=== PATIENT | female | born 1975 | race Caucasian/White ===

== ENCOUNTER 2017-11-12 11:21 | Inpatient (IN) | payer SELFPAY ==
[~2017-11-12] VITALS: Ht 167.6 cm; Wt 99.0 kg
[2017-11-12] VITALS (11 sets, daily range): BP systolic 84–134; BP diastolic 33–85; PULSE 82–100; RESP 16–28; TEMP 94.2–97.9; O2SAT 97–100
[2017-11-12] MEDS ORDERED: ROCURONIUM INJ 50 MG/5 ML SYRINGE IV PUSH ONE (12:00)
[2017-11-12] MEDS ORDERED: PROPOFOL 200 MG/20 ML AMP IV ONE (12:00)
[2017-11-12] MEDS ORDERED: SODIUM CHLORID 0.9% 500 ML INJ 500 ML IV ONE (12:00)
[2017-11-12] MEDS ORDERED: LACTATED RINGER'S 1000 ML INJ 1,000 ML IV ONE (12:00)
[2017-11-12] MEDS ORDERED: OCTREOTIDE INJ 100 MCG/ML VIAL IV PUSH ONE (12:15)
[2017-11-12] MEDS ORDERED: ONDANSETRON HCL 4 MG/2 ML VIAL IV PUSH ONE (12:15)
[2017-11-12] MEDS ORDERED: PANTOPRAZOLE SODIUM 40 MG VIAL IV PUSH ONE (12:15)
[2017-11-12] MEDS ORDERED: DEXTROSE 50% IN WATER 50 ML SYRINGE IV PUSH ONE (12:15)
[2017-11-12] MEDS ORDERED: THIAMINE INJ 100 MG in SODIUM CHLORIDE 0.9% INJ 100 ML IV ONE (12:15)
[2017-11-12] MEDS ORDERED: SODIUM CHLOR 0.9% 250 ML INJ 250 ML IV ONE ×5 (12:15→20:30)
--- NOTE | 2017-11-12 12:16 | PD ---
HPI Chief Complaint: General Weakness Time Seen by Provider: 12:04 Travel History International Travel<30 days: No Contact w/Intl Traveler<30days: No Traveled to known affect area: No History of Present Illness HPI Patient is a 42-year-old female with a history of cirrhosis secondary to alcoholism has not had a drink in 18 months per mom presents emergency department for evaluation of dark tarry stools and black emesis with coffee- ground starting last night. Patient is also been very weak and has fallen at home, patient states she feels like she is going to get sick and vomits during my initial evaluation. She appears quite pale and jaundiced. States symptoms are severe, started yesterday, context as above, not associated with any abdominal pain. [facility] Past Medical History Cirrhosis: Yes Influenza Vaccination: No ?: Not Past Surgical History Hysterectomy: Yes Social History Alcohol Use: No (quit 18 months ago) Tobacco Use: Yes (08/09 ppd) Substance Use: No Allergies-Medications (Allergen,Severity, Reaction): Coded Allergies: Penicillins (Verified Allergy, Intermediate, HIVES, 11/12/17) Reported Meds & Prescriptions Reported Meds & Active Scripts Active No Active Prescriptions or Reported Medications Review of Systems Except as stated in HPI: all other systems reviewed are Neg Physical Exam Narrative GENERAL: Well-developed well-nourished pale and jaundiced, vomiting dark loose material. SKIN: Focused skin assessment warm/dry. HEAD: Atraumatic. Normocephalic. EYES: Pupils equal and round. No scleral icterus. No injection or drainage. ENT: No nasal bleeding or discharge. Mucous membranes pink and moist. NECK: Trachea midline. No JVD. CARDIOVASCULAR: Regular rate and rhythm. No murmur appreciated. RESPIRATORY: No accessory muscle use. Clear to auscultation. Breath sounds equal bilaterally. GASTROINTESTINAL: Abdomen soft, non-tender, nondistended. Hepatic and splenic margins not palpable. MUSCULOSKELETAL: No obvious deformities. No clubbing. No cyanosis. No edema. NEUROLOGICAL: Awake and alert. Fairly slow to respond, no obvious cranial nerve deficits, full strength in all 5 extremities. She is alert and awake and oriented. PSYCHIATRIC: Appropriate mood and affect; insight and judgment normal. Data Data Last Documented VS Vital Signs Date Time Temp Pulse Resp B/P (MAP) Pulse Ox O2 Delivery O2 Flow Rate FiO2 11/12/17 11:25 97.5 90 18 111/54 (73) 100 Orders Orders Urinalysis - C+S If Indicated (11/12/17 12:05) Ed Urine Pregnancytest Poc (11/12/17 12:05) Ammonia (11/12/17 12:07) Complete Blood Count With Diff (11/12/17 12:07) Comprehensive Metabolic Panel (11/12/17 12:07) Prothrombin Time / Inr (Pt) (11/12/17 12:07) Act Partial Throm Time (Ptt) (11/12/17 12:07) Thyroid Stimulating Hormone (11/12/17 12:07) Blood Glucose (11/12/17 12:07) Ecg Monitoring (11/12/17 12:07) Iv Access Insert/Monitor (11/12/17 12:07) Oximetry (11/12/17 12:07) Sodium Chloride 0.9% Flush (Ns Flush) (11/12/17 12:15) Dextrose 50% In Swathi (Syr) Inj (D50w (Syr (11/12/17 12:15) Thiamine Inj (Thiamine Inj) (11/12/17 12:15) Type And Screen (11/12/17 12:07) Blood Product Administration (11/12/17 12:07) Sodium Chlor 0.9% 250 Ml Inj (Ns 250 Ml (11/12/17 12:15) Red Blood Cells (Rbc) (11/12/17 12:07) Ondansetron Inj (Zofran Inj) (11/12/17 12:15) Pantoprazole Inj (Protonix Inj) (11/12/17 12:15) Octreotide Inj (Sandostatin Inj) (11/12/17 12:15) Blood Product Administration (11/12/17 12:56) Sodium Chlor 0.9% 250 Ml Inj (Ns 250 Ml (11/12/17 13:00) Sodium Chlor 0.9% 1000 Ml Inj (Ns 1000 M (11/12/17 13:30) Lactic Acid (11/12/17 13:23) Chest, Single Ap (11/12/17 ) Admit Order (Ed Use Only) (11/12/17 ) Arterial Blood Gas (Abg) (11/12/17 ) Red Blood Cells (Rbc) (11/12/17 12:30) Labs Laboratory Tests Test 11/12/17 12:30 11/12/17 13:50 White Blood Count 21.3 TH/MM3 Red Blood Count 0.99 MIL/MM3 Hemoglobin 3.4 GM/DL Hematocrit 10.5 % Mean Corpuscular Volume 105.8 FL Mean Corpuscular Hemoglobin 34.0 PG Mean Corpuscular Hemoglobin Concent 32.1 % Red Cell Distribution Width 19.0 % Platelet Count 327 TH/MM3 Mean Platelet Volume 8.9 FL Neutrophils (%) (Auto) 83.6 % Lymphocytes (%) (Auto) 8.6 % Monocytes (%) (Auto) 4.5 % Eosinophils (%) (Auto) 1.8 % Basophils (%) (Auto) 1.5 % Neutrophils # (Auto) 17.8 TH/MM3 Lymphocytes # (Auto) 1.8 TH/MM3 Monocytes # (Auto) 1.0 TH/MM3 Eosinophils # (Auto) 0.4 TH/MM3 Basophils # (Auto) 0.3 TH/MM3 CBC Comment AUTO DIFF Differential Comment AUTO DIFF CONFIRMED Prothrombin Time 19.2 SEC Prothromb Time International Ratio 1.9 RATIO Activated Partial Thromboplast Time 23.4 SEC Blood Urea Nitrogen 80 MG/DL Creatinine 1.90 MG/DL Random Glucose 51 MG/DL Total Protein 4.4 GM/DL Albumin 1.9 GM/DL Calcium Level 7.3 MG/DL Alkaline Phosphatase 139 U/L Aspartate Amino Transf (AST/SGOT) 446 U/L Alanine Aminotransferase (ALT/SGPT) 179 U/L Total Bilirubin 3.7 MG/DL Sodium Level 125 MEQ/L Potassium Level 4.5 MEQ/L Chloride Level 83 MEQ/L Carbon Dioxide Level 9.8 MEQ/L Anion Gap 32 MEQ/L Estimat Glomerular Filtration Rate 29 ML/MIN Protein Corrected Calcium 8.8 MG/DL Ammonia 46 MCMOL/L Thyroid Stimulating Hormone 3rd Gen 1.350 uIU/ML Lactic Acid Level 24.3 mmol/L MDM Medical Decision Making Medical Screen Exam Complete: Yes Emergency Medical Condition: Yes Differential Diagnosis GI bleeding, variceal bleeds, ulcer bleeds, anemia, hypoglycemia, acute kidney injury, electrolyte unreality, coagulopathy. Narrative Course Patient room to the emergency department, initial evaluation this patient is jaundice and icterus as well as pallor. Vital signs have been acceptable with lowest systolic blood pressure in the high 90s. Heart rates been in the mid 80s. Patient also probably has mild encephalopathy but she understands the risks and can participate in her medical decision making at this time. Despite the normal vital signs she has a hemoglobin of 3.4, she was consented and discussed all the risk benefits competitions and alternatives for blood transfusion is agreeable. INR is 1.9 and the patient will require FFP as well. Patient did have a large volume emesis in the emergency department which is watery and black. According to her mother the patient has only been drinking water but has not been staying down. Patient had a central line started and while starting a central line had an opportunity to interview her without her mother present, she states that she did have a drink last month and that was her last drink. She states that her symptoms have actually been going on for about a week. Patient was also found to be significantly acidotic with an anion gap. Bicarb of 9, anion gap of 30. She does have a creatinine of 1.9 and a BUN of 90. Lactic acid is been drawn and sent at this time. Found to be hyponatremic with a sodium of 25, and will be given normal saline bolus. She was also given Protonix and octreotide as well as Zofran here. Patient is critically ill and requires the care of an car worker a very close proximity. Patient was discussed with Dr. Boudreaux who agrees, he also has placed orders for a stat ABG. Patient will be transferred emergently to the ICU over the [facility] hospital once a bed is available All this was discussed with the patient and her mother they understand. I was also asked to discuss with patient's brother who is RN which I did by telephone with patient's permission. Total interventions at [place]: 1 unit PRBC, thiamine 100 IV 1L NS Bolus, Zofran 8 mg IV octreotide 100 mg IV, Protonix 80 mg IV D50 25g IV The first of the plasma has arrived and have asked nursing to start it in transport as well as the next unit of PRBCs. Transport has arrived at 15:20. At this time the patient has a map of 68, she is talking to me, requesting a warm blanket. She understands that [facility] Patient is stable for short transport to [facility]. Dr. Boudreaux accepting. Critical Care Narrative Aggregate critical care time was 65 minutes. Time to perform other separately billable procedures was not included in the critical care time. My time did not include minutes spent treating any other patients simultaneously or on activities that did not directly contribute to the patient's treatment. The services I provided to this patient were to treat and/or prevent clinically significant deterioration that could result in: , disability, organ failure I provided critical care services requiring my management, as noted below: Chart data review, documentation time, medication orders and management, vital sign assessments/reviewing monitor data, ordering and reviewing lab tests, ordering and interpreting/reviewing x-rays and diagnostic studies, care of the patient and discussion of the patient with the admitting physicians. Patient is awaiting transportation and have multiple reassessments by me, I discussed the patient with Dr. Boudreaux as well as Dr. Thomas mccray. Also had to have a discussion with blood bank personnel. Procedures Procedure Narrative CENTRAL VENOUS LINE: The site was prepped with Betadine and sterilely draped. It was infiltrated with 1% lidocaine plain. The deep vein was cannulated using normal Seldinger technique. A 7 German triple lumen central line was placed in the right IJ site and secured with simple interrupted suture. The site was sterilely dressed. The patient tolerated the procedure well. Maximum sterile barrier was used, this was an ultrasound-guided technique peer Diagnosis Primary Impression: Metabolic acidosis Additional Impressions: Uremia GI bleed Severe anemia Lactic acidosis Hyponatremia Hypocalcemia Hypotension Encephalopathy Admitting Information Admitting Physician Requests: Admit Scripts No Active Prescriptions or Reported Meds Condition: Critical Gordon Wiseman MD Nov 12, 2017 12:16
[2017-11-12 12:53] LABS: AUTOMATED NEUTROPHIL # 17.8 TH/MM3 (1.8-7.7); BASOPHIL # 0.3 TH/MM3 (0-0.2); BASOPHIL % 1.5 % (0.0-2.0); EOSINOPHIL # 0.4 TH/MM3 (0-0.4); EOSINOPHIL % 1.8 % (0.0-4.0); LYMPH % 8.6 % (9.0-44.0); LYMPHOCYTE # 1.8 TH/MM3 (1.0-4.8); MEAN CELL VOLUME 105.8 FL (80.0-100.0); MEAN CORPUSCULAR HGB CONC 32.1 % (32.0-36.0); MEAN PLATELET VOLUME 8.9 FL (7.0-11.0); MONO % 4.5 % (0.0-8.0); NEUT % 83.6 % (16.0-70.0); PLATELET COUNT 327 TH/MM3 (150-450); WHITE BLOOD COUNT 21.3 TH/MM3 (4.0-11.0)
[2017-11-12 12:55] LABS: RED BLOOD COUNT 0.99 MIL/MM3 (4.00-5.30)
[2017-11-12 12:56] LABS: HEMATOCRIT 10.5 % (35.0-46.0); HEMOGLOBIN 3.4 GM/DL (11.6-15.3)
[2017-11-12 12:57] LABS: INTERNATIONAL NORMALIZED RATIO 1.9 RATIO; PROTHROMBIN TIME - PATIENT 19.2 SEC (9.8-11.6)
[2017-11-12 13:17] LABS: ALBUMIN 1.9 GM/DL (3.4-5.0); BICARBONATE 9.8 MEQ/L (21.0-32.0); CALCIUM 7.3 MG/DL (8.5-10.1); CALCIUM-PROTEIN CORRECTED 8.8 MG/DL (8.5-10.1); CREATININE 1.9 MG/DL (0.50-1.00); TOTAL BILIRUBIN ADULT 3.7 MG/DL (0.2-1.0); TOTAL PROTEIN 4.4 GM/DL (6.4-8.2)
[2017-11-12] MEDS ORDERED: SODIUM CHLOR 0.9% 1000 ML INJ 1,000 ML IV ONE ×3 (13:30→17:15)
[2017-11-12] MEDS ORDERED: SODIUM CHLOR 0.9% 1000 ML INJ 1,000 ML IV SCH (14:07)
[2017-11-12] MEDS ORDERED: PANTOPRAZOLE INJ 80 MG in SODIUM CHLORIDE 0.9% INJ 35 ML IV STA (14:10)
[2017-11-12] MEDS ORDERED: CHLORHEXIDINE GLUCONATE 2 % 1 PACK (2 CLOTHS) TOP PRN (14:15)
[2017-11-12] MEDS ORDERED: OCTREOTIDE INJ 100 MCG/ML VIAL IV ONE (14:15)
[2017-11-12] MEDS ORDERED: MISCELLANEOUS NURSING INFORMATION XX SCH (14:15)
[2017-11-12] MEDS ORDERED: CALCIUM GLUCONATE INJ 2 GM in DEXTROSE 5% IN WATER 100ML INJ 100 ML IV ONE ×2 (14:30)
[2017-11-12] MEDS ORDERED: TERBUTALINE INJ 1 MG/ML AMP SQ PRN (14:45)
[2017-11-12] MEDS ORDERED: DEXTROSE 25% IN WATER 10 ML SYRINGE ONE ×2 (14:56→14:57)
[2017-11-12] MEDS ORDERED: DEXTROSE 50% IN WATER 50 ML VIAL(D50) IV ONE (15:00)
--- NOTE | 2017-11-12 15:13 | RADRPT ---
EXAM DATE/TIME: 11/12/2017 14:48 [facility] COMPARISON: No previous studies available for comparison. INDICATIONS : Post central line, nausea and vomiting, GI bleed MEDICAL HISTORY : None. SURGICAL HISTORY : None. ENCOUNTER: Initial ACUITY: 1 day PAIN SCORE: 0/10 LOCATION: Bilateral chest FINDINGS: A single view of the chest demonstrates a right central line in superior vena cava. Minimal basilar a telectasis. No effusion or pneumothorax. CONCLUSION: 1. Right central line in superior vena cava. Minimal basal atelectasis. Everton Thao MD on November 12, 2017 at 15:10 Board Certified Radiologist. This report was verified electronically.
[2017-11-12] MEDS ORDERED: SODIUM BICARBONATE 8.4% INJ 50 MEQ/50 ML SYR IV PUSH ONE (15:15)
[2017-11-12] MEDS: NOREPINEPHRINE INJ 4 MG in SODIUM CHLOR 0.9% 250 ML INJ 246 ML IV PRN ×2 (16:00→23:38)
[2017-11-12] MEDS: SODIUM BICARBONATE 8.4% INJ 150 MEQ in WATER STERILE FOR INJ 850 ML IV SCH ×2 (16:00→23:44)
[2017-11-12] MEDS: PROPOFOL 1000 MG/100 ML INJ 100 ML IV PRN (16:30)
[2017-11-12] MEDS ORDERED: PROPOFOL 500 MG/50 ML INJ 50 ML ONE (16:36)
--- NOTE | 2017-11-12 16:45 | PD.PROCEDR ---
Procedure Note Procedure REASON FOR PROCEDURE Invasive BP monitoring, hemorrhagic shock PROCEDURE PERFORMED Right femoral art line placement. CONSENT Emergency procedure ANESTHESIA Local injection of 1% Lidocaine DESCRIPTION OF THE PROCEDURE The patient was placed in supine, position. The area was exposed and cleansed with ChloraPrep, times two. Large sterile drape was used to cover the patient, with the site exposed, under sterile conditions the introducer needle was inserted and arterial flash was obtained. The guide wire was then advanced without any restriction and the needle was removed. Using Seldinger technique the arterial catheter was advanced over the guide wire. The guide wire was removed. Good arterial wave form obtained. Antibiotic disc was placed around puncture site. The arterial line was secured to the skin with one interrupted 2.0 silk sutures. The area was bandaged with sterile see-through dressing. Karsten Boudreaux MD Nov 12, 2017 16:45
--- NOTE | 2017-11-12 16:52 | HHI.HP ---
HPI Service Critical Care Medicine Primary Care Physician No Primary Care Physician Admission Diagnosis Severe Anemia, Upper and lower GI bleeding, Acidosis. Diagnosis: (1) Hemorrhagic shock Diagnosis: Principal (2) Upper gastrointestinal bleed Diagnosis: Principal (3) Severe anemia Diagnosis: Principal (4) Metabolic acidosis Diagnosis: Principal (5) Lactic acidemia Diagnosis: Principal (6) Coagulopathy Diagnosis: Principal (7) Encephalopathy Diagnosis: Principal (8) Hyponatremia Diagnosis: Principal (9) Hypocalcemia (10) Acute kidney failure Diagnosis: Principal (11) Liver cirrhosis Diagnosis: Secondary (12) Alcohol dependence Diagnosis: Secondary Chief Complaint: Upper GIB Travel History International Travel<30 Days: No Contact w/Intl Traveler <30 Da: No Traveled to Known Affected Are: No Sepsis Criteria SIRS Criteria (2 or more): Heart rate over 90, WBC > 24944, < 4000 or > 10% bands Sepsis Criteria (SIRS+source): Infect source susp/known Severe Sepsis (+one): Lactate >2 Criteria Outcome: Meets severe sepsis criteria History of Present Illness Patient is a 42-year-old female with past medical history significant for alcohol dependence and cirrhosis who presented to the [facility] emergency department for dark starry stools and coffee-ground vomiting starting last night. Patient had been very weak and had sustained a fall at home according to the history. In the ER she was very pale jaundiced. Had one episode of large amount of coffee-ground vomiting in the ED. hemoglobin came back at 3.4. Sodium was 125, bicarb was only 10, anion gap 32, BUN 80 with creatinine of 1.9. Patient received 1 unit of normal saline bolus. Right IJ central line was placed and blood transfusion and FFP was ordered for INR of 1.9. Patient's blood pressure started to trend down, and emergency release blood was ordered after 1 unit of blood transfusion, blood pressure started to stabilized. Patient received in addition to 1 unit PRBC, IV thiamine, Zofran, octreotide bolus, Protonix 80 mg IV bolus, and calcium. I was contacted by the ED physician and after discussion with Dr. Wiseman decision was made to emergently transfer patient to Main hospital for emergent EGD and other interventions if needed. I placed patient on bicarb infusion, Protonix infusion and octreotide infusion. I evaluated the patient immediately after arrival to the main ICU. Patient remains alert awake but confused. Her lactic acid came back at 25, additional fluid bolus was ordered. Currently receiving blood and blood product transfusion. Patient was intubated for airway protection and also to facilitate EGD. After intubation I also placed a right femoral central line. After EGD patient will need a CT of the abdomen pelvis with IV and oral contrast to rule out ischemic bowel as the lactic acid is severely elevated. Empiric antibiotics with IV vancomycin, IV Azactam, IV Flagyl. Discussed the patient multiple times with Dr. Roche and Dr. Wiseman Review of Systems ROS Limitations: Altered Mental Status Past Family Social History Allergies: Coded Allergies: Penicillins (Verified Allergy, Intermediate, HIVES, 11/12/17) Past Medical History Liver cirrhosis Past Surgical History Unable to obtain surgical history Reported Medications Apparently not on any home medication Active Ordered Medications Currently on Protonix infusion, octreotide infusion, Levophed infusion Family History Unable to obtain at this time Social History Apparently quit drinking 18 months ago, but later admitted to ER physician that she had 1 drink about a month ago Smokes half packs of cigarettes a day Physical Exam Vital Signs Vital Signs Date Time Temp Pulse Resp B/P (MAP) Pulse Ox O2 Delivery O2 Flow Rate FiO2 11/12/17 15:25 84 16 94/38 (56) 97 11/12/17 14:36 97.5 82 16 84/33 97 11/12/17 14:10 100 Nasal Cannula 3.00 11/12/17 13:00 84 16 100/45 (63) 98 11/12/17 11:25 97.5 90 18 111/54 (73) 100 Physical Exam GENERAL: Well-developed well-nourished was very pale pale and jaundiced, critical appearing SKIN: Focused skin assessment warm/dry. Very pale HEAD: Atraumatic. Normocephalic. EYES: Pupils equal and round. Positive icterus, positive pallor ENT: No nasal bleeding or discharge. Mucous membranes dry NECK: Trachea midline. No JVD. CARDIOVASCULAR: Tachycardic rate and rhythm. No murmur appreciated. RESPIRATORY: No accessory muscle use. Clear to auscultation. Breath sounds equal bilaterally. GASTROINTESTINAL: Abdomen soft, non-tender, nondistended. Hepatic and splenic margins not palpable. Stretch griggs noted MUSCULOSKELETAL: Extremities are poorly perfused NEUROLOGICAL: Awake and alert. Appears confused. Moving all extremities Laboratory Laboratory Tests Test 11/12/17 12:30 11/12/17 13:50 11/12/17 14:27 White Blood Count 21.3 Red Blood Count 0.99 Hemoglobin 3.4 Hematocrit 10.5 Mean Corpuscular Volume 105.8 Mean Corpuscular Hemoglobin 34.0 Mean Corpuscular Hemoglobin Concent 32.1 Red Cell Distribution Width 19.0 Platelet Count 327 Mean Platelet Volume 8.9 Neutrophils (%) (Auto) 83.6 Lymphocytes (%) (Auto) 8.6 Monocytes (%) (Auto) 4.5 Eosinophils (%) (Auto) 1.8 Basophils (%) (Auto) 1.5 Neutrophils # (Auto) 17.8 Lymphocytes # (Auto) 1.8 Monocytes # (Auto) 1.0 Eosinophils # (Auto) 0.4 Basophils # (Auto) 0.3 CBC Comment AUTO DIFF Differential Comment AUTO DIFF CONFIRMED Prothrombin Time 19.2 Prothromb Time International Ratio 1.9 Activated Partial Thromboplast Time 23.4 Blood Urea Nitrogen 80 Creatinine 1.90 Random Glucose 51 Total Protein 4.4 Albumin 1.9 Calcium Level 7.3 Alkaline Phosphatase 139 Aspartate Amino Transf (AST/SGOT) 446 Alanine Aminotransferase (ALT/SGPT) 179 Total Bilirubin 3.7 Sodium Level 125 Potassium Level 4.5 Chloride Level 83 Carbon Dioxide Level 9.8 Anion Gap 32 Estimat Glomerular Filtration Rate 29 Protein Corrected Calcium 8.8 Ammonia 46 Thyroid Stimulating Hormone 3rd Gen 1.350 Lactic Acid Level 24.3 Blood Gas Puncture Site RT RADIAL Blood Gas Patient Temperature 37.0 Venous Blood pH 7.21 Venous Blood Partial Pressure CO2 21 Venous Blood Partial Pressure O2 29 Venous Blood HCO3 8 Venous Blood Oxygen Saturation 31 Venous Blood Oxygen Content 1.6 Venous Blood Base Excess -18.3 Oxygen Delivery Device NASAL CANNULA Blood Gas Liter Flow 3 Result Diagram: 11/12/17 1230 11/12/17 1230 Imaging Chest x-ray showed no acute findings Septic Shock Reassessment Septic shock perfusion: reassessment completed Caprini VTE Risk Assessment Caprini VTE Risk Assessment: Mod/High Risk (score >= 2) VTE Pharm Contraindication: Hemorrhage Caprini Risk Assessment Model Point Value = 1 Point Value = 2 Point Value = 3 Point Value = 5 Age 41-60 Minor surgery BMI > 25 kg/m2 Swollen legs Varicose veins or History of unexplained or recurrent spontaneous Oral contraceptives or hormone replacement Sepsis (< 1 month) Serious lung disease, including pneumonia (< 1 month) Abnormal pulmonary function Acute myocardial infarction Congestive heart failure (< 1 month) History of inflammatory bowel disease Medical patient at bed rest Age 61-74 Arthroscopic surgery Major open surgery (> 45 min) Laparoscopic surgery (> 45 min) Malignancy Confined to bed (> 72 hours) Immobilizing plaster cast Central venous access Age >= 75 History of VTE Family history of VTE Factor V Leiden Prothrombin [id number] Lupus anticoagulant Anticardiolipin antibodies Elevated serum homocysteine Heparin-induced thrombocytopenia Other congenital or acquired thrombophilia Stroke (< 1 month) Elective arthroplasty Hip, pelvis, or leg fracture Acute spinal cord injury (< 1 month) Prophylaxis Regimen Total Risk Factor Score Risk Level Prophylaxis Regimen 0-1 Low Early ambulation 2 Moderate Order ONE of the following: *Sequential Compression Device (SCD) *Heparin 5000 units SQ BID 3-4 Higher Order ONE of the following medications: *Heparin 5000 units SQ TID *Enoxaparin/Lovenox 40 mg SQ daily (WT < 150 kg, CrCl > 30 mL/min) *Enoxaparin/Lovenox 30 mg SQ daily (WT < 150 kg, CrCl > 10-29 mL/min) *Enoxaparin/Lovenox 30 mg SQ BID (WT < 150 kg, CrCl > 30 mL/min) AND/OR *Sequential Compression Device (SCD) 5 or more Highest Order ONE of the following medications: *Heparin 5000 units SQ TID (Preferred with Epidurals) *Enoxaparin/Lovenox 40 mg SQ daily (WT < 150 kg, CrCl > 30 mL/min) *Enoxaparin/Lovenox 30 mg SQ daily (WT < 150 kg, CrCl > 10-29 mL/min) *Enoxaparin/Lovenox 30 mg SQ BID (WT < 150 kg, CrCl > 30 mL/min) AND *Sequential Compression Device (SCD) Assessment and Plan Assessment and Plan NEURO: Hepatic encephalopathy -Intubated for airway protection and to facilitate procedures -Propofol for sedation and ventilator synchrony -Supplement thiamine -No lactulose until cleared by GI RESP: Acute respiratory failure -Intubated and placed on mechanical ventilation -DuoNeb every 6 hours as needed -Ventilator bundle, head of bed elevation to 30 -Sputum culture CV: Hemorrhagic shock Lactic acidosis, severe -Normal saline IV fluids, total 3 L bolus -Maintenance fluid bicarb infusion at 150 mL/h -Levophed to keep map above 65 if needed -Trend lactic acid GI/HEME: Upper GI bleed most likely variceal Liver cirrhosis Severe anemia requiring transfusion Coagulopathy -Placed on Protonix bolus and infusion at 8 mg/h -Placed on octreotide bolus and infusion -Emergent EGD by Dr. Roche pending -Transfuse a total of 3 units PRBC, 2 FFP, 1 platelet -Trend H&H, INR -Further recommendations after EGD -After EGD patient will need CT abdomen pelvis with IV and oral contrast to rule out ischemic colitis, also evaluate gallbladder : Acute kidney injury/prerenal Possible hepatorenal syndrome -Secondary to severe dehydration and ATN -Continue IV fluid resuscitation as above -Place Ward catheter. -Hepatorenal syndrome cannot be ruled out at this time ID: Leukocytosis Probable sepsis -IV vancomycin. Azactam, Flagyl -Send sputum culture, blood culture, urine culture -SBP prophylaxis with above antibiotics -Further recommendation for CT abdomen pelvis ENDO: -Electrolyte replacement per protocol PROPH: -Bilateral lower extremity SCDs. Chemical DVT prophylaxis is contraindicated, continue IV Protonix LINES: -Right IJ central line, right femoral arterial line CC time 90 min excluding procedures Patient is very critically ill, severe hemorrhagic shock with lactic acid of approximately 25. Prognosis is guarded at this time Code Status Full Discussed Condition With Kaley Lomeli Problem Qualifiers (1) Liver cirrhosis: (2) Alcohol dependence: Karsten Boudreaux MD Nov 12, 2017 16:52
[2017-11-12] MEDS: OCTREOTIDE INJ 500 MCG in SODIUM CHLORID 0.9% 500 ML INJ 499.5 ML IV SCH (16:53)
[2017-11-12] MEDS: PANTOPRAZOLE INJ 80 MG in SODIUM CHLORIDE 0.9% INJ 100 ML IV SCH (16:55)
[2017-11-12] MEDS: AZTREONAM INJ 2,000 MG in SODIUM CHLORIDE 0.9% INJ 100 ML IV SCH ×2 (16:56→22:48)
--- NOTE | 2017-11-12 17:05 | PD.PROCEDR ---
Procedure Note Procedure After the risks and benefits were discussed the following procedure was performed: INTUBATION: The patient was put in optimal position for the procedure. Rapid sequence intubation was initiated by me using 20 milligrams of etomidate IV and 5 milligrams of Versed IV, 50 mg IV Rocuronium. DL with Mac 4 blade, Grade 1 view. The patient was intubated with a 8 cuffed endotracheal tube. Tube placement was confirmed by visualization of the tube and balloon passing through the cords, capnometry and subsequent chest x-ray. Breath sounds were equal and well aerated bilaterally postintubation. No breath sounds over stomach. Patient tolerated procedure well. Karsten Boudreaux MD Nov 12, 2017 17:05
--- NOTE | 2017-11-12 17:20 | RADRPT ---
EXAM DATE/TIME: 11/12/2017 16:56 [facility] COMPARISON: No previous studies available for comparison. INDICATIONS : E-T tube placement. MEDICAL HISTORY : None. SURGICAL HISTORY : None. ENCOUNTER: Subsequent ACUITY: 1 day PAIN SCORE: Non-responsive. LOCATION: Bilateral chest FINDINGS: Trace left base atelectasis developing. No pleural effusion. No pneumothorax. Patient is now intubated. Endotracheal tube tip approximately 4 cm above the dulce. Right IJ line ag ain seen, tip in the superior vena cava. CONCLUSION: 1. Mild left base atelectasis. 2. New endotracheal tube, appropriately positioned. 3. Right IJ line unchanged, tip in the superior vena cava. Janusz Curtis MD on November 12, 2017 at 17:17 Board Certified Radiologist. This report was verified electronically.
[2017-11-12 17:23] LABS: BILIRUBIN, URINE NEG (NEG); BLOOD, URINE NEG (NEG); GLUCOSE,URINE NEG (NEG); KETONE, URINE TRACE mg/dL (NEG); MUCUS URINE FEW /lpf (OCC); NITRITE,URINE NEG (NEG); URINE COLOR YELLOW (YELLW/STRAW); URINE LEUKOCYTE ESTERASE NEG (NEG)
--- NOTE | 2017-11-12 17:33 | GIPROC ---
[facility] [address] [facility]. [facility], [address] EGD PROCEDURE REPORT EXAM DATE: 11/12/2017 PATIENT NAME: Maureen Pratt MR #: [id number] BIRTHDATE: 1975 ATTENDING: Nanette Plummer MD ORDER #: [id number] PROGRAMS DIRECTOR: Delia Aguilar and Breanne Lu STATUS: inpatient INDICATIONS: The patient is a 42 yr old female here for an EGD due to acute post hemorrhagic anemia PROCEDURE PERFORMED: EGD w/ ablation MEDICATIONS: None and Per Anesthesia. TOPICAL ANESTHETIC: CONSENT: The patient understands the risks and benefits of the procedure and understands that these risks include, but are not limited to: sedation, allergic reaction, infection, perforation and/or bleeding. Alternative means of evaluation and treatment include, among others: physical exam, x-rays, and/or surgical intervention. The patient elects to proceed with this endoscopic procedure. medical equipment was checked for proper function. Hand hygiene and appropriate measures for infection prevention was taken. After the risks, benefits and alternatives of the procedure were thoroughly explained, Informed consent was verified, confirmed and timeout was successfully executed by the treatment team. The patient was anesthetized with topical anesthesia and the Pentax EG-[id number] endoscope was introduced through the mouth and advanced to the second portion of the duodenum. Retroflexed views revealed no abnormalities The gastroscope was then slowly withdrawn and removed. ESOPHAGUS: There was LA Class B esophagitis noted. STOMACH: There was mild gastritis in the gastric antrum. Some coffee grounds. No Blood. DUODENUM: A medium sized angiodysplastic lesion with bleeding was found in the 2nd part of the duodenum. Bipolar (BICAP) cautery with a 10Fr probe was applied to the site(s) for 5 secs. Light pressure was applied to the cautery site with complete hemostasis achieved. ADVERSE EVENTS: There were no complications. IMPRESSIONS: 1. There was LA Class B esophagitis noted 2. There was mild gastritis in the gastric antrum; Some coffee grounds. No Blood 3. Angiodysplastic lesion with bleeding was found in the 2nd part of the duodenum; Bipolar (BICAP) cautery with a 10Fr probe was applied to the site(s) for 5 secs; with complete hemostasis achieved 4. Retroflexed views revealed no abnormalities RECOMMENDATIONS: 1. Continue PPI 2. Colonoscopy 3. NG to L.I.S, monitor H/H PATIENT CONDITION: stable DISPOSITION: Inpatient REPEAT EXAM: Return 2 days EGD Nanette Plummer MD eSigned: Nanette Plummer MD 11/12/2017 5:32 PM cc: PATIENT NAME: Maureen Pratt MR#: [id number]
[2017-11-12] MEDS ORDERED: MIDAZOLAM HCL 2 MG/2 ML VIAL ONE (17:38)
[2017-11-12] MEDS ORDERED: PEG (High)/E-LYTE SOLN 4000 ML BTL NG ONE (18:00)
[2017-11-12] MEDS ORDERED: SODIUM BICARBONATE 8.4% INJ 50 MEQ/50 ML SYR IV ONE (18:00)
--- NOTE | 2017-11-12 18:04 | MB ---
cc: Nanette Plummer MD, Sinoj K MD DATE: 11/12/2017 REASON FOR CONSULTATION: Acute GI bleeding with hypotensive shock. HISTORY OF PRESENT ILLNESS: Ms. Gant is a 42-year-old lady with a history of alcohol dependence and possible liver cirrhosis, basically presented to the emergency room with dark stools, coffee ground emesis and jaundice. The patient's admission hemoglobin was 3.4. Unclear as to what her baseline is. She was emergently evaluated by Dr. Karsten Boudreaux and admitted to the [facility]. The patient was then electively intubated and sedated. At the time of my exam, patient had received 3 units of packed RBCs, 1 pack of platelets and 2 units of FFP. She also has octreotide infusion. As per history, the patient has had both hematemesis and hematochezia. REVIEW OF SYSTEMS: Unobtainable. PAST MEDICAL HISTORY: Liver cirrhosis, alcohol use. PAST SURGICAL HISTORY: None given. MEDICINES ON ADMISSION. None given. FAMILY HISTORY: Noncontributory. SOCIAL HISTORY: The patient is a smoker. Also drinks alcohol. PHYSICAL EXAMINATION: GENERAL: Reveals a young lady who is deeply jaundiced. HEAD AND NECK: Anicteric sclerae. CHEST: Bilateral air entry with rales. ABDOMEN: Obese, soft. Bowel sounds are diminished. CENTRAL NERVOUS SYSTEM: Nonfocal. LABORATORY AND DIAGNOSTIC DATA: Labs revealed a bilirubin of 3.7, AST of 446, lactic acid 24.3. INR 1.9. Hemoglobin 3.4, white cell count 21,000, platelet count 327,000. Chest x-ray, atelectasis. IMPRESSION: Acute gastrointestinal bleeding, possible hypotensive, possible septic shock. RECOMMENDATIONS: Emergent EGD planned at the bedside. CT scan of the abdomen and pelvis has been ordered. IV octreotide, IV Protonix, IV antibiotics and blood products as per the time piece repairer. Further recommendations to follow after the endoscopy. Thank you for the referral. MD KADEEM Fox/DOUGIE , 05:52 PM , 06:03 PM
--- NOTE | 2017-11-12 18:19 | RADRPT ---
EXAM DATE/TIME: 11/12/2017 17:51 [facility] COMPARISON: No previous studies available for comparison. INDICATIONS : Nasogastric tube placement. MEDICAL HISTORY : None. SURGICAL HISTORY : None. ENCOUNTER: Subsequent ACUITY: 1 day PAIN SCORE: Non-responsive. LOCATION: Bilateral abdomen FINDINGS: Nasogastric tube tip is near the GE junction. There is gaseous distention of the stomach. Diffusely u pper limits of normal caliber small bowel. No free air seen. CONCLUSION: Nasogastric tube tip is at the GE junction and needs to be advanced 10-15 cm. Mild gastric and small bowel distention. Abdomen CT scheduled. Janusz Curtis MD on November 12, 2017 at 18:15 Board Certified Radiologist. This report was verified electronically.
[2017-11-12] MEDS ORDERED: VANCOMYCIN INJ 1,000 MG in SODIUM CHLOR 0.9% 250 ML INJ 250 ML IV ONE (19:00)
[2017-11-12] MEDS ORDERED: VANCOMYCIN 1 GM/200 ML PREMIX IV ONE (19:00)
[2017-11-12] MEDS: DIATRIZOATE MEGLUM/DIATRIZOATE SOD 9 ML CUP PO ONE ×2 (19:00→20:52)
[2017-11-12 19:52] LABS: ALBUMIN 2.1 GM/DL (3.4-5.0); ALKALINE PHOSPHATASE 120 U/L (45-117); ALT (GPT) 226 U/L (10-53); AST (GOT) 626 U/L (15-37); BICARBONATE 19.1 MEQ/L (21.0-32.0); BLOOD UREA NITROGEN 65 MG/DL (7-18); CALCIUM 7.3 MG/DL (8.5-10.1); CALCIUM-PROTEIN CORRECTED 8.7 MG/DL (8.5-10.1); CHLORIDE 88 MEQ/L (98-107); CREATININE 1.51 MG/DL (0.50-1.00); GLOMERULAR FILTRATION RATE 38 ML/MIN (>89); GLUCOSE,RANDOM 193 MG/DL (74-106); SODIUM (NA) 130 MEQ/L (136-145); TOTAL BILIRUBIN ADULT 5.5 MG/DL (0.2-1.0); TOTAL PROTEIN 4.6 GM/DL (6.4-8.2)
--- NOTE | 2017-11-12 20:19 | RADRPT ---
EXAM DATE/TIME: 11/12/2017 19:56 [facility] COMPARISON: ABDOMEN KUB ONLY, November 12, 2017, 17:51. INDICATIONS : NG tube placement. MEDICAL HISTORY : None. SURGICAL HISTORY : None. ENCOUNTER: Initial ACUITY: 2 days PAIN SCORE: 0/10 LOCATION: Bilateral abdomen FINDINGS: Tip of the NG tube is still near the GE junction. Mild gaseous distention of the stomach but less benji n earlier today. CONCLUSION: NG tube tip is at the GE junction. Janusz Curtis MD on November 12, 2017 at 20:16 Board Certified Radiologist. This report was verified electronically.
[2017-11-12] MEDS ORDERED: CALCIUM GLUCONATE INJ 1 GM in DEXTROSE 5% IN WATER 100ML INJ 100 ML IV ONE ×2 (20:30)
[2017-11-12] MEDS: CHLORHEXIDINE 0.12% (ORAL KIT) 15 ML CUP MT SCH (20:43)
[2017-11-12] MEDS: METRONIDAZOLE 500 MG/100 ML ISONTONIC SOLN IV SCH (20:51)
--- NOTE | 2017-11-12 20:57 | RADRPT ---
EXAM DATE/TIME: 11/12/2017 20:28 [facility] COMPARISON: ABDOMEN SINGLE VIEW, November 12, 2017, 19:56. INDICATIONS : Change from nasogastric to orogastric tube. MEDICAL HISTORY : None. SURGICAL HISTORY : None. ENCOUNTER: Subsequent ACUITY: 1 day PAIN SCORE: Non-responsive. LOCATION: Bilateral abdomen FINDINGS: There is a catheter coiled in the stomach. Stomach is decompressed. No small or large bowel distentio n demonstrated. No evidence of free air. CONCLUSION: Orogastric tube is coiled in the stomach. Stomach is now decompressed. Janusz Curtis MD on November 12, 2017 at 20:54 Board Certified Radiologist. This report was verified electronically.
[2017-11-12] MEDS: fentaNYL DRIP 250 ML IV PRN (21:30)
--- NOTE | 2017-11-12 22:21 | RADRPT ---
EXAM DATE/TIME: 11/12/2017 22:00 [facility] COMPARISON: No previous studies available for comparison. INDICATIONS : Follow up abdominal pain. ORAL CONTRAST: Prescribed oral contrast ingested. RADIATION DOSE: 9.68 CTDIvol (mGy) MEDICAL HISTORY : Cirrhosis. SURGICAL HISTORY : Hysterectomy. ENCOUNTER: Initial ACUITY: 1 day PAIN SCALE: Non-responsive LOCATION: abdomen TECHNIQUE: Volumetric scanning of the abdomen and pelvis was performed. Using automated exposure control and ad justment of the mA and/or kV according to patient size, radiation dose was kept as low as reasonably achievable to obtain optimal diagnostic quality images. DICOM format image data is available electro nically for review and comparison. FINDINGS: LOWER LUNGS: Mild atelectasis at both bases. Possible infiltrate developing on the left. LIVER: Markedly nodular liver compatible cirrhosis. There is questionable mass along the medial border of th e right hepatic lobe, series 2 image 31, measuring 5.2 cm. There is small ascites. Recanalized umbili anshu vein and caput medusa demonstrated. Normal spleen size. SPLEEN: Normal size without lesion. PANCREAS: Within normal limits. KIDNEYS: Normal in size and shape. There is no mass, stone, or hydronephrosis. ADRENAL GLANDS: Within normal limits. VASCULAR: There is no aortic aneurysm. BOWEL/MESENTERY: The stomach, small bowel, and colon demonstrate no acute abnormality. There is no free intraperitone al air or fluid. There is an orogastric tube coiled in the stomach. No obstruction or inflammatory ch bandar is seen of the gastrointestinal tract. ABDOMINAL WALL: Within normal limits. RETROPERITONEUM: There is no lymphadenopathy. BLADDER: No wall thickening or mass. REPRODUCTIVE: Within normal limits. INGUINAL: There is no lymphadenopathy or hernia. MUSCULOSKELETAL: No acute bony abnormality. CONCLUSION: 1. Cirrhosis with small ascites and a recanalized umbilical vein with caput medusa. Possible mass of the right hepatic lobe and a followup nonemergent MRI of the abdomen with and without contrast is rec ommended. 2. Orogastric tube is coiled in the stomach. 3. No obstruction or acute inflammatory changes are seen of the gastrointestinal tract. 4. Atelectasis/infiltrate left lung base. Trace atelectasis right lung base. Janusz Curtis MD on November 12, 2017 at 22:14 Board Certified Radiologist. This report was verified electronically.
[2017-11-12 23:54] LABS: AUTOMATED NEUTROPHIL # 13.3 TH/MM3 (1.8-7.7); BASOPHIL # 0.1 TH/MM3 (0-0.2); BASOPHIL % 0.4 % (0.0-2.0); EOSINOPHIL # 0.1 TH/MM3 (0-0.4); EOSINOPHIL % 0.5 % (0.0-4.0); HEMATOCRIT 24.5 % (35.0-46.0); HEMOGLOBIN 8.6 GM/DL (11.6-15.3); LYMPH % 6.5 % (9.0-44.0); MEAN CORPUSCULAR HEMOGLOBIN 31.7 PG (27.0-34.0); MEAN CORPUSCULAR HGB CONC 35.3 % (32.0-36.0); MEAN PLATELET VOLUME 7.9 FL (7.0-11.0); MONO % 8.8 % (0.0-8.0); MONOCYTE # 1.4 TH/MM3 (0-0.9); NEUT % 83.8 % (16.0-70.0); PLATELET COUNT 171 TH/MM3 (150-450); RED BLOOD COUNT 2.72 MIL/MM3 (4.00-5.30); WHITE BLOOD COUNT 15.9 TH/MM3 (4.0-11.0)
[2017-11-13] VITALS (18 sets, daily range): BP systolic 105–122; BP diastolic 42–55; PULSE 60–96; RESP 16–23; TEMP 97.9–99.2; O2SAT 100
[2017-11-13 00:05] LABS: INTERNATIONAL NORMALIZED RATIO 1.7 RATIO; PROTHROMBIN TIME - PATIENT 16.7 SEC (9.8-11.6)
[2017-11-13] MEDS: PROPOFOL 1000 MG/100 ML INJ 100 ML IV PRN ×5 (01:00→20:06)
[2017-11-13 01:32] LABS: LACTIC ACID SEPSIS PROTOCOL 4.8 mmol/L (0.4-2.0)
[2017-11-13] MEDS: OCTREOTIDE INJ 500 MCG in SODIUM CHLORID 0.9% 500 ML INJ 499.5 ML IV SCH ×3 (01:38→20:07)
[2017-11-13] MEDS: PANTOPRAZOLE INJ 80 MG in SODIUM CHLORIDE 0.9% INJ 100 ML IV SCH ×3 (01:38→21:52)
[2017-11-13] MEDS: CHLORHEXIDINE GLUCONATE 2 % 1 PACK (2 CLOTHS) TOP SCH (04:00)
[2017-11-13] MEDS: METRONIDAZOLE 500 MG/100 ML ISONTONIC SOLN IV SCH ×3 (05:28→20:06)
[2017-11-13] MEDS: SODIUM BICARBONATE 8.4% INJ 150 MEQ in WATER STERILE FOR INJ 850 ML IV SCH (05:33)
[2017-11-13 05:35] LABS: INTERNATIONAL NORMALIZED RATIO 1.7 RATIO; PROTHROMBIN TIME - PATIENT 17.3 SEC (9.8-11.6)
[2017-11-13 05:40] LABS: AUTOMATED NEUTROPHIL # 11.2 TH/MM3 (1.8-7.7); BASOPHIL % 0.3 % (0.0-2.0); EOSINOPHIL # 0.1 TH/MM3 (0-0.4); EOSINOPHIL % 0.9 % (0.0-4.0); HEMATOCRIT 24.5 % (35.0-46.0); HEMOGLOBIN 8.8 GM/DL (11.6-15.3); LYMPH % 11.8 % (9.0-44.0); LYMPHOCYTE # 1.7 TH/MM3 (1.0-4.8); MEAN CELL VOLUME 88.1 FL (80.0-100.0); MEAN CORPUSCULAR HEMOGLOBIN 31.5 PG (27.0-34.0); MEAN CORPUSCULAR HGB CONC 35.8 % (32.0-36.0); MEAN PLATELET VOLUME 7.4 FL (7.0-11.0); MONO % 9.4 % (0.0-8.0); MONOCYTE # 1.4 TH/MM3 (0-0.9); NEUT % 77.6 % (16.0-70.0); PLATELET COUNT 158 TH/MM3 (150-450); RED BLOOD COUNT 2.78 MIL/MM3 (4.00-5.30); RED CELL DISTRIBUTION WIDTH 16.3 % (11.6-17.2); WHITE BLOOD COUNT 14.4 TH/MM3 (4.0-11.0)
[2017-11-13 06:26] LABS: CALCIUM 6.7 MG/DL (8.5-10.1); CALCIUM-PROTEIN CORRECTED 8.2 MG/DL (8.5-10.1); CREATININE 1.2 MG/DL (0.50-1.00); MAGNESIUM 2.5 MG/DL (1.5-2.5); TOTAL PROTEIN 4.3 GM/DL (6.4-8.2)
--- NOTE | 2017-11-13 06:34 | HHI.CCPN ---
Subjective Remarks/Hospital Course Patient is a 42-year-old female with past medical history significant for alcohol dependence and cirrhosis who presented to the [facility] emergency department for dark starry stools and coffee-ground vomiting starting last night. Patient had been very weak and had sustained a fall at home according to the history. In the ER she was very pale jaundiced. Had one episode of large amount of coffee-ground vomiting in the ED. hemoglobin came back at 3.4. Sodium was 125, bicarb was only 10, anion gap 32, BUN 80 with creatinine of 1.9. Patient received 1 unit of normal saline bolus. Right IJ central line was placed and blood transfusion and FFP was ordered for INR of 1.9. Patient's blood pressure started to trend down, and emergency release blood was ordered after 1 unit of blood transfusion, blood pressure started to stabilized. Patient received in addition to 1 unit PRBC, IV thiamine, Zofran, octreotide bolus, Protonix 80 mg IV bolus, and calcium. I was contacted by the ED physician and after discussion with Dr. Wiseman decision was made to emergently transfer patient to [facility] hospital for emergent EGD and other interventions if needed. I placed patient on bicarb infusion, Protonix infusion and octreotide infusion. I evaluated the patient immediately after arrival to the main ICU. Patient remains alert awake but confused. Her lactic acid came back at 25, additional fluid bolus was ordered. Currently receiving blood and blood product transfusion. Patient was intubated for airway protection and also to facilitate EGD. After intubation I also placed a right femoral central line. After EGD patient will need a CT of the abdomen pelvis with IV and oral contrast to rule out ischemic bowel as the lactic acid is severely elevated. Empiric antibiotics with IV vancomycin, IV Azactam, IV Flagyl. Discussed the patient multiple times with Dr. Roche and Dr. Wiseman 11/13: Remains critical but some improvement in perfusion. Received 6 units of PRBC to FFP and 1 unit of platelets overnight. Urine output approximately 1 L in the last 12 hours. Hemoglobin 8.8 today, INR 1.7. Lactate 24.3 to 3 today. ABG shows resolution of metabolic acidosis. Will discontinue bicarbonate infusion reduce PRVC rate to 16. EGD yesterday showed mild gastritis in the gastric antrum, with some coffee-ground material. Angiodysplastic lesion with bleeding was found in the 2nd part of the duodenum; cauterized with complete hemostasis. CT abdomen pelvis showed no signs of bowel ischemia, probable mass right lobe of liver Objective Vital Signs Date Time Temp Pulse Resp B/P (MAP) Pulse Ox O2 Delivery O2 Flow Rate FiO2 11/13/17 06:00 78 11/13/17 05:42 100/40 11/13/17 04:00 99.2 20 100 11/13/17 04:00 40 11/12/17 16:00 Mechanical Ventilator 11/12/17 14:10 3.00 Intake and Output 11/13/17 11/13/17 11/14/17 08:00 16:00 00:00 Intake Total 5900 ml Output Total 4100 ml Balance 1800 ml Result Diagram: 11/13/17 0509 11/12/17 1850 Other Results Laboratory Tests Test 11/12/17 14:27 11/12/17 16:38 11/12/17 20:18 Blood Gas Puncture Site RT RADIAL ART LINE MARIA ALEJANDRA Blood Gas Patient Temperature 37.0 98.6 98.6 Venous Blood pH 7.21 (7.360-7.400) Venous Blood Partial Pressure CO2 21 mmHg (44-48) Venous Blood Partial Pressure O2 29 mmHg (35-40) Venous Blood HCO3 8 mmol/L (22-26) Venous Blood Oxygen Saturation 31 % (70-76) Venous Blood Oxygen Content 1.6 Vol % (9.0-17.0) Venous Blood Base Excess -18.3 mmol/L (-2-2) Oxygen Delivery Device NASAL CANNULA VENTILATOR VENTILATOR Blood Gas Liter Flow 3 L/M Blood Gas HCO3 9 mmol/L (22-26) 21 mmol/L (22-26) Blood Gas Base Excess -18.6 mmol/L (-2-2) -1.8 mmol/L (-2-2) Blood Gas Oxygen Saturation 97 % (90-100) 97 % (90-100) Arterial Blood pH 7.14 (7.380-7.420) 7.47 (7.380-7.420) Arterial Blood Partial Pressure CO2 26 mmHg (38-42) 30 mmHg (38-42) Arterial Blood Partial Pressure O2 263 mmHg (61-120) 196 mmHg (61-120) Arterial Blood Oxygen Content 8.1 Vol % (12.0-20.0) 9.7 Vol % (12.0-20.0) Arterial Blood Carboxyhemoglobin 1.7 % (0-4) 2.7 % (0-4) Arterial Blood Methemoglobin 1.2 % (0-2) 1.2 % (0-2) Blood Gas Hemoglobin 5.4 G/DL (12.0-16.0) 6.8 G/DL (12.0-16.0) Blood Gas Ventilator Setting PRCV/16/550/1.0/+5 SEE COMMENT Blood Gas Inspired Oxygen 50 % 40 % Imaging Chest x-ray showed no acute findings Objective Remarks GENERAL: Well-developed well-nourished pale and jaundiced, critically ill SKIN: Warm/dry. HEAD: Atraumatic. Normocephalic. EYES: Pupils equal and round. Positive icterus, positive pallor ENT: Orotracheally intubated. Mucous membranes dry NECK: Trachea midline. No JVD. CARDIOVASCULAR: Tachycardic rate and rhythm. No murmur appreciated. Currently on 4 mcg/min of Levophed RESPIRATORY: PRVC. Clear to auscultation. Breath sounds equal bilaterally. GASTROINTESTINAL: Abdomen soft, non-tender, nondistended. Stretch griggs noted MUSCULOSKELETAL: Extremities are poorly perfused NEUROLOGICAL: Intubated sedated, wakes up easily follows some commands, Moving all extremities. Nonfocal exam A/P Assessment and Plan NEURO: Hepatic encephalopathy -Intubated for airway protection and to facilitate procedures -Propofol for sedation and ventilator synchrony -Supplement thiamine -No lactulose until cleared by GI -Check Ammonia level RESP: Acute respiratory failure -Intubated and placed on mechanical ventilation -DuoNeb every 6 hours as needed -Ventilator bundle, head of bed elevation to 30 -Sputum culture -Start SBT in next 24 hours if remains stable CV: Hemorrhagic shock Lactic acidosis, severe -Normal saline IV fluids, 500 ml additional bolus -Maintenance fluid bicarb infusion at 150 mL/h-DC and start NS at 100 ml per hour -Levophed to keep map above 65, currently on 4 mcg/min -Trend lactic acid, with aggressive resuscitation down from24.3 to 3. GI/HEME: GI bleed Angiodysplasia of the second part of duodenum Liver cirrhosis Probable right hepatic mass Severe anemia requiring transfusion Coagulopathy -Continue Protonix and octreotide infusions -Emergent EGD by Dr. Roche showed angiodysplasia of the second part of duodenum, status post cauterization with complete hemostasis -Colonoscopy planned for today -Transfused a total of 6 units PRBC, 2 FFP, 1 platelet -Trend H&H, INR -CT abdomen pelvis showed liver cirrhosis minimal ascites, and possible mass of the right hepatic lobe -Check AFP, CEA, CA 125 and CA-19-9 : Acute kidney injury/prerenal Possible hepatorenal syndrome -Secondary to severe dehydration and ATN -Continue IV fluid resuscitation as above -Ward catheter. -Hepatorenal syndrome cannot be ruled out at this time -Creatinine improving with aggressive resuscitation ID: Leukocytosis Probable sepsis -IV vancomycin. Azactam, Flagyl -F/u sputum culture, blood culture, urine culture -SBP prophylaxis provided by above antibiotics ENDO: -Electrolyte replacement per protocol PROPH: -Bilateral lower extremity SCDs. Chemical DVT prophylaxis is contraindicated, continue IV Protonix LINES: -Right IJ central line placed in the ER, right femoral arterial line placed in ICU 11/12/17 CC time 40 min excluding procedures Patient remains critically ill, with hemorrhagic shock lactic acidosis. With aggressive resuscitation with blood products and fluid showing some signs of clinical improvement and improvement in perfusion. Patient's mother was updated at the bedside Karsten Boudreaux MD Nov 13, 2017 06:34
[2017-11-13 06:37] LABS: TOTAL BILIRUBIN ADULT 12.2 MG/DL (0.2-1.0)
[2017-11-13] MEDS ORDERED: MAGNESIUM SULFATE INJ 2 GM in SODIUM CHLORIDE 0.9% INJ 96 ML IV PRN (06:45)
[2017-11-13] MEDS ORDERED: POTASSIUM PHOSPHATE INJ 30 MMOL in SODIUM CHLOR 0.9% 250 ML INJ 250 ML IV PRN (06:45)
[2017-11-13] MEDS ORDERED: MAGNESIUM OXIDE 400 MG TAB PO PRN (06:45)
[2017-11-13] MEDS ORDERED: SODIUM PHOSPHATE INJ 30 MMOL in SODIUM CHLOR 0.9% 250 ML INJ 240 ML IV PRN (06:45)
[2017-11-13] MEDS ORDERED: POTASSIUM PHOSPHATE MONOBASIC 500 MG TAB PO/TUBE PRN (06:45)
[2017-11-13] MEDS ORDERED: MAGNESIUM SULFATE INJ 4 GM in SODIUM CHLORIDE 0.9% INJ 92 ML IV PRN (06:45)
[2017-11-13] MEDS ORDERED: POTASSIUM PHOSPHATE MONOBASIC 500 MG TAB PO PRN (06:45)
[2017-11-13] MEDS ORDERED: POTASSIUM CHLOR 20 MEQ PREMIX 100 ML IV PRN ×2 (06:45)
[2017-11-13] MEDS ORDERED: POTASSIUM CHLOR 40 MEQ PREMIX 100 ML IV ONE (06:45)
[2017-11-13] MEDS ORDERED: POTASSIUM CHLOR 40 MEQ PREMIX 100 ML IV PRN (06:45)
[2017-11-13] MEDS ORDERED: POTASSIUM CHLORIDE 25 MEQ EFFERVESCENT TAB PO PRN (06:45)
[2017-11-13] MEDS: SODIUM CHLOR 0.9% 1000 ML INJ 1,000 ML IV SCH ×2 (07:00→16:02)
[2017-11-13] MEDS: AZTREONAM INJ 2,000 MG in SODIUM CHLORIDE 0.9% INJ 100 ML IV SCH ×3 (07:13→23:13)
[2017-11-13 07:26] LABS: MAGNESIUM 2.3 MG/DL (1.5-2.5)
[2017-11-13 07:36] LABS: PHOSPHORUS 1.1 MG/DL (2.5-4.9)
[2017-11-13] MEDS ORDERED: CALCIUM CHLORIDE 10% SOLN 1 GRAM/10 ML SYR ONE (07:37)
[2017-11-13 07:53] LABS: CARCINOEMBRYONIC ANTIGEN 4.3 NG/ML (0.2-5.0)
[2017-11-13] MEDS ORDERED: CALCIUM CHLORIDE INJ 2 GM in SODIUM CHLORIDE 0.9% INJ 100 ML IV ONE (08:00)
[2017-11-13] MEDS: THIAMINE INJ 100 MG in SODIUM CHLORIDE 0.9% INJ 100 ML IV SCH (08:21)
[2017-11-13] MEDS: ALBUMIN 25% INJ 100 ML IV SCH ×2 (08:21→20:06)
[2017-11-13] MEDS: CHLORHEXIDINE 0.12% (ORAL KIT) 15 ML CUP MT SCH ×2 (08:22→20:06)
[2017-11-13 08:29] LABS: CA 125 65.5 U/ML (0.0-30.2)
[2017-11-13 08:30] LABS: CA 19-9 13.5 U/ML (0.0-35.0)
[2017-11-13] MEDS ORDERED: ROCURONIUM INJ 50 MG/5 ML VIAL ONE (10:00)
--- NOTE | 2017-11-13 10:42 | PD.PROCEDR ---
GI Procedure PROCEDURE PERFORMED colonoscopy with snare polypectomy INDICATION FOR PROCEDURE anemia , cirrhosis PROCEDURE: The procedure, risks and benefits were discussed with Ms. Pratt and informed consent was obtained. Anesthesia sedated her with Diprivan. She was placed in the left lateral decubitus position. The Pentax videoscope was introduced through the rectum and advanced to the sigmoid. Retroflexion was performed in the rectum. Colonic prep was [] Colonoscopy: The Pentax videoscope was introduced through the rectum and advanced to cecum which was identified by the ileocecal valve. Retroflexion was performed in the rectum. Colonic prep was fair with significant amount of stool may interfere with the vision of small lesions ESTIMATED BLOOD LOSS: None SPECIMENS REMOVED: 2 polyps COMPLICATIONS: None IMPRESSION: Black stool spread throughout the colon and small pockets may interfere with the vision of small lesions 1 cm polyp in the ascending colon removed by snare 1 cm polyp in the sigmoid removed by snare No sign of active bleeding Bleeding could be from AVM from the small bowel PLAN: Await biopsy Monitor H&H with packed RBC as needed Colonoscopy in 6 month Capsule endoscopy as an outpatient Patient has most likely cirrhosis with liver mass Workup for the liver mass as far as tumor markers Orville Gregg MD Nov 13, 2017 10:42
--- NOTE | 2017-11-13 10:47 | HHI.GIFU ---
Subjective Remarks Patient is laying in bed, intubated, sedated, no sign of active bleeding at this time Objective Vitals I&O Vital Signs Date Time Temp Pulse Resp B/P (MAP) Pulse Ox O2 Delivery O2 Flow Rate FiO2 11/13/17 10:00 78 11/13/17 08:08 100 40 11/13/17 08:00 40 11/13/17 08:00 69 11/13/17 08:00 99.0 74 16 122/46 (71) 100 11/13/17 06:00 78 11/13/17 05:42 80 100/40 11/13/17 04:00 99.2 85 20 105/42 (63) 100 11/13/17 04:00 85 11/13/17 04:00 40 11/13/17 03:48 100 40 11/13/17 02:41 88 107/48 11/13/17 02:00 90 11/13/17 01:55 92 112/68 11/13/17 01:06 91 104/46 11/13/17 00:09 100 40 11/13/17 00:00 96 11/13/17 00:00 98.5 96 23 106/50 (68) 100 11/13/17 00:00 40 11/12/17 23:38 88 106/43 11/12/17 22:00 88 11/12/17 21:14 97.9 96 28 134/85 100 11/12/17 20:00 97.9 95 21 126/59 (81) 100 Automatic Cuff 11/12/17 20:00 95 11/12/17 20:00 40 11/12/17 19:32 100 40 11/12/17 18:19 50 11/12/17 18:00 88 11/12/17 16:00 100 11/12/17 16:00 94.2 100 20 110/54 (72) 100 11/12/17 16:00 100 Mechanical Ventilator 50 11/12/17 16:00 96 110/54 11/12/17 15:25 84 16 94/38 (56) 97 11/12/17 14:36 97.5 82 16 84/33 97 11/12/17 14:10 100 Nasal Cannula 3.00 11/12/17 13:00 84 16 100/45 (63) 98 11/12/17 11:25 97.5 90 18 111/54 (73) 100 I/O 11/12/17 11/12/17 11/12/17 11/13/17 11/13/17 11/13/17 07:00 15:00 23:00 07:00 15:00 23:00 Intake Total 5363 ml 7700 ml 921 ml Output Total 1000 ml 4100 ml Balance 4363 ml 3600 ml 921 ml Intake IV Total 2425 ml 3100 ml 921 ml Packed Cells 1600 ml 400 ml FFP 523 ml Platelets 290 ml Blood Product IV Normal Saline Flush 25 ml 200 ml Tube Irrigant 4000 ml Other 500 ml Output Urine Total 1000 ml 1000 ml Stool Total 2500 ml Gastric Drainage Total 600 ml # Bowel Movements 1 Laboratory Laboratory Tests Test 11/12/17 12:30 11/12/17 13:50 11/12/17 14:27 11/12/17 16:19 White Blood Count 21.3 Red Blood Count 0.99 Hemoglobin 3.4 Hematocrit 10.5 Mean Corpuscular Volume 105.8 Mean Corpuscular Hemoglobin 34.0 Mean Corpuscular Hemoglobin Concent 32.1 Red Cell Distribution Width 19.0 Platelet Count 327 Mean Platelet Volume 8.9 Neutrophils (%) (Auto) 83.6 Lymphocytes (%) (Auto) 8.6 Monocytes (%) (Auto) 4.5 Eosinophils (%) (Auto) 1.8 Basophils (%) (Auto) 1.5 Neutrophils # (Auto) 17.8 Lymphocytes # (Auto) 1.8 Monocytes # (Auto) 1.0 Eosinophils # (Auto) 0.4 Basophils # (Auto) 0.3 CBC Comment AUTO DIFF Differential Comment AUTO DIFF CONFIRMED Prothrombin Time 19.2 Prothromb Time International Ratio 1.9 Activated Partial Thromboplast Time 23.4 Blood Urea Nitrogen 80 Creatinine 1.90 Random Glucose 51 Total Protein 4.4 Albumin 1.9 Calcium Level 7.3 Alkaline Phosphatase 139 Aspartate Amino Transf (AST/SGOT) 446 Alanine Aminotransferase (ALT/SGPT) 179 Total Bilirubin 3.7 Sodium Level 125 Potassium Level 4.5 Chloride Level 83 Carbon Dioxide Level 9.8 Anion Gap 32 Estimat Glomerular Filtration Rate 29 Protein Corrected Calcium 8.8 Ammonia 46 Thyroid Stimulating Hormone 3rd Gen 1.350 Lactic Acid Level 24.3 Blood Gas Puncture Site RT RADIAL Blood Gas Patient Temperature 37.0 Venous Blood pH 7.21 Venous Blood Partial Pressure CO2 21 Venous Blood Partial Pressure O2 29 Venous Blood HCO3 8 Venous Blood Oxygen Saturation 31 Venous Blood Oxygen Content 1.6 Venous Blood Base Excess -18.3 Oxygen Delivery Device NASAL CANNULA Blood Gas Liter Flow 3 Urine Color YELLOW Urine Turbidity CLEAR Urine pH 5.0 Urine Specific [place] 1.013 Urine Protein NEG Urine Glucose (UA) NEG Urine Ketones TRACE Urine Occult Blood NEG Urine Nitrite NEG Urine Bilirubin NEG Urine Urobilinogen LESS THAN 2.0 Urine Leukocyte Esterase NEG Urine RBC LESS THAN 1 Urine WBC LESS THAN 1 Urine Mucus FEW Microscopic Urinalysis Comment CULT NOT INDICATED Test 11/12/17 16:30 11/12/17 16:38 11/12/17 18:50 11/12/17 20:18 Nasal Screen MRSA (PCR) MRSA NOT DETECTED Blood Gas Puncture Site ART LINE MARIA ALEJANDRA Blood Gas Patient Temperature 98.6 98.6 Blood Gas HCO3 9 21 Blood Gas Base Excess -18.6 -1.8 Blood Gas Oxygen Saturation 97 97 Arterial Blood pH 7.14 7.47 Arterial Blood Partial Pressure CO2 26 30 Arterial Blood Partial Pressure O2 263 196 Arterial Blood Oxygen Content 8.1 9.7 Arterial Blood Carboxyhemoglobin 1.7 2.7 Arterial Blood Methemoglobin 1.2 1.2 Blood Gas Hemoglobin 5.4 6.8 Oxygen Delivery Device VENTILATOR VENTILATOR Blood Gas Ventilator Setting PRCV/16/550/1.0/+5 SEE COMMENT Blood Gas Inspired Oxygen 50 40 Hemoglobin 6.8 Blood Urea Nitrogen 65 Creatinine 1.51 Random Glucose 193 Total Protein 4.6 Albumin 2.1 Calcium Level 7.3 Alkaline Phosphatase 120 Aspartate Amino Transf (AST/SGOT) 626 Alanine Aminotransferase (ALT/SGPT) 226 Total Bilirubin 5.5 Sodium Level 130 Potassium Level 3.6 Chloride Level 88 Carbon Dioxide Level 19.1 Anion Gap 23 Estimat Glomerular Filtration Rate 38 Lactic Acid Level 13.8 Protein Corrected Calcium 8.7 Lipase 1097 Ethyl Alcohol Level LESS THAN 3 Test 11/12/17 23:41 11/13/17 00:55 11/13/17 05:09 11/13/17 06:49 White Blood Count 15.9 14.4 Red Blood Count 2.72 2.78 Hemoglobin 8.6 8.8 Hematocrit 24.5 24.5 Mean Corpuscular Volume 90.0 88.1 Mean Corpuscular Hemoglobin 31.7 31.5 Mean Corpuscular Hemoglobin Concent 35.3 35.8 Red Cell Distribution Width 16.0 16.3 Platelet Count 171 158 Mean Platelet Volume 7.9 7.4 Neutrophils (%) (Auto) 83.8 77.6 Lymphocytes (%) (Auto) 6.5 11.8 Monocytes (%) (Auto) 8.8 9.4 Eosinophils (%) (Auto) 0.5 0.9 Basophils (%) (Auto) 0.4 0.3 Neutrophils # (Auto) 13.3 11.2 Lymphocytes # (Auto) 1.0 1.7 Monocytes # (Auto) 1.4 1.4 Eosinophils # (Auto) 0.1 0.1 Basophils # (Auto) 0.1 0.0 CBC Comment DIFF FINAL DIFF FINAL Differential Comment Prothrombin Time 16.7 17.3 Prothromb Time International Ratio 1.7 1.7 Activated Partial Thromboplast Time 28.4 28.8 Fibrinogen 135 Lactic Acid Level 4.8 3.0 Blood Urea Nitrogen 51 Creatinine 1.20 Random Glucose 87 Total Protein 4.3 Albumin 2.0 Calcium Level 6.7 Magnesium Level 2.5 2.3 Alkaline Phosphatase 121 Aspartate Amino Transf (AST/SGOT) 1034 Alanine Aminotransferase (ALT/SGPT) 354 Total Bilirubin 12.2 Sodium Level 136 Potassium Level 2.9 Chloride Level 93 Carbon Dioxide Level 33.0 Anion Gap 10 Estimat Glomerular Filtration Rate 49 Protein Corrected Calcium 8.2 Phosphorus Level 1.1 Tumor Marker Alpha Fetoprotein 2.5 Carcinoembryonic Antigen 4.3 CA 19-9 Antigen 13.5 CA 125 Antigen 65.5 Test 11/13/17 07:05 Ammonia 70 Date/Time Source Procedure Growth Status 11/12/17 21:16 Blood Peripheral Aerobic Blood Culture Pending Received 11/12/17 21:16 Blood Peripheral Anaerobic Blood Culture Pending Received 11/12/17 16:19 Urine Catheterized Urine Urine Culture Pending Received Physical Exam HEENT: Pupils round and reactive to light; normocephalic; atraumatic; positive jaundice. Throat is clear. Sclerae icteric NECK: Neck is supple, no JVD, no lymphadenopathy. CHEST: Chest is clear to auscultation and percussion. CARDIAC: Regular rate and rhythm with no murmur gallop or rubs. ABDOMEN: Soft, mildly, nontender; no hepatosplenomegaly; bowel sounds are present in all four quadrants. Small umbilical hernia EXTREMITIES: No clubbing, cyanosis, or edema. SKIN: Normal; no rash; jaundice. ASSOCIATE MEDIA DIRECTOR: Intubated sedated Assessment and Plan Plan 11/13/2017 42-year-old lady with significant anemia questionable etiology upper endoscopy showed AVM, hemoglobin stable now, had a colonoscopy done today Patient also has cirrhosis most likely secondary to alcohol, severe elevation of the liver function tests including total bilirubin patient also has a possible mass in the liver and today her CA 125 came back elevated IMPRESSION: Black stool spread throughout the colon and small pockets may interfere with the vision of small lesions 1 cm polyp in the ascending colon removed by snare 1 cm polyp in the sigmoid removed by snare No sign of active bleeding Bleeding could be from AVM from the small bowel Possible Liver mass with cirrhosis, tumor markers negative except CA 125 PLAN: Await biopsy Monitor H&H with packed RBC as needed Colonoscopy in 6 month Capsule endoscopy as an outpatient Patient has most likely cirrhosis with liver mass Workup for the liver mass, we will plan on doing an MRI Discussed with Orville Iniguez MD Nov 13, 2017 10:47
[2017-11-13] MEDS ORDERED: ROCURONIUM INJ 50 MG/5 ML VIAL IV PUSH ONE (11:00)
[2017-11-13] MEDS: fentaNYL DRIP 250 ML IV PRN ×2 (11:10→21:41)
[2017-11-13] MEDS: NOREPINEPHRINE INJ 4 MG in SODIUM CHLOR 0.9% 250 ML INJ 246 ML IV PRN ×2 (11:11→21:50)
[2017-11-13] MEDS: POTASSIUM CHLOR 40 MEQ PREMIX 100 ML IV PRN ×2 (11:11→13:11)
[2017-11-13 13:45] LABS: ALBUMIN 2.2 GM/DL (3.4-5.0); ALT (GPT) 406 U/L (10-53); BICARBONATE 32.3 MEQ/L (21.0-32.0); BLOOD UREA NITROGEN 39 MG/DL (7-18); CALCIUM 7.7 MG/DL (8.5-10.1); CHLORIDE 99 MEQ/L (98-107); CREATININE 0.97 MG/DL (0.50-1.00); GLOMERULAR FILTRATION RATE 63 ML/MIN (>89); GLUCOSE,RANDOM 85 MG/DL (74-106); SODIUM (NA) 137 MEQ/L (136-145)
[2017-11-13] MEDS ORDERED: SODIUM CHLOR 0.9% 1000 ML INJ 1,000 ML IV ONE (13:45)
[2017-11-13 13:55] LABS: ALKALINE PHOSPHATASE 116 U/L (45-117); AST (GOT) 1128 U/L (15-37); TOTAL BILIRUBIN ADULT 10.9 MG/DL (0.2-1.0); TOTAL PROTEIN 4.3 GM/DL (6.4-8.2)
[2017-11-13 14:11] LABS: AUTOMATED NEUTROPHIL # 10.6 TH/MM3 (1.8-7.7); BASOPHIL # 0.1 TH/MM3 (0-0.2); BASOPHIL % 0.6 % (0.0-2.0); EOSINOPHIL # 0.3 TH/MM3 (0-0.4); EOSINOPHIL % 2.1 % (0.0-4.0); HEMATOCRIT 23.6 % (35.0-46.0); HEMOGLOBIN 8.4 GM/DL (11.6-15.3); LYMPH % 9.7 % (9.0-44.0); LYMPHOCYTE # 1.3 TH/MM3 (1.0-4.8); MEAN CELL VOLUME 88.6 FL (80.0-100.0); MEAN CORPUSCULAR HEMOGLOBIN 31.6 PG (27.0-34.0); MEAN CORPUSCULAR HGB CONC 35.6 % (32.0-36.0); MEAN PLATELET VOLUME 7.2 FL (7.0-11.0); MONOCYTE # 0.9 TH/MM3 (0-0.9); NEUT % 80.6 % (16.0-70.0); PLATELET COUNT 155 TH/MM3 (150-450); RED BLOOD COUNT 2.66 MIL/MM3 (4.00-5.30); RED CELL DISTRIBUTION WIDTH 16.1 % (11.6-17.2); WHITE BLOOD COUNT 13.1 TH/MM3 (4.0-11.0)
[2017-11-13 14:51] LABS: BANDS 27 % (0-6); CORRECTED NUCLEATED RBC 3 /100 WBC (0-0); METAMYELOCYTES 1 % (0-1); MONOCYTES 2 % (0-8); NEUTROPHIL # MANUAL DIFF 12.3 TH/MM3 (1.8-7.7); NUCLEATED RED BLOOD CELL 3 (0-0); POLYS (SEG NEUTROPHILS) 66 % (16-70); TOXIC GRANULATION 1+ (NORMAL)
--- NOTE | 2017-11-13 15:18 | EKG ---
Date Performed: 11/12/2017 Time Performed: 14:58:48 PTAGE: 42 years EKG: Sinus rhythm NORMAL ECG NO PREVIOUS TRACING DOCTOR: Zoraida Montgomery Interpretating Date/Time 11/13/2017 15:12:17
[2017-11-14] VITALS (20 sets, daily range): BP systolic 105–120; BP diastolic 50–64; PULSE 57–81; RESP 16–22; TEMP 97.6–98.6; O2SAT 97–100
[2017-11-14] MEDS: PROPOFOL 1000 MG/100 ML INJ 100 ML IV PRN ×3 (01:40→14:30)
[2017-11-14] MEDS: SODIUM CHLOR 0.9% 1000 ML INJ 1,000 ML IV SCH ×3 (03:43→23:00)
[2017-11-14] MEDS: CHLORHEXIDINE GLUCONATE 2 % 1 PACK (2 CLOTHS) TOP SCH (03:43)
[2017-11-14] MEDS: METRONIDAZOLE 500 MG/100 ML ISONTONIC SOLN IV SCH ×3 (03:48→20:50)
[2017-11-14] MEDS: NOREPINEPHRINE INJ 4 MG in SODIUM CHLOR 0.9% 250 ML INJ 246 ML IV PRN ×2 (05:07→16:52)
[2017-11-14 05:34] LABS: BASOPHIL % 0.5 % (0.0-2.0); EOSINOPHIL # 0.5 TH/MM3 (0-0.4); EOSINOPHIL % 4.6 % (0.0-4.0); HEMATOCRIT 24.3 % (35.0-46.0); HEMOGLOBIN 8.6 GM/DL (11.6-15.3); LYMPH % 8.7 % (9.0-44.0); LYMPHOCYTE # 0.9 TH/MM3 (1.0-4.8); MEAN CELL VOLUME 89.9 FL (80.0-100.0); MEAN CORPUSCULAR HEMOGLOBIN 31.7 PG (27.0-34.0); MEAN CORPUSCULAR HGB CONC 35.2 % (32.0-36.0); MEAN PLATELET VOLUME 7.3 FL (7.0-11.0); MONO % 7.7 % (0.0-8.0); MONOCYTE # 0.8 TH/MM3 (0-0.9); NEUT % 78.5 % (16.0-70.0); PLATELET COUNT 135 TH/MM3 (150-450); RED BLOOD COUNT 2.71 MIL/MM3 (4.00-5.30); RED CELL DISTRIBUTION WIDTH 17.3 % (11.6-17.2); WHITE BLOOD COUNT 10.2 TH/MM3 (4.0-11.0)
[2017-11-14 05:37] LABS: PROTHROMBIN TIME - PATIENT 20.2 SEC (9.8-11.6)
[2017-11-14 05:51] LABS: MAGNESIUM 2.1 MG/DL (1.5-2.5)
--- NOTE | 2017-11-14 06:09 | RADRPT ---
EXAM DATE/TIME: 11/14/2017 05:11 [facility] COMPARISON: CHEST SINGLE AP, November 12, 2017, 16:56. INDICATIONS : Respiratory distress. MEDICAL HISTORY : Cirrhosis. SURGICAL HISTORY : Hysterectomy. ENCOUNTER: Subsequent ACUITY: 3 days PAIN SCORE: Non-responsive. LOCATION: Bilateral chest FINDINGS: A single view of the chest demonstrates slight interstitial prominence. Endotracheal tube and right j ugular central line in stable position. Nasogastric tube tip in stomach. Small left pleural effusion and minimal left basal atelectasis. Osseous structures are intact. CONCLUSION: Small left pleural effusion and interstitial edema. Corky Noyola MD on November 14, 2017 at 6:06 Board Certified Radiologist. This report was verified electronically.
[2017-11-14] MEDS: OCTREOTIDE INJ 500 MCG in SODIUM CHLORID 0.9% 500 ML INJ 499.5 ML IV SCH ×2 (06:12→16:52)
[2017-11-14] MEDS: AZTREONAM INJ 2,000 MG in SODIUM CHLORIDE 0.9% INJ 100 ML IV SCH ×2 (06:59→16:52)
[2017-11-14] MEDS: PANTOPRAZOLE INJ 80 MG in SODIUM CHLORIDE 0.9% INJ 100 ML IV SCH ×2 (07:00→17:06)
[2017-11-14] MEDS: ALBUMIN 25% INJ 100 ML IV SCH ×2 (07:00→17:07)
[2017-11-14] MEDS: fentaNYL DRIP 250 ML IV PRN (07:08)
--- NOTE | 2017-11-14 07:26 | HHI.CCPN ---
Subjective Remarks/Hospital Course Patient is a 42-year-old female with past medical history significant for alcohol dependence and cirrhosis who presented to the [place] emergency department for dark starry stools and coffee-ground vomiting starting last night. Patient had been very weak and had sustained a fall at home according to the history. In the ER she was very pale jaundiced. Had one episode of large amount of coffee-ground vomiting in the ED. hemoglobin came back at 3.4. Sodium was 125, bicarb was only 10, anion gap 32, BUN 80 with creatinine of 1.9. Patient received 1 unit of normal saline bolus. Right IJ central line was placed and blood transfusion and FFP was ordered for INR of 1.9. Patient's blood pressure started to trend down, and emergency release blood was ordered after 1 unit of blood transfusion, blood pressure started to stabilized. Patient received in addition to 1 unit PRBC, IV thiamine, Zofran, octreotide bolus, Protonix 80 mg IV bolus, and calcium. I was contacted by the ED physician and after discussion with Dr. Wiseman decision was made to emergently transfer patient to [facility] hospital for emergent EGD and other interventions if needed. I placed patient on bicarb infusion, Protonix infusion and octreotide infusion. I evaluated the patient immediately after arrival to the main ICU. Patient remains alert awake but confused. Her lactic acid came back at 25, additional fluid bolus was ordered. Currently receiving blood and blood product transfusion. Patient was intubated for airway protection and also to facilitate EGD. After intubation I also placed a right femoral central line. After EGD patient will need a CT of the abdomen pelvis with IV and oral contrast to rule out ischemic bowel as the lactic acid is severely elevated. Empiric antibiotics with IV vancomycin, IV Azactam, IV Flagyl. Discussed the patient multiple times with Dr. Roche and Dr. Wiseman 11/13: Remains critical but some improvement in perfusion. Received 6 units of PRBC to FFP and 1 unit of platelets overnight. Urine output approximately 1 L in the last 12 hours. Hemoglobin 8.8 today, INR 1.7. Lactate 24.3 to 3 today. ABG shows resolution of metabolic acidosis. Will discontinue bicarbonate infusion reduce PRVC rate to 16. EGD yesterday showed mild gastritis in the gastric antrum, with some coffee-ground material. Angiodysplastic lesion with bleeding was found in the 2nd part of the duodenum; cauterized with complete hemostasis. CT abdomen pelvis showed no signs of bowel ischemia, probable mass right lobe of liver 11/14: Patient remains intubated sedated, critically ill but stabilizing. Still requiring 7 mcg/min of Levophed. Continued NG tube coffee-ground output. INR is 2 will transfuse 1 unit of FFP, and 10 mg vitamin K IV. Start lactulose if okay with GI, check MRI of the abdomen rule out hepatoma. Updated mother at the bedside. Objective Vital Signs Date Time Temp Pulse Resp B/P (MAP) Pulse Ox O2 Delivery O2 Flow Rate FiO2 11/14/17 06:00 62 11/14/17 06:00 30 11/14/17 05:07 112/50 11/14/17 04:07 100 11/14/17 04:00 98.6 16 11/12/17 16:00 Mechanical Ventilator 11/12/17 14:10 3.00 Intake and Output 11/14/17 11/14/17 11/15/17 08:00 16:00 00:00 Intake Total 1350 ml Output Total 1000 ml Balance 350 ml Result Diagram: 11/14/17 0455 11/13/17 1309 Imaging Chest x-ray showed no acute findings Objective Remarks GENERAL: Well-developed well-nourished pale and jaundiced, critically ill SKIN: Warm/dry. HEAD: Atraumatic. Normocephalic. EYES: Pupils equal and round. Positive icterus, positive pallor ENT: Orotracheally intubated. Mucous membranes dry NECK: Trachea midline. No JVD. CARDIOVASCULAR: Tachycardic rate and rhythm. No murmur appreciated. Currently on 7 mcg/min of Levophed RESPIRATORY: PRVC. Clear to auscultation. Breath sounds equal bilaterally, diminished at the bedside. GASTROINTESTINAL: Abdomen soft, non-tender, nondistended. Stretch griggs noted MUSCULOSKELETAL: Extremities are poorly perfused NEUROLOGICAL: Intubated sedated, wakes up on sedation hold follows commands, Moving all extremities. Nonfocal exam A/P Assessment and Plan NEURO: Hepatic encephalopathy -Intubated for airway protection and to facilitate procedures -Propofol, fentanyl for sedation and ventilator synchrony -Start daily sedation location -Supplement thiamine -Start lactulose if okay with GI -Check Ammonia level in a.m., previous ammonia level was 70 yesterday RESP: Acute respiratory failure -Intubated and placed on mechanical ventilation on admission 11/12/17 -DuoNeb every 6 hours as needed -Ventilator bundle, head of bed elevation to 30 -Sputum culture negative today -Start SBT if no further endoscopy planned CV: Hemorrhagic shock-improving Lactic acidosis, severe-resolving -Normal saline IV fluids, 100 ml per hour -Levophed to keep map above 65, currently on 7 mcg/min -Lactic acid, with aggressive resuscitation down from24.3 to 3. GI/HEME: GI bleed Angiodysplasia of the second part of duodenum Liver cirrhosis Probable right hepatic mass Severe anemia requiring transfusion Coagulopathy -Continue Protonix and octreotide infusions -Emergent EGD by Dr. Roche 11/12 showed angiodysplasia of the second part of duodenum, status post cauterization with complete hemostasis -Colonoscopy by Dr. Figueroa in 11/13/2017: Black stool throughout the colon. 2 colon polyps removed -Bleeding most likely from small bowel AVMs, capsule endoscopy recommended as outpatient -Patient continues to have coffee-ground OG tube output-we will inform GI -Continue IV Protonix infusion, IV octreotide -s/p 6 units PRBC, 2 FFP, 1 platelet. -Continue correction of coagulopathy 1 unit of FFP and 10 mg vitamin K today -Trend H&H, INR -MRI of the liver to rule out hepatoma -CA 125 elevated at 60, may be nonspecific. Will need outpatient follow-up : Acute kidney injury/prerenal Possible hepatorenal syndrome -Secondary to severe dehydration and ATN -Continue IV fluid resuscitation as above. Ward catheter. -Hepatorenal syndrome cannot be ruled out at this time -Creatinine improving with aggressive resuscitation ID: Leukocytosis Probable sepsis -IV vancomycin. Azactam, Flagyl -F/u sputum culture, blood culture, urine culture -SBP prophylaxis provided by above antibiotics ENDO: -Electrolyte replacement per protocol PROPH: -Bilateral lower extremity SCDs. Chemical DVT prophylaxis is contraindicated, continue IV Protonix LINES: -Right IJ central line placed in the ER, right femoral arterial line placed in ICU 11/12/17 CC time 40 min excluding procedures Patient remains critically ill, with hemorrhagic shock lactic acidosis. With aggressive resuscitation with blood products and fluid showing some signs of clinical improvement and improvement in perfusion. Patient's mother was updated at the bedside. Ongoing coffee-ground NG tube output. Will discuss with GI correct coagulopathy Karsten Boudreaux MD Nov 14, 2017 07:26
[2017-11-14] MEDS ORDERED: PHYTONADIONE INJ 10 MG in SODIUM CHLORIDE 0.9% INJ 50 ML IV ONE (07:30)
[2017-11-14] MEDS: CHLORHEXIDINE 0.12% (ORAL KIT) 15 ML CUP MT SCH ×2 (07:47→20:00)
[2017-11-14] MEDS: THIAMINE INJ 100 MG in SODIUM CHLORIDE 0.9% INJ 100 ML IV SCH (09:18)
--- NOTE | 2017-11-14 10:20 | HHI.GIFU ---
Subjective Remarks Pt resting in bed, family at bedside. Still with maroon and coffee ground appearing OGT output, but seems to be lessening. (Tiffany Washington) Objective Vitals I&O Vital Signs Date Time Temp Pulse Resp B/P (MAP) Pulse Ox O2 Delivery O2 Flow Rate FiO2 11/14/17 08:10 99 30 11/14/17 06:00 62 11/14/17 06:00 30 11/14/17 05:07 59 112/50 11/14/17 04:07 100 30 11/14/17 04:00 62 11/14/17 04:00 98.6 61 16 112/52 (72) 100 11/14/17 02:00 62 11/14/17 01:06 100 30 11/14/17 00:00 30 11/14/17 00:00 66 11/14/17 00:00 98.4 66 16 113/50 (71) 100 11/13/17 22:00 65 11/13/17 21:50 68 112/49 11/13/17 20:00 97.9 60 16 121/53 (75) 100 11/13/17 20:00 60 11/13/17 20:00 30 11/13/17 19:26 100 30 11/13/17 18:00 62 11/13/17 16:00 64 11/13/17 16:00 40 11/13/17 16:00 97.9 65 16 107/50 (69) 100 11/13/17 14:38 100 30 11/13/17 14:00 66 11/13/17 12:00 61 11/13/17 12:00 98.9 61 16 113/55 (74) 100 11/13/17 12:00 40 11/13/17 11:35 100 30 11/13/17 11:11 73 134/55 I/O 11/13/17 11/13/17 11/13/17 11/14/17 11/14/17 11/14/17 07:00 15:00 23:00 07:00 15:00 23:00 Intake Total 7700 ml 3071 ml 2600 ml 2150 ml Output Total 4100 ml 1600 ml 1000 ml Balance 3600 ml 3071 ml 1000 ml 1150 ml Intake IV Total 3100 ml 3021 ml 2600 ml 2150 ml Packed Cells 400 ml Blood Product IV Normal Saline Flush 200 ml Tube Irrigant 4000 ml Other 50 ml Output Urine Total 1000 ml 1450 ml 750 ml Stool Total 2500 ml 100 ml 0 ml Gastric Drainage Total 600 ml 50 ml 250 ml # Bowel Movements 1 Laboratory Laboratory Tests Test 11/13/17 11:56 11/13/17 13:09 11/13/17 17:50 11/14/17 01:15 White Blood Count 13.1 Red Blood Count 2.66 Hemoglobin 8.4 8.5 8.3 Hematocrit 23.6 Mean Corpuscular Volume 88.6 Mean Corpuscular Hemoglobin 31.6 Mean Corpuscular Hemoglobin Concent 35.6 Red Cell Distribution Width 16.1 Platelet Count 155 Mean Platelet Volume 7.2 Neutrophils (%) (Auto) 80.6 Lymphocytes (%) (Auto) 9.7 Monocytes (%) (Auto) 7.0 Eosinophils (%) (Auto) 2.1 Basophils (%) (Auto) 0.6 Neutrophils # (Auto) 10.6 Lymphocytes # (Auto) 1.3 Monocytes # (Auto) 0.9 Eosinophils # (Auto) 0.3 Basophils # (Auto) 0.1 CBC Comment AUTO DIFF Differential Total Cells Counted 100 Neutrophils % (Manual) 66 Band Neutrophils % 27 Monocytes % 2 Eosinophils % 4 Neutrophils # (Manual) 12.3 Metamyelocytes 1 Nucleated Red Blood Cells 3 Differential Comment FINAL DIFF MANUAL Toxic Granulation 1+ Platelet Estimate NORMAL Platelet Morphology Comment NORMAL Blood Urea Nitrogen 39 Creatinine 0.97 Random Glucose 85 Total Protein 4.3 Albumin 2.2 Calcium Level 7.7 Alkaline Phosphatase 116 Aspartate Amino Transf (AST/SGOT) 1128 Alanine Aminotransferase (ALT/SGPT) 406 Total Bilirubin 10.9 Sodium Level 137 Potassium Level 3.7 Chloride Level 99 Carbon Dioxide Level 32.3 Anion Gap 6 Estimat Glomerular Filtration Rate 63 Test 11/14/17 04:55 11/14/17 09:16 White Blood Count 10.2 Red Blood Count 2.71 Hemoglobin 8.6 Hematocrit 24.3 Mean Corpuscular Volume 89.9 Mean Corpuscular Hemoglobin 31.7 Mean Corpuscular Hemoglobin Concent 35.2 Red Cell Distribution Width 17.3 Platelet Count 135 Mean Platelet Volume 7.3 Neutrophils (%) (Auto) 78.5 Lymphocytes (%) (Auto) 8.7 Monocytes (%) (Auto) 7.7 Eosinophils (%) (Auto) 4.6 Basophils (%) (Auto) 0.5 Neutrophils # (Auto) 8.0 Lymphocytes # (Auto) 0.9 Monocytes # (Auto) 0.8 Eosinophils # (Auto) 0.5 Basophils # (Auto) 0.0 CBC Comment DIFF FINAL Differential Comment Prothrombin Time 20.2 Prothromb Time International Ratio 2.0 Phosphorus Level 1.0 Magnesium Level 2.1 Date/Time Source Procedure Growth Status 11/12/17 21:16 Blood Peripheral Aerobic Blood Culture - Preliminary NO GROWTH IN 1 DAY Resulted 11/12/17 21:16 Blood Peripheral Anaerobic Blood Culture - Preliminary NO GROWTH IN 1 DAY Resulted 11/12/17 16:19 Urine Catheterized Urine Urine Culture - Preliminary NO GROWTH IN 48 HOURS. Resulted Imaging Last Impressions Chest X-Ray 11/14/17 0600 Signed Impressions: Service Date/Time: Tuesday, November 14, 2017 05:11 - CONCLUSION: Small left pleural effusion and interstitial edema. Corky Noyola MD Abdomen X-Ray 11/12/17 1952 Signed Impressions: Service Date/Time: Sunday, November 12, 2017 19:56 - CONCLUSION: NG tube tip is at the GE junction. Janusz Curtis MD Abdomen/Pelvis CT 11/12/17 0000 Signed Impressions: Service Date/Time: Sunday, November 12, 2017 22:00 - CONCLUSION: 1. Cirrhosis with small ascites and a recanalized umbilical vein with caput medusa. Possible mass of the right hepatic lobe and a followup nonemergent MRI of the abdomen with and without contrast is recommended. 2. Orogastric tube is coiled in the stomach. 3. No obstruction or acute inflammatory changes are seen of the gastrointestinal tract. 4. Atelectasis/infiltrate left lung base. Trace atelectasis right lung base. Janusz Curtis MD Physical Exam HEENT: normocephalic; atraumatic; +icterus CHEST: CTA CARDIAC: RRR ABDOMEN: Soft, mildly distended, no hepatosplenomegaly; bowel sounds are present in all four quadrants. EXTREMITIES: No clubbing, cyanosis, general edema SKIN: Normal; no rash; + jaundice. + spider angiomas NURSING FACULTY: Intubated sedated (Tiffany Washington) Assessment and Plan Plan 11/13/2017 42-year-old lady with significant anemia questionable etiology upper endoscopy showed AVM, hemoglobin stable now, had a colonoscopy done today Patient also has cirrhosis most likely secondary to alcohol, severe elevation of the liver function tests including total bilirubin patient also has a possible mass in the liver and today her CA 125 came back elevated IMPRESSION: Black stool spread throughout the colon and small pockets may interfere with the vision of small lesions 1 cm polyp in the ascending colon removed by snare 1 cm polyp in the sigmoid removed by snare No sign of active bleeding Bleeding could be from AVM from the small bowel Possible Liver mass with cirrhosis, tumor markers negative except CA 125 11/14/17 lessening coffee ground output OGT. LFTs trending up. ETOH hepatitis vs liver mass vs shock liver? DF 49. MRI liver pending. HH stable. NH 70 PLAN: await MRI lactulose continue PPI Await colonoscopy biopsy Monitor labs PRBC as needed Colonoscopy in 6 month Capsule endoscopy as an outpatient supportive care pt seen by myself and Dr Gregg and this note is on his behalf (Tiffany Washington) Plan Patient was seen and examined, agree with above-noted, await results of MRI to rule out possible malignancy in the liver, still having coffee-ground output but hemoglobin stable, I discussed the case with the family and with Dr. Nuñez the associate merchandiser, if there is more sign of active bleeding we'll repeat upper endoscopy (Orville Gregg MD) Tiffany Washington Nov 14, 2017 10:20 Orville Gregg MD Nov 14, 2017 11:36
[2017-11-14] MEDS: LACTULOSE SYRUP 20 GM/30 ML CUP PO SCH ×2 (12:14→17:06)
[2017-11-14] MEDS ORDERED: GADODIAMIDE PF 287 MG/ML 5 ML VIAL (for RAD MRI) IVCONTRAST ONE (13:55)
--- NOTE | 2017-11-14 15:31 | RADRPT ---
EXAM DATE/TIME: 11/14/2017 13:50 [facility] COMPARISON: CT ABDOMEN & PELVIS W/O CONTRAST, November 12, 2017, 22:00. INDICATIONS : Liver lesion. Hepatoma. CONTRAST: 17 cc Omniscan (gadodiamide) IV MEDICAL HISTORY : Cirrhosis. Vented. SURGICAL HISTORY : Hysterectomy. Cholecystectomy. Left wrist sx. ENCOUNTER: Initial ACUITY: 1 day PAIN SCORE: Nonresponsive. LOCATION: Bilateral upper quadrant TECHNIQUE: Multiplanar, multisequence magnetic resonance imaging of the abdomen was performed without and with i ntravenous contrast. FINDINGS: LIVER: Again, the liver is nodular in contour consistent with cirrhosis. The question possible mass within t he right hepatic lobe does not represent a suspicious lesion and is consistent with a lobulation of t he liver parenchyma. No abnormal enhancing mass is noted within the liver. Ascites is noted along the edge of the liver. A recanalized umbilical vein is again noted consistent with sequelae of portal hy pertension. Perigastric varices are also noted. BILIARY: There is no intra- or extra-hepatic biliary ductal dilatation. Gallbladder contains no stones. SPLEEN: Within normal limits. PANCREAS: Within normal limits. ADRENALS: Within normal limits. KIDNEYS: Normal size and signal intensity. There is no hydronephrosis or mass. OTHER: Aorta is nonaneurysmal. There is no lymphadenopathy. Small pleural effusions with adjacent compressiv e atelectasis are noted within the lung bases. CONCLUSION: 1. No evidence of abnormal enhancing hepatic mass. 2. Cirrhosis of the liver, ascites, recanalization of the umbilical vein, and perigastric varices con sistent with portal hypertension. 3. Small bilateral pleural effusions with adjacent compressive atelectasis. Gordon Klein MD on November 14, 2017 at 15:20 Board Certified Radiologist. This report was verified electronically.
--- NOTE | 2017-11-14 15:41 | RADRPT ---
EXAM DATE/TIME: 11/14/2017 15:05 [facility] COMPARISON: CHEST SINGLE AP, November 14, 2017, 5:11. INDICATIONS : Possible central line dislodgement. MEDICAL HISTORY : Cirrhosis. SURGICAL HISTORY : Hysterectomy. ENCOUNTER: Subsequent ACUITY: 3 days PAIN SCORE: Non-responsive. LOCATION: Bilateral chest FINDINGS: Portable AP view of the chest demonstrates a normal-sized cardiac silhouette. Endotracheal tube and n asogastric tube remain present. Right IJ line also remains present with distal tip overlying the SVC. There is airspace consolidation in the right lower lung zone and there is a stable small left basila r pleural-parenchymal opacity. No pneumothorax is identified. CONCLUSION: 1. A right IJ central line remains present with tip overlying the SVC. No pneumothorax is seen. 2. Stable small left pleural effusion with associated volume loss and/or consolidation. 3. Stable right lower lung zone airspace consolidation. Janusz De La Cruz MD on November 14, 2017 at 15:37 Board Certified Radiologist. This report was verified electronically.
[2017-11-15] VITALS (19 sets, daily range): BP systolic 102–123; BP diastolic 58–72; PULSE 60–96; RESP 13–16; TEMP 97.8–98.6; O2SAT 90–100
[2017-11-15] MEDS: PANTOPRAZOLE INJ 80 MG in SODIUM CHLORIDE 0.9% INJ 100 ML IV SCH (03:10)
[2017-11-15] MEDS: PROPOFOL 1000 MG/100 ML INJ 100 ML IV PRN ×2 (03:12→08:41)
[2017-11-15] MEDS: METRONIDAZOLE 500 MG/100 ML ISONTONIC SOLN IV SCH ×3 (03:12→20:35)
[2017-11-15] MEDS: NOREPINEPHRINE INJ 4 MG in SODIUM CHLOR 0.9% 250 ML INJ 246 ML IV PRN (03:12)
[2017-11-15] MEDS: OCTREOTIDE INJ 500 MCG in SODIUM CHLORID 0.9% 500 ML INJ 499.5 ML IV SCH (03:13)
[2017-11-15 03:48] LABS: AUTOMATED NEUTROPHIL # 5.4 TH/MM3 (1.8-7.7); BASOPHIL % 0.5 % (0.0-2.0); EOSINOPHIL # 0.3 TH/MM3 (0-0.4); EOSINOPHIL % 4.6 % (0.0-4.0); HEMATOCRIT 23.9 % (35.0-46.0); HEMOGLOBIN 8.3 GM/DL (11.6-15.3); LYMPH % 9.4 % (9.0-44.0); LYMPHOCYTE # 0.7 TH/MM3 (1.0-4.8); MEAN CELL VOLUME 91.4 FL (80.0-100.0); MEAN CORPUSCULAR HEMOGLOBIN 31.6 PG (27.0-34.0); MEAN CORPUSCULAR HGB CONC 34.6 % (32.0-36.0); MEAN PLATELET VOLUME 6.6 FL (7.0-11.0); MONO % 9.1 % (0.0-8.0); MONOCYTE # 0.6 TH/MM3 (0-0.9); NEUT % 76.4 % (16.0-70.0); PLATELET COUNT 117 TH/MM3 (150-450); RED BLOOD COUNT 2.61 MIL/MM3 (4.00-5.30); RED CELL DISTRIBUTION WIDTH 17.3 % (11.6-17.2); WHITE BLOOD COUNT 7.1 TH/MM3 (4.0-11.0)
[2017-11-15 03:57] LABS: INTERNATIONAL NORMALIZED RATIO 1.8 RATIO; PROTHROMBIN TIME - PATIENT 18.7 SEC (9.8-11.6)
[2017-11-15] MEDS: CHLORHEXIDINE GLUCONATE 2 % 1 PACK (2 CLOTHS) TOP SCH (04:00)
[2017-11-15 04:13] LABS: ALBUMIN 2.5 GM/DL (3.4-5.0); CALCIUM 7.1 MG/DL (8.5-10.1); CALCIUM-PROTEIN CORRECTED 8.5 MG/DL (8.5-10.1); CREATININE 0.75 MG/DL (0.50-1.00); MAGNESIUM 2.1 MG/DL (1.5-2.5); PHOSPHORUS 1.4 MG/DL (2.5-4.9); TOTAL PROTEIN 4.5 GM/DL (6.4-8.2)
[2017-11-15 04:14] LABS: TOTAL BILIRUBIN ADULT 9.5 MG/DL (0.2-1.0)
--- NOTE | 2017-11-15 05:36 | RADRPT ---
EXAM DATE/TIME: 11/15/2017 05:02 [facility] COMPARISON: CHEST SINGLE AP, November 14, 2017, 15:05. INDICATIONS : Shortness of breath. MEDICAL HISTORY : Cirrhosis. SURGICAL HISTORY : Hysterectomy. ENCOUNTER: Subsequent ACUITY: 4 - 6 days PAIN SCORE: Non-responsive. LOCATION: Bilateral chest FINDINGS: A single view of the chest demonstrates improving bibasilar densities, greater left lower lobe. Endot yady tube, nasogastric tube and right jugular central line stable in position. Osseous structures are intact. CONCLUSION: Improving bibasilar densities. Corky Noyola MD on November 15, 2017 at 5:34 Board Certified Radiologist. This report was verified electronically.
[2017-11-15] MEDS: AZTREONAM INJ 2,000 MG in SODIUM CHLORIDE 0.9% INJ 100 ML IV SCH ×2 (07:43→15:38)
[2017-11-15] MEDS: CHLORHEXIDINE 0.12% (ORAL KIT) 15 ML CUP MT SCH ×2 (07:43→20:35)
[2017-11-15] MEDS: ALBUMIN 25% INJ 100 ML IV SCH ×2 (07:43→18:05)
[2017-11-15] MEDS: THIAMINE INJ 100 MG in SODIUM CHLORIDE 0.9% INJ 100 ML IV SCH (08:44)
[2017-11-15] MEDS: SODIUM CHLOR 0.9% 1000 ML INJ 1,000 ML IV SCH (08:46)
[2017-11-15] MEDS: LACTULOSE SYRUP 20 GM/30 ML CUP PO SCH ×3 (09:15→18:05)
[2017-11-15] MEDS ORDERED: FUROSEMIDE 40 MG/4 ML VIAL ONE (09:47)
[2017-11-15] MEDS ORDERED: FUROSEMIDE 40 MG/4 ML VIAL IV PUSH ONE (10:15)
--- NOTE | 2017-11-15 11:20 | HHI.CCPN ---
Subjective Remarks/Hospital Course Patient is a 42-year-old female with past medical history significant for alcohol dependence and cirrhosis who presented to the [facility] emergency department for dark starry stools and coffee-ground vomiting starting last night. Patient had been very weak and had sustained a fall at home according to the history. In the ER she was very pale jaundiced. Had one episode of large amount of coffee-ground vomiting in the ED. hemoglobin came back at 3.4. Sodium was 125, bicarb was only 10, anion gap 32, BUN 80 with creatinine of 1.9. Patient received 1 unit of normal saline bolus. Right IJ central line was placed and blood transfusion and FFP was ordered for INR of 1.9. Patient's blood pressure started to trend down, and emergency release blood was ordered after 1 unit of blood transfusion, blood pressure started to stabilized. Patient received in addition to 1 unit PRBC, IV thiamine, Zofran, octreotide bolus, Protonix 80 mg IV bolus, and calcium. I was contacted by the ED physician and after discussion with Dr. Wiseman decision was made to emergently transfer patient to [facility] hospital for emergent EGD and other interventions if needed. I placed patient on bicarb infusion, Protonix infusion and octreotide infusion. I evaluated the patient immediately after arrival to the main ICU. Patient remains alert awake but confused. Her lactic acid came back at 25, additional fluid bolus was ordered. Currently receiving blood and blood product transfusion. Patient was intubated for airway protection and also to facilitate EGD. After intubation I also placed a right femoral central line. After EGD patient will need a CT of the abdomen pelvis with IV and oral contrast to rule out ischemic bowel as the lactic acid is severely elevated. Empiric antibiotics with IV vancomycin, IV Azactam, IV Flagyl. Discussed the patient multiple times with Dr. Roche and Dr. Wiseman 11/13: Remains critical but some improvement in perfusion. Received 6 units of PRBC to FFP and 1 unit of platelets overnight. Urine output approximately 1 L in the last 12 hours. Hemoglobin 8.8 today, INR 1.7. Lactate 24.3 to 3 today. ABG shows resolution of metabolic acidosis. Will discontinue bicarbonate infusion reduce PRVC rate to 16. EGD yesterday showed mild gastritis in the gastric antrum, with some coffee-ground material. Angiodysplastic lesion with bleeding was found in the 2nd part of the duodenum; cauterized with complete hemostasis. CT abdomen pelvis showed no signs of bowel ischemia, probable mass right lobe of liver 11/14: Patient remains intubated sedated, critically ill but stabilizing. Still requiring 7 mcg/min of Levophed. Continued NG tube coffee-ground output. INR is 2 will transfuse 1 unit of FFP, and 10 mg vitamin K IV. Start lactulose if okay with GI, check MRI of the abdomen rule out hepatoma. Updated mother at the bedside. 11/15: Patient remains intubated still requiring Levophed to maintain blood pressure map above 65, NG tube output has decreased significantly. Hemoglobin remained stable. CPAP trial past will proceed with extubation today Objective Vital Signs Date Time Temp Pulse Resp B/P (MAP) Pulse Ox O2 Delivery O2 Flow Rate FiO2 11/15/17 10:40 35 11/15/17 10:40 98 11/15/17 10:00 83 11/15/17 08:00 98.6 16 104/64 (77) 11/12/17 16:00 Mechanical Ventilator 11/12/17 14:10 3.00 Intake and Output 11/15/17 11/15/17 11/15/17 07:59 15:59 23:59 Intake Total 8702 ml 201 ml Output Total 500 ml Balance 8202 ml 201 ml Result Diagram: 11/15/17 0330 11/15/17 0330 Imaging Chest x-ray showed no acute findings Objective Remarks GENERAL: Well-developed well-nourished pale and jaundiced, critically ill SKIN: Warm/dry. HEAD: Atraumatic. Normocephalic. EYES: Pupils equal and round. Positive icterus, positive pallor ENT: Orotracheally intubated. Mucous membranes dry NECK: Trachea midline. No JVD. CARDIOVASCULAR: S1-S2 normal. No murmur appreciated. RESPIRATORY: PRVC. Clear to auscultation. Breath sounds equal bilaterally, diminished at the bases GASTROINTESTINAL: Abdomen soft, non-tender, nondistended. Stretch griggs noted MUSCULOSKELETAL: Extremities are poorly perfused NEUROLOGICAL: Intubated off sedation, follows commands, Moving all extremities. Nonfocal exam A/P Assessment and Plan NEURO: Hepatic encephalopathy -Intubated for airway protection and to facilitate procedures -DC Propofol, fentanyl for possible extubation -Supplement thiamine -Lactulose 30 mL 4 times daily RESP: Acute respiratory failure -Intubated and placed on mechanical ventilation on admission 11/12/17 -SBT with possible extubation -DuoNeb every 6 hours as needed, Ventilator bundle, head of bed elevation to 30 CV: Hemorrhagic shock-improving Lactic acidosis, severe-resolving -Normal saline IV fluids, 100 ml per hour-DC and give IV Lasix 40 gm x1 -Levophed to keep map above 65 -Lactic acid, with aggressive resuscitation down from 24.3 to 3. GI/HEME: GI bleed Angiodysplasia of the second part of duodenum Liver cirrhosis Probable right hepatic mass Severe anemia requiring transfusion Coagulopathy -Continue Protonix and octreotide infusions -Emergent EGD by Dr. Roche 11/12 showed angiodysplasia of the second part of duodenum, status post cauterization with complete hemostasis -Colonoscopy by Dr. Figueroa in 11/13/2017: Black stool throughout the colon. 2 colon polyps removed -Bleeding most likely from small bowel AVMs, capsule endoscopy recommended as outpatient -Patient continues to have coffee-ground OG tube output -On IV Protonix infusion, IV octreotide. 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 -Continue correction of coagulopathy 1 unit of FFP and 10 mg vitamin K today -Trend H&H, INR -MRI of the liver to rule out hepatoma-no evidence of hepatoma -CA 125 elevated at 60, may be nonspecific. Will need outpatient follow-up : Acute kidney injury/prerenal Possible hepatorenal syndrome -Secondary to severe dehydration and ATN, now resolved -Continue IV fluid resuscitation as above-discontinue IV fluids today and give IV Lasix 40 mg 1. Ward catheter. -Creatinine improving with aggressive resuscitation ID: Leukocytosis Probable sepsis -IV vancomycin. Azactam, Flagyl. DC Vanc -complete 7 day course of Azactam Flagyl -F/u blood culture, urine culture-neg to date -SBP prophylaxis provided by above antibiotics ENDO: -Electrolyte replacement per protocol PROPH: -Bilateral lower extremity SCDs. Chemical DVT prophylaxis is contraindicated, continue IV Protonix LINES: -Right IJ central line placed in the ER, right femoral arterial line placed in ICU 11/12/17. DC art line today Level 3 Karsten Boudreaux MD Nov 15, 2017 11:20
[2017-11-15] MEDS: PANTOPRAZOLE SODIUM 40 MG VIAL IV PUSH SCH ×2 (12:40→20:35)
--- NOTE | 2017-11-15 12:57 | HHI.GIFU ---
Subjective Remarks REsting in bed. just extubated. Family at bedside. (Tiffany Washington) Objective Vitals I&O Vital Signs Date Time Temp Pulse Resp B/P (MAP) Pulse Ox O2 Delivery O2 Flow Rate FiO2 11/15/17 12:00 98.6 93 16 123/59 (80) 93 11/15/17 12:00 96 11/15/17 11:23 99 4 11/15/17 11:20 100 Nasal Cannula 4.00 11/15/17 10:40 35 11/15/17 10:40 98 35 11/15/17 10:00 40 11/15/17 10:00 83 11/15/17 08:33 100 40 11/15/17 08:00 70 11/15/17 08:00 98.6 60 16 104/64 (77) 100 11/15/17 08:00 40 11/15/17 06:00 61 11/15/17 06:00 61 103/60 11/15/17 04:13 100 40 11/15/17 04:00 64 11/15/17 04:00 40 11/15/17 04:00 98.4 64 16 102/58 (73) 100 11/15/17 03:12 65 112/68 11/15/17 02:00 64 11/15/17 00:00 66 11/15/17 00:00 40 11/15/17 00:00 98.4 62 16 116/72 (87) 100 11/14/17 23:40 100 40 11/14/17 22:00 65 11/14/17 20:41 100 40 11/14/17 20:00 40 11/14/17 20:00 98.4 70 22 106/64 (78) 100 11/14/17 20:00 70 11/14/17 18:04 100 40 11/14/17 18:00 66 11/14/17 16:52 64 100/56 11/14/17 16:00 66 11/14/17 16:00 30 11/14/17 16:00 98.0 66 16 105/55 (72) 100 Arterial Line 11/14/17 14:00 81 I/O 11/14/17 11/14/17 11/14/17 11/15/17 11/15/17 11/15/17 07:00 15:00 23:00 07:00 15:00 23:00 Intake Total 2150 ml 551 ml 8702 ml 301 ml Output Total 1000 ml 1000 ml 500 ml Balance 1150 ml 551 ml -1000 ml 8202 ml 301 ml Intake IV Total 2150 ml 51 ml 8702 ml 301 ml FFP 300 ml Blood Product IV Normal Saline Flush 200 ml Output Urine Total 750 ml 650 ml 500 ml Stool Total 0 ml 0 ml 0 ml Gastric Drainage Total 250 ml 350 ml Laboratory Laboratory Tests Test 11/15/17 03:30 White Blood Count 7.1 Red Blood Count 2.61 Hemoglobin 8.3 Hematocrit 23.9 Mean Corpuscular Volume 91.4 Mean Corpuscular Hemoglobin 31.6 Mean Corpuscular Hemoglobin Concent 34.6 Red Cell Distribution Width 17.3 Platelet Count 117 Mean Platelet Volume 6.6 Neutrophils (%) (Auto) 76.4 Lymphocytes (%) (Auto) 9.4 Monocytes (%) (Auto) 9.1 Eosinophils (%) (Auto) 4.6 Basophils (%) (Auto) 0.5 Neutrophils # (Auto) 5.4 Lymphocytes # (Auto) 0.7 Monocytes # (Auto) 0.6 Eosinophils # (Auto) 0.3 Basophils # (Auto) 0.0 CBC Comment DIFF FINAL Differential Comment Prothrombin Time 18.7 Prothromb Time International Ratio 1.8 Blood Urea Nitrogen 18 Creatinine 0.75 Random Glucose 80 Total Protein 4.5 Albumin 2.5 Calcium Level 7.1 Phosphorus Level 1.4 Magnesium Level 2.1 Alkaline Phosphatase 115 Aspartate Amino Transf (AST/SGOT) 465 Alanine Aminotransferase (ALT/SGPT) 279 Total Bilirubin 9.5 Sodium Level 144 Potassium Level 3.5 Chloride Level 112 Carbon Dioxide Level 25.0 Anion Gap 7 Estimat Glomerular Filtration Rate 85 Protein Corrected Calcium 8.5 Date/Time Source Procedure Growth Status 11/12/17 21:16 Blood Peripheral Aerobic Blood Culture - Preliminary NO GROWTH IN 3 DAYS Resulted 11/12/17 21:16 Blood Peripheral Anaerobic Blood Culture - Preliminary NO GROWTH IN 3 DAYS Resulted 11/12/17 16:19 Urine Catheterized Urine Urine Culture - Preliminary NO GROWTH IN 48 HOURS. Resulted Imaging Last Impressions Chest X-Ray 11/15/17 0600 Signed Impressions: Service Date/Time: Wednesday, November 15, 2017 05:02 - CONCLUSION: Improving bibasilar densities. Corky Noyola MD Abdomen MRI 11/14/17 0000 Signed Impressions: Service Date/Time: Tuesday, November 14, 2017 13:50 - CONCLUSION: 1. No evidence of abnormal enhancing hepatic mass. 2. Cirrhosis of the liver, ascites, recanalization of the umbilical vein, and perigastric varices consistent with portal hypertension. 3. Small bilateral pleural effusions with adjacent compressive atelectasis. Gordon Klein MD Abdomen X-Ray 11/12/171951 Signed Impressions: Service Date/Time: Sunday, November 12, 2017 19:56 - CONCLUSION: NG tube tip is at the GE junction. Janusz Curtis MD Abdomen/Pelvis CT 11/12/17 0000 Signed Impressions: Service Date/Time: Sunday, November 12, 2017 22:00 - CONCLUSION: 1. Cirrhosis with small ascites and a recanalized umbilical vein with caput medusa. Possible mass of the right hepatic lobe and a followup nonemergent MRI of the abdomen with and without contrast is recommended. 2. Orogastric tube is coiled in the stomach. 3. No obstruction or acute inflammatory changes are seen of the gastrointestinal tract. 4. Atelectasis/infiltrate left lung base. Trace atelectasis right lung base. Janusz Curtis MD Physical Exam HEENT: normocephalic; atraumatic; +icterus CHEST: coarse CARDIAC: RRR ABDOMEN: Soft, mildly distended, no hepatosplenomegaly; bowel sounds are present in all four quadrants. EXTREMITIES: No clubbing, cyanosis, general edema SKIN: no rash; + jaundice. + spider angiomas BUSINESS CONTINUITY MANAGEMENT DIRECTOR:lethargic (Tiffany Washington) Assessment and Plan Plan 11/13/2017 42-year-old lady with significant anemia questionable etiology upper endoscopy showed AVM, hemoglobin stable now, had a colonoscopy done today Patient also has cirrhosis most likely secondary to alcohol, severe elevation of the liver function tests including total bilirubin patient also has a possible mass in the liver and today her CA 125 came back elevated IMPRESSION: Black stool spread throughout the colon and small pockets may interfere with the vision of small lesions 1 cm polyp in the ascending colon removed by snare 1 cm polyp in the sigmoid removed by snare No sign of active bleeding Bleeding could be from AVM from the small bowel Possible Liver mass with cirrhosis, tumor markers negative except CA 125 11/14/17 lessening coffee ground output OGT. LFTs trending up. ETOH hepatitis vs liver mass vs shock liver? DF 49. MRI liver pending. HH stable. NH 70 11/15/17 decreasing coffee ground output. MRI showed cirrhosis, ascites, varices, portal HTN, no evidence mass. s/p extubation. HH stable. LFTs trending down. colon bx adenomatous polyp PLAN: lactulose if further bleeding will repeat EGD continue PPI Monitor labs PRBC as needed Colonoscopy in 6 month Capsule endoscopy as an outpatient no etoh supportive care pt seen by myself and Dr Gregg and this note is on his behalf (Tiffany Washington) Plan Patient was seen and examined, agree with above-noted, she was extubated, opening her eyes but still lethargic, no sign of active bleeding, hemoglobin stable, I had a discussion with her mom about her seriousness of the disease with the cirrhosis and alcohol and that she need to be off alcohol completely we discussed prognosis and the we will continue monitoring and see how she progress (Orville Gregg MD) Tiffany Washington Nov 15, 2017 12:57 Orville Gregg MD Nov 15, 2017 13:58
[2017-11-15] MEDS: ONDANSETRON HCL 4 MG/2 ML VIAL IV PUSH PRN (17:15)
[2017-11-15] MEDS: RESP: ALBUTEROL 2.5 MG/IPRATROPIUM 0.5 MG NEB (PRN) INH (21:33)
[2017-11-16] VITALS (11 sets, daily range): BP systolic 106–124; BP diastolic 57–76; PULSE 69–87; RESP 13–26; TEMP 97.3–99.2; O2SAT 95–98
[2017-11-16] MEDS: AZTREONAM INJ 2,000 MG in SODIUM CHLORIDE 0.9% INJ 100 ML IV SCH ×4 (00:02→22:50)
[2017-11-16 03:01] LABS: HEMOGLOBIN 7.7 GM/DL (11.6-15.3); MEAN CORPUSCULAR HGB CONC 34.8 % (32.0-36.0); PLATELET COUNT 97 TH/MM3 (150-450); RED BLOOD COUNT 2.39 MIL/MM3 (4.00-5.30); RED CELL DISTRIBUTION WIDTH 18.2 % (11.6-17.2); WHITE BLOOD COUNT 7.4 TH/MM3 (4.0-11.0)
[2017-11-16 03:11] LABS: INTERNATIONAL NORMALIZED RATIO 1.9 RATIO; PROTHROMBIN TIME - PATIENT 18.8 SEC (9.8-11.6)
[2017-11-16] MEDS: ONDANSETRON HCL 4 MG/2 ML VIAL IV PUSH PRN (03:19)
[2017-11-16] MEDS: METRONIDAZOLE 500 MG/100 ML ISONTONIC SOLN IV SCH (03:19)
[2017-11-16 03:26] LABS: PHOSPHORUS 1.4 MG/DL (2.5-4.9)
[2017-11-16] MEDS: RESP: ALBUTEROL 2.5 MG/IPRATROPIUM 0.5 MG NEB (PRN) INH (03:26)
[2017-11-16] MEDS: CHLORHEXIDINE GLUCONATE 2 % 1 PACK (2 CLOTHS) TOP SCH (03:31)
[2017-11-16 04:28] LABS: BANDS 5 % (0-6); LYMPHOCYTES 10 % (9-44); METAMYELOCYTES 1 % (0-1); MONOCYTES 5 % (0-8); NEUTROPHIL # MANUAL DIFF 6.2 TH/MM3 (1.8-7.7); POLYS (SEG NEUTROPHILS) 78 % (16-70)
[2017-11-16 04:31] LABS: POLYCHROMASIA 3.1 % (0.0-1.9)
[2017-11-16] MEDS: CHLORHEXIDINE 0.12% (ORAL KIT) 15 ML CUP MT SCH ×2 (07:39→20:00)
[2017-11-16] MEDS ORDERED: FUROSEMIDE 40 MG/4 ML VIAL IV PUSH ONE (08:15)
[2017-11-16] MEDS ORDERED: POTASSIUM CHLOR 40 MEQ PREMIX 100 ML IV ONE ×2 (08:15→09:30)
[2017-11-16] MEDS ORDERED: PHYTONADIONE 5 MG/SWFI 5 ML ORAL SYR PO ONE (08:30)
--- NOTE | 2017-11-16 09:00 | HHI.CCPN ---
Subjective Remarks/Hospital Course Patient is a 42-year-old female with past medical history significant for alcohol dependence and cirrhosis who presented to the [facility] emergency department for dark starry stools and coffee-ground vomiting starting last night. Patient had been very weak and had sustained a fall at home according to the history. In the ER she was very pale jaundiced. Had one episode of large amount of coffee-ground vomiting in the ED. hemoglobin came back at 3.4. Sodium was 125, bicarb was only 10, anion gap 32, BUN 80 with creatinine of 1.9. Patient received 1 unit of normal saline bolus. Right IJ central line was placed and blood transfusion and FFP was ordered for INR of 1.9. Patient's blood pressure started to trend down, and emergency release blood was ordered after 1 unit of blood transfusion, blood pressure started to stabilized. Patient received in addition to 1 unit PRBC, IV thiamine, Zofran, octreotide bolus, Protonix 80 mg IV bolus, and calcium. I was contacted by the ED physician and after discussion with Dr. Wiseman decision was made to emergently transfer patient to [facility] hospital for emergent EGD and other interventions if needed. I placed patient on bicarb infusion, Protonix infusion and octreotide infusion. I evaluated the patient immediately after arrival to the main ICU. Patient remains alert awake but confused. Her lactic acid came back at 25, additional fluid bolus was ordered. Currently receiving blood and blood product transfusion. Patient was intubated for airway protection and also to facilitate EGD. After intubation I also placed a right femoral central line. After EGD patient will need a CT of the abdomen pelvis with IV and oral contrast to rule out ischemic bowel as the lactic acid is severely elevated. Empiric antibiotics with IV vancomycin, IV Azactam, IV Flagyl. Discussed the patient multiple times with Dr. Roche and Dr. Wiseman 11/13: Remains critical but some improvement in perfusion. Received 6 units of PRBC to FFP and 1 unit of platelets overnight. Urine output approximately 1 L in the last 12 hours. Hemoglobin 8.8 today, INR 1.7. Lactate 24.3 to 3 today. ABG shows resolution of metabolic acidosis. Will discontinue bicarbonate infusion reduce PRVC rate to 16. EGD yesterday showed mild gastritis in the gastric antrum, with some coffee-ground material. Angiodysplastic lesion with bleeding was found in the 2nd part of the duodenum; cauterized with complete hemostasis. CT abdomen pelvis showed no signs of bowel ischemia, probable mass right lobe of liver 11/14: Patient remains intubated sedated, critically ill but stabilizing. Still requiring 7 mcg/min of Levophed. Continued NG tube coffee-ground output. INR is 2 will transfuse 1 unit of FFP, and 10 mg vitamin K IV. Start lactulose if okay with GI, check MRI of the abdomen rule out hepatoma. Updated mother at the bedside. 11/15: Patient remains intubated still requiring Levophed to maintain blood pressure map above 65, NG tube output has decreased significantly. Hemoglobin remained stable. CPAP trial past will proceed with extubation today 11/16: Extubated yesterday breathing comfortably, Off Levophed since yesterday, UO excellent with IV Lasix given yesterday. Hb 7.7 today, INR 1.9 no evidence of active bleeding Objective Vital Signs Date Time Temp Pulse Resp B/P (MAP) Pulse Ox O2 Delivery O2 Flow Rate FiO2 11/16/17 06:00 78 11/16/17 04:00 97.3 14 112/57 (75) 97 11/15/17 21:39 Nasal Cannula 6.00 11/15/17 10:40 35 Intake and Output 11/16/17 11/16/17 11/17/17 08:00 16:00 00:00 Intake Total 400 ml Output Total 1050 ml Balance -650 ml Result Diagram: 11/16/17 0250 11/16/17 0250 Imaging Chest x-ray showed no acute findings Objective Remarks GENERAL: Well-developed well-nourished pale and jaundiced SKIN: Warm/dry. HEAD: Atraumatic. Normocephalic. EYES: Pupils equal and round. Positive icterus, positive pallor ENT: Mucous membranes moist, airway patent NECK: Trachea midline. No JVD. CARDIOVASCULAR: S1-S2 normal. No murmur appreciated. RESPIRATORY: Clear to auscultation. Breath sounds equal bilaterally, diminished at the bases GASTROINTESTINAL: Abdomen soft, non-tender, nondistended. Stretch griggs noted. No fluid thrill MUSCULOSKELETAL: Extremities are poorly perfused NEUROLOGICAL: Alert awake, follows commands, Moving all extremities. Nonfocal exam A/P Assessment and Plan NEURO: Hepatic encephalopathy -Minimize sedation -Supplement thiamine -Lactulose 30 mL 4 times daily RESP: Acute respiratory failure-resolved -Intubated and placed on mechanical ventilation on admission 11/12/17, extubated -DuoNeb every 6 hours as needed CV: Hemorrhagic shock-resolved Lactic acidosis, severe-resolved -IV Lasix 40 gm x1 11/15,a nd 11/16 -Levophed off since yesterday -Lactic acid, with aggressive resuscitation down from 24.3 to 3. GI/HEME: GI bleed Angiodysplasia of the second part of duodenum Liver cirrhosis Probable right hepatic mass Severe anemia requiring transfusion Coagulopathy -Protonix 40 mg iv q12, off otreotide infusions -Emergent EGD by Dr. Roche 11/12 showed angiodysplasia of the second part of duodenum, status post cauterization with complete hemostasis -Colonoscopy by Dr. Figueroa in 11/13/2017: Black stool throughout the colon. 2 colon polyps removed -Bleeding most likely from small bowel AVMs, capsule endoscopy recommended as outpatient -s/p 6 units PRBC, 2 FFP, 1 platelet. -Continue correction of coagulopathy 5 mg vitamin K po today -Trend H&H, INR -MRI of the liver to rule out hepatoma-no evidence of hepatoma -CA 125 elevated at 60, may be nonspecific. Plan outpatient follow-up : Acute kidney injury/prerenal Possible hepatorenal syndrome -Secondary to severe dehydration and ATN, now resolved -IV Lasix 40 mg 1, repeat dose today. Ward catheter. -Creatinine improved with aggressive resuscitation ID: Leukocytosis Probable sepsis -complete 7 day course of Azactam. DC Flagyl -F/u blood culture, urine culture-neg to date -SBP prophylaxis provided by above antibiotics ENDO: -Electrolyte replacement per protocol PROPH: -Bilateral lower extremity SCDs. Chemical DVT prophylaxis is contraindicated, continue IV Protonix LINES: -Right IJ central line placed in the ER, right femoral arterial line placed in ICU 11/12/17. DC both today Level 2 Transfer to Med surg with Tele. Consult [facility] to assume care in am 11/16/17 Karsten Boudreaux MD Nov 16, 2017 09:00
[2017-11-16] MEDS: LACTULOSE SYRUP 20 GM/30 ML CUP PO SCH ×3 (09:02→18:02)
[2017-11-16] MEDS: PANTOPRAZOLE SODIUM 40 MG VIAL IV PUSH SCH ×2 (09:03→22:51)
[2017-11-16] MEDS: THIAMINE HCL 100 MG TAB PO SCH (10:58)
--- NOTE | 2017-11-16 12:04 | HHI.GIFU ---
Subjective Remarks Pt resting in bed States she wants food Rectal bag with liquid green/brown stool No emesis (Hawa Gordon) Objective Vitals I&O Vital Signs Date Time Temp Pulse Resp B/P (MAP) Pulse Ox O2 Delivery O2 Flow Rate FiO2 11/16/17 09:15 96 Nasal Cannula 6.00 11/16/17 08:00 74 11/16/17 08:00 97.8 74 13 111/67 (82) 96 11/16/17 06:00 78 11/16/17 04:00 97.3 69 14 112/57 (75) 97 11/16/17 04:00 76 11/16/17 02:00 76 11/16/17 00:00 97.9 77 20 124/76 (92) 97 11/16/17 00:00 80 11/16/17 00:00 80 11/15/17 22:00 80 11/15/17 21:39 96 Nasal Cannula 6.00 11/15/17 20:00 97.8 84 13 122/64 (83) 90 11/15/17 20:00 80 11/15/17 19:48 93 Nasal Cannula 3.50 11/15/17 18:00 80 11/15/17 16:00 81 11/15/17 16:00 97.9 81 15 121/59 (79) 98 11/15/17 14:00 89 11/15/17 12:00 98.6 93 16 123/59 (80) 93 11/15/17 12:00 96 I/O 11/15/17 11/15/17 11/15/17 11/16/17 11/16/17 11/16/17 07:00 15:00 23:00 07:00 15:00 23:00 Intake Total 8702 ml 401 ml 100 ml 400 ml Output Total 500 ml 2700 ml 1050 ml Balance 8202 ml 401 ml -2600 ml -650 ml Intake Oral 400 ml IV Total 8702 ml 401 ml 100 ml Output Urine Total 500 ml 2500 ml 850 ml Stool Total 0 ml 200 ml 200 ml Laboratory Laboratory Tests Test 11/16/17 02:50 White Blood Count 7.4 Red Blood Count 2.39 Hemoglobin 7.7 Hematocrit 22.0 Mean Corpuscular Volume 92.0 Mean Corpuscular Hemoglobin 32.0 Mean Corpuscular Hemoglobin Concent 34.8 Red Cell Distribution Width 18.2 Platelet Count 97 Mean Platelet Volume 7.0 CBC Comment AUTO DIFF Differential Total Cells Counted 100 Neutrophils % (Manual) 78 Band Neutrophils % 5 Lymphocytes % 10 Monocytes % 5 Eosinophils % 1 Neutrophils # (Manual) 6.2 Metamyelocytes 1 Differential Comment FINAL DIFF MANUAL Platelet Estimate LOW Platelet Morphology Comment NORMAL Polychromasia 3.1 Prothrombin Time 18.8 Prothromb Time International Ratio 1.9 Potassium Level 3.5 Phosphorus Level 1.4 Magnesium Level 2.0 Date/Time Source Procedure Growth Status 11/12/17 21:16 Blood Peripheral Aerobic Blood Culture - Preliminary NO GROWTH IN 4 DAYS Resulted 11/12/17 21:16 Blood Peripheral Anaerobic Blood Culture - Preliminary NO GROWTH IN 4 DAYS Resulted 11/12/17 16:19 Urine Catheterized Urine Urine Culture - Preliminary NO GROWTH IN 48 HOURS. Resulted Imaging Last Impressions Chest X-Ray 11/15/17 0600 Signed Impressions: Service Date/Time: Wednesday, November 15, 2017 05:02 - CONCLUSION: Improving bibasilar densities. Corky Noyola MD Abdomen MRI 11/14/17 0000 Signed Impressions: Service Date/Time: Tuesday, November 14, 2017 13:50 - CONCLUSION: 1. No evidence of abnormal enhancing hepatic mass. 2. Cirrhosis of the liver, ascites, recanalization of the umbilical vein, and perigastric varices consistent with portal hypertension. 3. Small bilateral pleural effusions with adjacent compressive atelectasis. Gordon Klein MD Abdomen X-Ray 11/12/171951 Signed Impressions: Service Date/Time: Sunday, November 12, 2017 19:56 - CONCLUSION: NG tube tip is at the GE junction. Janusz Curtis MD Abdomen/Pelvis CT 11/12/17 0000 Signed Impressions: Service Date/Time: Sunday, November 12, 2017 22:00 - CONCLUSION: 1. Cirrhosis with small ascites and a recanalized umbilical vein with caput medusa. Possible mass of the right hepatic lobe and a followup nonemergent MRI of the abdomen with and without contrast is recommended. 2. Orogastric tube is coiled in the stomach. 3. No obstruction or acute inflammatory changes are seen of the gastrointestinal tract. 4. Atelectasis/infiltrate left lung base. Trace atelectasis right lung base. Janusz Curtis MD Physical Exam HEENT: Normocephalic; atraumatic; +icterus CHEST: Even/unlabored CARDIAC: RRR ABDOMEN: Distended, soft, nontender, bowel sounds active EXTREMITIES: Generalized edema SKIN: (+) jaundice CHILDCARE ATTENDANT: Awake, answers questions appropriately (Hawa Gordon) Assessment and Plan Plan Assessment: - Cirrhosis- secondary to ETOH. MELD-25 DF-41 Concern for possible mass of right hepatic lobe of the liver on CT MRI abdomen (11/14) --> No evidence of abnormal enhancing hepatic mass. Cirrhosis of the liver, ascites, recanalization of the umbilical vein, and perigastric varices consistent with portal HTN. Tumor markers: AFP-2.5 CEA-4.3 CA 19-9-13.5 QW614-19.5 - Anemia with reports of dark stool and coffee ground emesis on admission S/P EGD --> Class B esophagitis. Mild gastritis in the gastric antrum, some coffee grounds. No blood. Angiodysplastic lesion with bleeding was found in the 2nd part of the duodenum, cautery with complete hemostasis. S/P Colonoscopy --> Black stool spread throughout the colon and small pockets may interfere with the vision of small lesions. 1 cm polyp in the ascending colon removed by snare. 1 cm polyp in the sigmoid removed by snare. No sign of active bleeding. Could be from AVM in small bowel. Pathology - 2 adenomatous polyps. (11/16) Anemia- no obvious GIB- flexiseal with green/brown liquid stool. No longer has OG and no reports of emesis. H/H dropped some, hgb from 8.3 to 7.7 Cirrhosis-AST and ALT trending down. T bili remains elevated at 9.5. DF of 41 would likely benefit from steroids, however initial concern for sepsis pt is on 7 day course of Azactam with plans to repeat blood cultures after 7 days, initial blood cultures on 11/12 are preliminary negative. Will add Pentoxifylline Ammonia elevated at 70 on 11/13 no recheck, pt is on Lactulose Thrombocytopenia noted- platelets 97 Coagulopathy- INR 1.9 Plan: Add Pentoxifylline Monitor CMP, H/H, platelets, INR Protonix Advance diet- 2gm low sodium Monitor for active GIB Notify GI if active bleeding Pt will need capsule endoscopy outpatient Further recommendations based on clinical course Pt has been seen and examined by myself and Dr. Gregg and this note is written on his behalf (Hawa Gordon) Plan Patient was seen and examined, agree with above-noted, more awake today, discussed the case with the patient mother overall unless significant changes in her lifestyle with significant improvement in her prognosis is guarded (Orville Gregg MD) Hawa Gordon Nov 16, 2017 12:04 Orville Gregg MD Nov 16, 2017 17:55
[2017-11-16] MEDS: PENTOXIFYLLINE 400 MG CONTROLLED RELEASE TAB PO SCH ×2 (13:37→22:51)
[2017-11-17] VITALS (11 sets, daily range): BP systolic 98–110; BP diastolic 53–58; PULSE 78–92; RESP 14–22; TEMP 97.6–99.6; O2SAT 93–99
[2017-11-17] MEDS: CHLORHEXIDINE GLUCONATE 2 % 1 PACK (2 CLOTHS) TOP SCH (04:00)
--- NOTE | 2017-11-17 04:52 | RADRPT ---
EXAM DATE/TIME: 11/17/2017 03:25 [facility] COMPARISON: CHEST SINGLE AP, November 15, 2017, 5:02. INDICATIONS : Shortness of breath. MEDICAL HISTORY : Cirrhosis. SURGICAL HISTORY : Hysterectomy. ENCOUNTER: Subsequent ACUITY: 4 - 6 days PAIN SCORE: Non-responsive. LOCATION: chest FINDINGS: There has been interval extubation and removal of nasogastric tube and central line. There has been s light interval worsening in aeration with development of moderate bilateral perihilar and basilar norman eolar infiltrates. Cardiac contour is grossly unchanged. CONCLUSION: Interval extubation with worsening aeration Janusz Gooden MD on November 17, 2017 at 4:49 Board Certified Radiologist. This report was verified electronically.
[2017-11-17 05:33] LABS: AUTOMATED NEUTROPHIL # 7.1 TH/MM3 (1.8-7.7); BASOPHIL # 0.1 TH/MM3 (0-0.2); BASOPHIL % 0.7 % (0.0-2.0); EOSINOPHIL # 0.2 TH/MM3 (0-0.4); EOSINOPHIL % 2.7 % (0.0-4.0); HEMATOCRIT 23.5 % (35.0-46.0); HEMOGLOBIN 8.2 GM/DL (11.6-15.3); LYMPH % 6.8 % (9.0-44.0); LYMPHOCYTE # 0.6 TH/MM3 (1.0-4.8); MEAN CELL VOLUME 92.6 FL (80.0-100.0); MEAN CORPUSCULAR HEMOGLOBIN 32.2 PG (27.0-34.0); MEAN CORPUSCULAR HGB CONC 34.8 % (32.0-36.0); MEAN PLATELET VOLUME 6.9 FL (7.0-11.0); MONO % 10.3 % (0.0-8.0); MONOCYTE # 0.9 TH/MM3 (0-0.9); NEUT % 79.5 % (16.0-70.0); PLATELET COUNT 88 TH/MM3 (150-450); RED BLOOD COUNT 2.54 MIL/MM3 (4.00-5.30); RED CELL DISTRIBUTION WIDTH 18.2 % (11.6-17.2); WHITE BLOOD COUNT 8.9 TH/MM3 (4.0-11.0)
[2017-11-17 06:03] LABS: ALBUMIN 2.1 GM/DL (3.4-5.0); BICARBONATE 27.2 MEQ/L (21.0-32.0); CALCIUM 7.4 MG/DL (8.5-10.1); CALCIUM-PROTEIN CORRECTED 9.3 MG/DL (8.5-10.1); CREATININE 0.61 MG/DL (0.50-1.00); MAGNESIUM 1.8 MG/DL (1.5-2.5); PHOSPHORUS 1.2 MG/DL (2.5-4.9); TOTAL BILIRUBIN ADULT 12.4 MG/DL (0.2-1.0)
[2017-11-17] MEDS: PENTOXIFYLLINE 400 MG CONTROLLED RELEASE TAB PO SCH ×3 (06:14→20:50)
[2017-11-17] MEDS: AZTREONAM INJ 2,000 MG in SODIUM CHLORIDE 0.9% INJ 100 ML IV SCH ×3 (06:14→23:08)
[2017-11-17] MEDS: RESP: ALBUTEROL 2.5 MG/IPRATROPIUM 0.5 MG NEB (PRN) INH ×2 (06:34→22:12)
[2017-11-17] MEDS: CHLORHEXIDINE 0.12% (ORAL KIT) 15 ML CUP MT SCH ×2 (08:00→20:00)
[2017-11-17] MEDS ORDERED: PHYTONADIONE 5 MG TAB PO SCH (10:00)
[2017-11-17] MEDS ORDERED: PHYTONADIONE 5 MG/SWFI 5 ML ORAL SYR PO SCH (10:00)
[2017-11-17] MEDS: LACTULOSE SYRUP 20 GM/30 ML CUP PO SCH ×3 (10:19→17:58)
[2017-11-17] MEDS: PANTOPRAZOLE SOD 40 MG DELAYED RELEASE TAB PO SCH ×2 (10:19→20:49)
[2017-11-17] MEDS: THIAMINE HCL 100 MG TAB PO SCH (10:19)
--- NOTE | 2017-11-17 10:35 | HHI.GIFU ---
Subjective Remarks Pt resting in bed, family at bedside. Mother reports she is "coughing up clots. " (Tiffany Washington) Objective Vitals I&O Vital Signs Date Time Temp Pulse Resp B/P (MAP) Pulse Ox O2 Delivery O2 Flow Rate FiO2 11/17/17 08:00 97.6 87 14 106/58 (74) 98 11/17/17 06:36 99 11/17/17 04:18 98.7 80 18 110/58 (75) 99 11/17/17 00:06 99.1 11/16/17 23:56 99.2 75 19 108/59 (75) 98 11/16/17 22:30 80 11/16/17 20:00 98.5 84 21 106/60 (75) 95 11/16/17 16:00 84 11/16/17 16:00 98.4 84 26 106/63 (77) 97 11/16/17 12:00 87 11/16/17 12:00 97.8 87 20 111/59 (76) 98 I/O 11/16/17 11/16/17 11/16/17 11/17/17 11/17/17 11/17/17 07:00 15:00 23:00 07:00 15:00 23:00 Intake Total 400 ml 100 ml 100 ml 100 ml Output Total 1050 ml 1500 ml Balance -650 ml 100 ml 100 ml -1400 ml Intake Oral 400 ml 100 ml IV Total 100 ml 100 ml Output Urine Total 850 ml 1500 ml Stool Total 200 ml Laboratory Laboratory Tests Test 11/17/17 04:47 White Blood Count 8.9 Red Blood Count 2.54 Hemoglobin 8.2 Hematocrit 23.5 Mean Corpuscular Volume 92.6 Mean Corpuscular Hemoglobin 32.2 Mean Corpuscular Hemoglobin Concent 34.8 Red Cell Distribution Width 18.2 Platelet Count 88 Mean Platelet Volume 6.9 Neutrophils (%) (Auto) 79.5 Lymphocytes (%) (Auto) 6.8 Monocytes (%) (Auto) 10.3 Eosinophils (%) (Auto) 2.7 Basophils (%) (Auto) 0.7 Neutrophils # (Auto) 7.1 Lymphocytes # (Auto) 0.6 Monocytes # (Auto) 0.9 Eosinophils # (Auto) 0.2 Basophils # (Auto) 0.1 CBC Comment AUTO DIFF Differential Comment AUTO DIFF CONFIRMED Platelet Estimate LOW Platelet Morphology Comment NORMAL Prothrombin Time 20.0 Prothromb Time International Ratio 2.0 Blood Urea Nitrogen Creatinine 0.61 Random Glucose 100 Total Protein 4.0 Albumin 2.1 Calcium Level 7.4 Phosphorus Level 1.2 Magnesium Level 1.8 Alkaline Phosphatase 108 Aspartate Amino Transf (AST/SGOT) 136 Alanine Aminotransferase (ALT/SGPT) 143 Total Bilirubin 12.4 Sodium Level 141 Potassium Level 3.7 Chloride Level 108 Carbon Dioxide Level 27.2 Anion Gap 6 Estimat Glomerular Filtration Rate 108 Protein Corrected Calcium 9.3 Date/Time Source Procedure Growth Status 11/12/17 21:16 Blood Peripheral Aerobic Blood Culture - Preliminary NO GROWTH IN 4 DAYS Resulted 11/12/17 21:16 Blood Peripheral Anaerobic Blood Culture - Preliminary NO GROWTH IN 4 DAYS Resulted 11/12/17 16:19 Urine Catheterized Urine Urine Culture - Preliminary NO GROWTH IN 48 HOURS. Resulted Imaging Last Impressions Chest X-Ray 11/17/17 0600 Signed Impressions: Service Date/Time: Friday, November 17, 2017 03:25 - CONCLUSION: Interval extubation with worsening aeration Janusz Gooden MD Abdomen MRI 11/14/17 0000 Signed Impressions: Service Date/Time: Tuesday, November 14, 2017 13:50 - CONCLUSION: 1. No evidence of abnormal enhancing hepatic mass. 2. Cirrhosis of the liver, ascites, recanalization of the umbilical vein, and perigastric varices consistent with portal hypertension. 3. Small bilateral pleural effusions with adjacent compressive atelectasis. Gordon Klein MD Abdomen X-Ray 11/12/171951 Signed Impressions: Service Date/Time: Sunday, November 12, 2017 19:56 - CONCLUSION: NG tube tip is at the GE junction. Janusz Curtis MD Abdomen/Pelvis CT 11/12/17 0000 Signed Impressions: Service Date/Time: Sunday, November 12, 2017 22:00 - CONCLUSION: 1. Cirrhosis with small ascites and a recanalized umbilical vein with caput medusa. Possible mass of the right hepatic lobe and a followup nonemergent MRI of the abdomen with and without contrast is recommended. 2. Orogastric tube is coiled in the stomach. 3. No obstruction or acute inflammatory changes are seen of the gastrointestinal tract. 4. Atelectasis/infiltrate left lung base. Trace atelectasis right lung base. Janusz Curtis MD Physical Exam HEENT: Normocephalic; atraumatic; +icterus CHEST: Even/unlabored CARDIAC: RRR ABDOMEN: Distended, soft,diffuse TTP, bowel sounds active EXTREMITIES: Generalized edema SKIN: (+) jaundice COAL WEIGHER: lethargic (Tiffany Washington Tj BURNETTP) Assessment and Plan Plan Assessment: - Cirrhosis- secondary to ETOH. MELD-25 DF-41 Concern for possible mass of right hepatic lobe of the liver on CT MRI abdomen (11/14) --> No evidence of abnormal enhancing hepatic mass. Cirrhosis of the liver, ascites, recanalization of the umbilical vein, and perigastric varices consistent with portal HTN. Tumor markers: AFP-2.5 CEA-4.3 CA 19-9-13.5 [id number] - Anemia with reports of dark stool and coffee ground emesis on admission S/P EGD --> Class B esophagitis. Mild gastritis in the gastric antrum, some coffee grounds. No blood. Angiodysplastic lesion with bleeding was found in the 2nd part of the duodenum, cautery with complete hemostasis. S/P Colonoscopy --> Black stool spread throughout the colon and small pockets may interfere with the vision of small lesions. 1 cm polyp in the ascending colon removed by snare. 1 cm polyp in the sigmoid removed by snare. No sign of active bleeding. Could be from AVM in small bowel. Pathology - 2 adenomatous polyps. 11/13/2017 42-year-old lady with significant anemia questionable etiology upper endoscopy showed AVM, hemoglobin stable now, had a colonoscopy done today Patient also has cirrhosis most likely secondary to alcohol, severe elevation of the liver function tests including total bilirubin patient also has a possible mass in the liver and today her CA 125 came back elevated 11/14/17 lessening coffee ground output OGT. LFTs trending up. ETOH hepatitis vs liver mass vs shock liver? DF 49. MRI liver pending. HH stable. NH 70 11/15/17 decreasing coffee ground output. MRI showed cirrhosis, ascites, varices, portal HTN, no evidence mass. s/p extubation. HH stable. LFTs trending down. colon bx adenomatous polyp (11/16) Anemia- no obvious GIB- flexiseal with green/brown liquid stool. No longer has OG and no reports of emesis. H/H dropped some, hgb from 8.3 to 7.7 Cirrhosis-AST and ALT trending down. T bili remains elevated at 9.5. DF of 41 would likely benefit from steroids, however initial concern for sepsis pt is on 7 day course of Azactam with plans to repeat blood cultures after 7 days, initial blood cultures on 11/12 are preliminary negative. Will add Pentoxifylline Ammonia elevated at 70 on 11/13 no recheck, pt is on Lactulose Thrombocytopenia noted- platelets 97 Coagulopathy- INR 1.9 11/17/17 pt lethargic. transaminases improving, tbil is worsening. pt coughing up bloody clots per mother. HH stable thrombocytopenia worsening. Plan: consider replacing albumin cont Pentoxifylline Monitor labs Protonix 2gm low sodium Notify GI if active bleeding Pt will need capsule endoscopy outpatient pt seen by myself and Dr Gregg and this note is on his behalf (Tiffany Washington) Plan Patient was seen and examined, agree with above note, feeling better, still guarded prognosis, need to be of alcohol completely (Orville Gregg MD) Tiffany Washington Nov 17, 2017 10:35 Orville Gregg MD Nov 17, 2017 17:11
--- NOTE | 2017-11-17 14:22 | HHI.PR ---
Subjective Remarks Follow-up anasarca. Patient has no complaints has not been out of bed. Denies abdominal pain. Seen with sister. Discussed with nursing Objective Vitals Vital Signs Date Time Temp Pulse Resp B/P (MAP) Pulse Ox O2 Delivery O2 Flow Rate FiO2 11/17/17 12:30 98.2 79 16 98/53 (68) 98 11/17/17 08:00 78 11/17/17 08:00 97.6 87 14 106/58 (74) 98 11/17/17 06:36 99 11/17/17 04:18 98.7 80 18 110/58 (75) 99 11/17/17 00:06 99.1 11/16/17 23:56 99.2 75 19 108/59 (75) 98 11/16/17 22:30 80 11/16/17 20:00 98.5 84 21 106/60 (75) 95 11/16/17 16:00 84 11/16/17 16:00 98.4 84 26 106/63 (77) 97 I/O 11/16/17 11/16/17 11/16/17 11/17/17 11/17/17 11/17/17 07:00 15:00 23:00 07:00 15:00 23:00 Intake Total 400 ml 100 ml 100 ml 100 ml Output Total 1050 ml 1500 ml Balance -650 ml 100 ml 100 ml -1400 ml Intake Oral 400 ml 100 ml IV Total 100 ml 100 ml Output Urine Total 850 ml 1500 ml Stool Total 200 ml Result Diagram: 11/17/17 0447 11/17/17 0447 Imaging Last Impressions Chest X-Ray 11/17/17 0600 Signed Impressions: Service Date/Time: Friday, November 17, 2017 03:25 - CONCLUSION: Interval extubation with worsening aeration Janusz Gooden MD Abdomen MRI 11/14/17 0000 Signed Impressions: Service Date/Time: Tuesday, November 14, 2017 13:50 - CONCLUSION: 1. No evidence of abnormal enhancing hepatic mass. 2. Cirrhosis of the liver, ascites, recanalization of the umbilical vein, and perigastric varices consistent with portal hypertension. 3. Small bilateral pleural effusions with adjacent compressive atelectasis. Gordon Klein MD Abdomen X-Ray 11/12/171951 Signed Impressions: Service Date/Time: Sunday, November 12, 2017 19:56 - CONCLUSION: NG tube tip is at the GE junction. Janusz Curtis MD Abdomen/Pelvis CT 11/12/17 0000 Signed Impressions: Service Date/Time: Sunday, November 12, 2017 22:00 - CONCLUSION: 1. Cirrhosis with small ascites and a recanalized umbilical vein with caput medusa. Possible mass of the right hepatic lobe and a followup nonemergent MRI of the abdomen with and without contrast is recommended. 2. Orogastric tube is coiled in the stomach. 3. No obstruction or acute inflammatory changes are seen of the gastrointestinal tract. 4. Atelectasis/infiltrate left lung base. Trace atelectasis right lung base. Janusz Curtis MD Objective Remarks GENERAL: Well-developed well-nourished pale and jaundiced SKIN: Warm/dry. CARDIOVASCULAR: S1-S2 normal. No murmur appreciated. RESPIRATORY: Clear to auscultation. Breath sounds equal bilaterally, diminished at the bases GASTROINTESTINAL: Abdomen soft, non-tender, nondistended. Stretch griggs noted. No fluid thrill MUSCULOSKELETAL: Extremities are poorly perfused. Anasarca noted NEUROLOGICAL: Alert awake, follows commands, Moving all extremities. Nonfocal exam Procedures Right IJ central line, right femoral artery line, EGD, colonoscopy A/P Problem List: (1) Hemorrhagic shock ICD Code: R57.8 - Other shock (2) Upper gastrointestinal bleed ICD Code: K92.2 - Gastrointestinal hemorrhage, unspecified (3) Severe anemia ICD Code: D64.9 - Anemia, unspecified Status: Acute (4) Metabolic acidosis ICD Code: E87.2 - Acidosis Status: Acute (5) Lactic acidemia ICD Code: E87.2 - Acidosis (6) Coagulopathy ICD Code: D68.9 - Coagulation defect, unspecified (7) Encephalopathy ICD Code: G93.40 - Encephalopathy, unspecified Status: Acute (8) Hyponatremia ICD Code: E87.1 - Hypo-osmolality and hyponatremia Status: Acute (9) Hypocalcemia ICD Code: E83.51 - Hypocalcemia Status: Acute (10) Acute kidney failure ICD Code: N17.9 - Acute kidney failure, unspecified (11) Liver cirrhosis ICD Code: K74.60 - Unspecified cirrhosis of liver (12) Alcohol dependence ICD Code: F10.20 - Alcohol dependence, uncomplicated Assessment and Plan NEURO: Hepatic encephalopathy -Minimize sedation -Supplement thiamine -Lactulose 30 mL 3 times daily RESP: Acute respiratory failure-resolved -Intubated and placed on mechanical ventilation on admission 11/12/17, extubated -DuoNeb every 6 hours as needed CV: Hemorrhagic shock-resolved Lactic acidosis, severe-resolved -IV Lasix 40 gm x1 11/15,a nd 11/16 -Levophed off since yesterday -Lactic acid, with aggressive resuscitation down from 24.3 to 3. GI/HEME: GI bleed Angiodysplasia of the second part of duodenum Liver cirrhosis Probable right hepatic mass Severe anemia requiring transfusion Coagulopathy Anasarca -Protonix 40 mg iv q12, off otreotide infusions -Emergent EGD by Dr. Roche 11/12 showed angiodysplasia of the second part of duodenum, status post cauterization with complete hemostasis -Colonoscopy by Dr. Figueroa in 11/13/2017: Black stool throughout the colon. 2 colon polyps removed -Bleeding most likely from small bowel AVMs, capsule endoscopy recommended as outpatient -s/p 6 units PRBC, 2 FFP, 1 platelet. -Continue correction of coagulopathy 5 mg vitamin K po for the next 3 days -Trend H&H, INR -MRI of the liver to rule out hepatoma-no evidence of hepatoma -CA 125 elevated at 60, may be nonspecific. Plan outpatient follow-up -Start low-dose IV Lasix with potassium supplementation. Ensure consider IV albumin : Acute kidney injury/prerenal Possible hepatorenal syndrome -Secondary to severe dehydration and ATN, now resolved -Dc Ward catheter , may use female cath -Creatinine improved with aggressive resuscitation ID: Leukocytosis Probable sepsis -complete 7 day course of Azactam 11/19. DC Flagyl -F/u blood culture, urine culture-neg to date -SBP prophylaxis provided by above antibiotics ENDO: -Electrolyte replacement per protocol PROPH: -Bilateral lower extremity SCDs. Chemical DVT prophylaxis is contraindicated, continue Protonix Discharge Planning Needs rehab and complete ETOH cessation Problem Qualifiers (1) Liver cirrhosis: (2) Alcohol dependence: Callum Germain MD Nov 17, 2017 14:22
[2017-11-17] MEDS: PHYTONADIONE 2.5 MG/SWFI 2.5 ML ORAL SYR PO SCH (15:44)
--- NOTE | 2017-11-17 19:03 | PD.CONS ---
History of Present Illness Service Transplant Surgery Consult Requested By Dr Germain Reason for Consult Consideration for liver transplant Primary Care Physician No Primary Care Physician Diagnoses: History of Present Illness 42 yof seen in [place] ED on 11/12/17 with dark tarry stools and coffee ground emesis. Reportedly started feeling unwell about a week prior. According to her mom she began looking jaundiced about 2 weeks prior, then progressively seemed to get weaker and began having more frequent falls and even was crawling at one point, prior to being seen in the ED. In the Ed, her hgb was 3.4. Na 125 , bicarb 10, anion gap 32, BUN 80 and creat 1.9. She was given 1 unit PRBC, I thiamine, zofran; started on a protonix drip and octreotide drip, and then transferred to [facility]. Her lactic acid was noted to be 25 at [place]. She was intubated and resuscitated. She ended up getting total of 6 units PRBC , 3 FFP, and 1 pack platelets. she had an EGD on 11/12/17 which showed class B esophagitis, mild antral gastritis, a "medium sized" bleeding angiodysplastic lesion in the second portion of the duodenum. This was cauterized with good hemostasis noted. She also had a noncontrast abd/pelvis ct scan done on 11/12/17 which showed cirrhosis, small amount of ascites, recanalized umbilical vein and ? 5.2 cm right lobe lesion. On 11/13/17, underwent colonoscopy with 1 cm polyp noted in ascending colon and 1 cm polyp in sigmoid colon (subsequent path c/w adenomatous polyps). On 11/14/17. Abd MRI was c/w liver cirrhosis, recanalization of umbilical vein and perigastric varices (c/w portal hypertension). No liver mass was noted. No splenomegaly, and small bilateral pleural effusions. Her metabolic acidosis progressively improved and she was off pressors and had a stable hgb by 11/15/17. Her CXR today did show some slightly worse moderate bilateral perihilar and basilar alveolar infiltrates. Labs/ imaging studies reviewed. Current MELD = 24 Review of Systems Constitutional: COMPLAINS OF: Fatigue Gastrointestinal: COMPLAINS OF: Abdominal pain (improving) Past Family Social History Allergies: Coded Allergies: Penicillins (Verified Allergy, Intermediate, HIVES, 11/12/17) Past Medical History laennecs cirrhosis Past Surgical History vaginal hysterectomy (endometriosis), left wrist surgery x 2 Family History father had throat cancer (was [place] vet and a smoker) - ? 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 Would also drink shots at times. Reportedly had no etoh for about 18 months , then had a beer last month. Smoked 1 pack of cigarettes every 3 days for about 30 years. Quit last week. Denies illicit drug use. Physical Exam Vital Signs Vital Signs Date Time Temp Pulse Resp B/P (MAP) Pulse Ox O2 Delivery O2 Flow Rate FiO2 11/17/17 16:21 99.6 79 18 105/58 (74) 98 11/17/17 12:30 98.2 79 16 98/53 (68) 98 11/17/17 08:00 78 11/17/17 08:00 97.6 87 14 106/58 (74) 98 11/17/17 06:36 99 11/17/17 04:18 98.7 80 18 110/58 (75) 99 11/17/17 00:06 99.1 11/16/17 23:56 99.2 75 19 108/59 (75) 98 11/16/17 22:30 80 11/16/17 20:00 98.5 84 21 106/60 (75) 95 Physical Exam GENERAL: This is a well-nourished, well-developed patient, in no apparent distress. SKIN: No rashes, ecchymoses or lesions. Cool and dry. HEAD: Atraumatic. Normocephalic. No temporal or scalp tenderness. EYES: Pupils equal round and reactive. Extraocular motions intact. Scleral icterus. No injection or drainage. ENT: Nose without bleeding, purulent drainage or septal hematoma. Throat without erythema, tonsillar hypertrophy or exudate. Uvula midline. Airway patent. NECK: Trachea midline. No JVD or lymphadenopathy. Supple, nontender, no meningeal signs. CARDIOVASCULAR: Regular rate and rhythm without murmurs, gallops, or rubs. No carotid bruits. RESPIRATORY: Clear to auscultation. Breath sounds equal bilaterally. No wheezes , rales, or rhonchi. GASTROINTESTINAL: Abdomen soft, non-tender, nondistended. No hepato-splenomegaly , or palpable masses. No guarding. Easily reducible approx 1 cm umbilical hernia. PROJECTION PRINTER/RECT: No inguinal hernias MUSCULOSKELETAL: Extremities without clubbing, cyanosis, or edema. No joint tenderness, effusion, or edema noted. No calf tenderness. Negative Homans sign bilaterally. Palpable femoral/ DP/PT pulses. 4+ peripheral edema. Bilateral hip edema. c/w mild -mod anasarca NEUROLOGICAL: Awake and alert. Cranial nerves II through XII intact. Motor and sensory grossly within normal limits. Five out of 5 muscle strength in all muscle groups. Normal speech. Laboratory Laboratory Tests Test 11/17/17 04:47 White Blood Count 8.9 Red Blood Count 2.54 Hemoglobin 8.2 Hematocrit 23.5 Mean Corpuscular Volume 92.6 Mean Corpuscular Hemoglobin 32.2 Mean Corpuscular Hemoglobin Concent 34.8 Red Cell Distribution Width 18.2 Platelet Count 88 Mean Platelet Volume 6.9 Neutrophils (%) (Auto) 79.5 Lymphocytes (%) (Auto) 6.8 Monocytes (%) (Auto) 10.3 Eosinophils (%) (Auto) 2.7 Basophils (%) (Auto) 0.7 Neutrophils # (Auto) 7.1 Lymphocytes # (Auto) 0.6 Monocytes # (Auto) 0.9 Eosinophils # (Auto) 0.2 Basophils # (Auto) 0.1 CBC Comment AUTO DIFF Differential Comment AUTO DIFF CONFIRMED Platelet Estimate LOW Platelet Morphology Comment NORMAL Prothrombin Time 20.0 Prothromb Time International Ratio 2.0 Blood Urea Nitrogen Creatinine 0.61 Random Glucose 100 Total Protein 4.0 Albumin 2.1 Calcium Level 7.4 Phosphorus Level 1.2 Magnesium Level 1.8 Alkaline Phosphatase 108 Aspartate Amino Transf (AST/SGOT) 136 Alanine Aminotransferase (ALT/SGPT) 143 Total Bilirubin 12.4 Sodium Level 141 Potassium Level 3.7 Chloride Level 108 Carbon Dioxide Level 27.2 Anion Gap 6 Estimat Glomerular Filtration Rate 108 Protein Corrected Calcium 9.3 Date/Time Source Procedure Growth Status 11/12/17 21:16 Blood Peripheral Aerobic Blood Culture - Final NO GROWTH IN 5 DAYS Complete 11/12/17 21:16 Blood Peripheral Anaerobic Blood Culture - Final NO GROWTH IN 5 DAYS Complete 11/12/17 16:19 Urine Catheterized Urine Urine Culture - Preliminary NO GROWTH IN 48 HOURS. Resulted Result Diagram: 11/17/17 0447 11/17/17 0447 Assessment and Plan Problem List: (1) Liver cirrhosis ICD Codes: K74.60 - Unspecified cirrhosis of liver (2) Alcohol dependence ICD Codes: F10.20 - Alcohol dependence, uncomplicated (3) GI bleed ICD Codes: K92.2 - Gastrointestinal hemorrhage, unspecified Status: Acute (4) Coagulopathy ICD Codes: D68.9 - Coagulation defect, unspecified Assessment and Plan 42 yof with history of alcohol abuse. Presents with alcoholic cirrhosis and acute GI bleed due to duodenal ulcer. Subsequently seemed to have developed a shock state which her cirrhotic liver was unable to tolerate well. Her transaminases peaked and now seem to be improving. Her bilirubin continues to rise (? due to cholestasis). But in addition to her other improving liver numbers her mentation and renal function seem to be improving. Anticipate that she will continue to improve. Would continue to monitor closely for now. Patient reportedly was just relocated to [place] from [place] by her mother. Her mother believes that someone at the [facility] began the medicaid process, but is unsure. Discussed with the RN that we need to have the outsole caser, help them with applying for insurance (if not already in process) . In addition, she will need to undergo substance abuse rehab counseling (SARP) . Will have the outsole caser assist the patient and her mother with identifying and starting this. Would need to participate for at least 3-6 months, then can be evaluated in [place] for consideration for possible liver transplant. The current medical regimen that was initiated by the blocker and polisher gold wheel/ hospitalist seem reasonable. Would add a multivitamin and consider lasix and aldactone as needed, otherwise, no other new recommendations at this time. Case was discussed with Dr Francisco Haddad and plan formulated with him. Problem Qualifiers (1) Liver cirrhosis: (2) Alcohol dependence: Swapnil Hogan Jr., MD Nov 17, 2017 19:03
[2017-11-17] MEDS: POTASSIUM CHLORIDE 20 MEQ CONTROLLED RELEASE TAB PO SCH (20:49)
[2017-11-17] MEDS ORDERED: FUROSEMIDE 20 MG/2 ML VIAL IV PUSH ONE (22:15)
[2017-11-17] MEDS: SODIUM CHLORIDE 0.9% FLUSH 10 ML FLUSH IV FLUSH PRN ×2 (22:16→23:08)
[2017-11-18] VITALS (11 sets, daily range): BP systolic 100–112; BP diastolic 52–72; PULSE 82–94; RESP 20–49; TEMP 98.2–99.5; O2SAT 92–100
[2017-11-18] MEDS: CHLORHEXIDINE GLUCONATE 2 % 1 PACK (2 CLOTHS) TOP SCH (01:36)
[2017-11-18] MEDS: PENTOXIFYLLINE 400 MG CONTROLLED RELEASE TAB PO SCH ×3 (05:52→22:00)
[2017-11-18] MEDS: AZTREONAM INJ 2,000 MG in SODIUM CHLORIDE 0.9% INJ 100 ML IV SCH ×2 (05:53→16:30)
[2017-11-18] MEDS: RESP: ALBUTEROL 2.5 MG/IPRATROPIUM 0.5 MG NEB (PRN) INH (06:05)
[2017-11-18 06:07] LABS: INTERNATIONAL NORMALIZED RATIO 1.9 RATIO; PROTHROMBIN TIME - PATIENT 19.1 SEC (9.8-11.6)
[2017-11-18 06:30] LABS: ALBUMIN 2.2 GM/DL (3.4-5.0); ALT (GPT) 133 U/L (10-53); AST (GOT) 117 U/L (15-37); BICARBONATE 25.4 MEQ/L (21.0-32.0); BLOOD UREA NITROGEN 12 MG/DL (7-18); CALCIUM 7.6 MG/DL (8.5-10.1); CHLORIDE 106 MEQ/L (98-107); GLOMERULAR FILTRATION RATE 92 ML/MIN (>89); GLUCOSE,RANDOM 96 MG/DL (74-106); SODIUM (NA) 139 MEQ/L (136-145)
[2017-11-18 06:32] LABS: ALKALINE PHOSPHATASE 129 U/L (45-117); TOTAL PROTEIN 4.6 GM/DL (6.4-8.2)
[2017-11-18 06:43] LABS: AUTOMATED NEUTROPHIL # 10.4 TH/MM3 (1.8-7.7); BASOPHIL # 0.1 TH/MM3 (0-0.2); BASOPHIL % 0.5 % (0.0-2.0); EOSINOPHIL # 0.2 TH/MM3 (0-0.4); EOSINOPHIL % 1.2 % (0.0-4.0); HEMATOCRIT 27.2 % (35.0-46.0); HEMOGLOBIN 9.2 GM/DL (11.6-15.3); LYMPHOCYTE # 0.9 TH/MM3 (1.0-4.8); MEAN CELL VOLUME 93.6 FL (80.0-100.0); MEAN CORPUSCULAR HEMOGLOBIN 31.8 PG (27.0-34.0); MEAN PLATELET VOLUME 7.2 FL (7.0-11.0); MONO % 11.3 % (0.0-8.0); MONOCYTE # 1.5 TH/MM3 (0-0.9); PLATELET COUNT 122 TH/MM3 (150-450); RED CELL DISTRIBUTION WIDTH 18.5 % (11.6-17.2)
[2017-11-18] MEDS: CHLORHEXIDINE 0.12% (ORAL KIT) 15 ML CUP MT SCH ×2 (08:00→20:00)
[2017-11-18] MEDS ORDERED: FUROSEMIDE 20 MG/2 ML VIAL IV PUSH SCH (09:00)
[2017-11-18] MEDS: NITROGLYCERIN 0.4 MG SL 25 TABS/BTL SL PRN ×2 (09:17→09:30)
--- NOTE | 2017-11-18 09:29 | HHI.PR ---
Subjective Remarks Follow-up hypoxia. I was alerted by nurse patient because of worsening respiratory status. Patient complains of intermittent retrosternal sharp pain associated with shortness of breath and productive cough. Seen with son and mother. Objective Vitals Vital Signs Date Time Temp Pulse Resp B/P (MAP) Pulse Ox O2 Delivery O2 Flow Rate FiO2 11/18/17 08:00 98.4 94 21 100/52 (68) 95 11/18/17 04:00 98.2 91 20 112/58 (76) 92 11/18/17 00:00 99.5 94 20 105/57 (73) 92 11/17/17 21:06 93 11/17/17 20:00 92 11/17/17 20:00 99.1 82 22 105/57 (73) 97 11/17/17 19:58 95 Nasal Cannula 6.00 11/17/17 16:21 99.6 79 18 105/58 (74) 98 11/17/17 16:00 80 11/17/17 12:30 98.2 79 16 98/53 (68) 98 11/17/17 12:00 78 I/O 11/17/17 11/17/17 11/17/17 11/18/17 11/18/17 11/18/17 07:00 15:00 23:00 07:00 15:00 23:00 Intake Total 100 ml 780 ml 360 ml Output Total 1500 ml 700 ml 600 ml Balance -1400 ml 80 ml -240 ml Intake Oral 100 ml 780 ml 360 ml Output Urine Total 1500 ml 600 ml 600 ml Stool Total 100 ml # Bowel Movements 1 Result Diagram: 11/18/17 0542 11/18/17 0542 Imaging Last Impressions Chest X-Ray 11/18/17 0000 Signed Impressions: Service Date/Time: Saturday, November 18, 2017 09:04 - CONCLUSION: Increasing airspace disease both lungs. Sergio Otoole MD FACR Abdomen MRI 11/14/17 0000 Signed Impressions: Service Date/Time: Tuesday, November 14, 2017 13:50 - CONCLUSION: 1. No evidence of abnormal enhancing hepatic mass. 2. Cirrhosis of the liver, ascites, recanalization of the umbilical vein, and perigastric varices consistent with portal hypertension. 3. Small bilateral pleural effusions with adjacent compressive atelectasis. Gordon Klein MD Abdomen X-Ray 11/12/17 195 Signed Impressions: Service Date/Time: Sunday, November 12, 2017 19:56 - CONCLUSION: NG tube tip is at the GE junction. Janusz Curtis MD Abdomen/Pelvis CT 11/12/17 0000 Signed Impressions: Service Date/Time: Sunday, November 12, 2017 22:00 - CONCLUSION: 1. Cirrhosis with small ascites and a recanalized umbilical vein with caput medusa. Possible mass of the right hepatic lobe and a followup nonemergent MRI of the abdomen with and without contrast is recommended. 2. Orogastric tube is coiled in the stomach. 3. No obstruction or acute inflammatory changes are seen of the gastrointestinal tract. 4. Atelectasis/infiltrate left lung base. Trace atelectasis right lung base. Janusz Curtis MD Objective Remarks GENERAL: Well-developed well-nourished pale and jaundiced in respiratory distress on nonrebreather SKIN: Warm/dry. CARDIOVASCULAR: S1-S2 normal. No murmur appreciated. RESPIRATORY: Breath sounds equal bilaterally, diminished at the bases with scattered rhonchi/crackles GASTROINTESTINAL: Abdomen soft, non-tender, nondistended. Stretch griggs noted. No fluid thrill MUSCULOSKELETAL: Extremities are poorly perfused. Anasarca noted NEUROLOGICAL: Alert awake, follows commands, Moving all extremities. Nonfocal exam Procedures Right IJ central line, right femoral artery line, EGD, colonoscopy A/P Problem List: (1) Hemorrhagic shock ICD Code: R57.8 - Other shock (2) Upper gastrointestinal bleed ICD Code: K92.2 - Gastrointestinal hemorrhage, unspecified (3) Severe anemia ICD Code: D64.9 - Anemia, unspecified Status: Acute (4) Metabolic acidosis ICD Code: E87.2 - Acidosis Status: Acute (5) Lactic acidemia ICD Code: E87.2 - Acidosis (6) Coagulopathy ICD Code: D68.9 - Coagulation defect, unspecified (7) Encephalopathy ICD Code: G93.40 - Encephalopathy, unspecified Status: Acute (8) Hyponatremia ICD Code: E87.1 - Hypo-osmolality and hyponatremia Status: Acute (9) Hypocalcemia ICD Code: E83.51 - Hypocalcemia Status: Acute (10) Acute kidney failure ICD Code: N17.9 - Acute kidney failure, unspecified (11) Liver cirrhosis ICD Code: K74.60 - Unspecified cirrhosis of liver (12) Alcohol dependence ICD Code: F10.20 - Alcohol dependence, uncomplicated Assessment and Plan NEURO: Hepatic encephalopathy -Minimize sedation -Supplement thiamine -Lactulose 30 mL 3 times daily RESP: Acute respiratory failure-recurrent -Now requiring nonrebreather obtain stat ABG, chest x-ray and d-dimer. DDx HAP with leukocytosis, PE , hepatopulmonary syndrome. May need intubation will consult critical care discussed with Dr. Miner -Intubated and placed on mechanical ventilation on admission 11/12/17, extubated -DuoNeb every 6 hours and as needed CV: Hemorrhagic shock-resolved Lactic acidosis, severe-resolved -IV Lasix 40 gm x1 11/15,a nd 11/16. Restarted IV Lasix yesterday we will continue -Levophed off since yesterday -Lactic acid, with aggressive resuscitation down from 24.3 to 3. GI/HEME: GI bleed Angiodysplasia of the second part of duodenum Liver cirrhosis Probable right hepatic mass Severe anemia requiring transfusion Coagulopathy Anasarca -Protonix 40 mg q12, off otreotide infusions -Emergent EGD by Dr. Roche 11/12 showed angiodysplasia of the second part of duodenum, status post cauterization with complete hemostasis -Colonoscopy by Dr. Figueroa in 11/13/2017: Black stool throughout the colon. 2 colon polyps removed -Bleeding most likely from small bowel AVMs, capsule endoscopy recommended as outpatient -s/p 6 units PRBC, 2 FFP, 1 platelet. -Continue correction of coagulopathy 5 mg vitamin K po for the next 3 days -Trend H&H, INR -MRI of the liver to rule out hepatoma-no evidence of hepatoma -CA 125 elevated at 60, may be nonspecific. Plan outpatient follow-up -Start low-dose IV Lasix with potassium supplementation. Ensure consider IV albumin : Acute kidney injury/prerenal Possible hepatorenal syndrome -Secondary to severe dehydration and ATN, now resolved -Dc Ward catheter , may use female cath -Creatinine improved with aggressive resuscitation ID: Leukocytosis Sepsis -complete 7 day course of Azactam 11/19. DC Flagyl -F/u blood culture, urine culture-neg to date -SBP prophylaxis provided by above antibiotics -With new leukocytosis, will add vancomycin after obtaining repeat blood cultures 2. Repeat urinalysis ENDO: -Electrolyte replacement per protocol PROPH: -Bilateral lower extremity SCDs. Chemical DVT prophylaxis is contraindicated, continue Protonix Discharge Planning Patient's condition has worsened and at this time she is critically ill. We will transfer to ICU for close monitoring high likelihood of decompensation requiring intubation and mechanical ventilation Problem Qualifiers (1) Liver cirrhosis: (2) Alcohol dependence: Callum Germain MD Nov 18, 2017 09:29
[2017-11-18] MEDS ORDERED: RESP: ALBUTEROL 2.5 MG/3 ML NEB (PRN) NEB (09:30)
--- NOTE | 2017-11-18 09:34 | RADRPT ---
EXAM DATE/TIME: 11/18/2017 09:04 [facility] COMPARISON: CHEST SINGLE AP, November 17, 2017, 3:25. INDICATIONS : Chest pain. MEDICAL HISTORY : Cirrhosis. SURGICAL HISTORY : Hysterectomy. ENCOUNTER: Subsequent ACUITY: 1 week PAIN SCORE: Non-responsive. LOCATION: Bilateral chest FINDINGS: Patchy airspace disease in both lungs increased in the intervals. Heart remains enlarged. No pleura l effusion. The portion of the bony skeleton visualized is unremarkable. CONCLUSION: Increasing airspace disease both lungs. Sergio Otoole MD FACR on November 18, 2017 at 9:31 Board Certified Radiologist. This report was verified electronically.
[2017-11-18] MEDS: LACTULOSE SYRUP 20 GM/30 ML CUP PO SCH ×5 (09:38→22:12)
[2017-11-18] MEDS: THIAMINE HCL 100 MG TAB PO SCH (09:38)
[2017-11-18] MEDS: MULTIVITAMIN TAB PO SCH (09:38)
[2017-11-18] MEDS: PANTOPRAZOLE SOD 40 MG DELAYED RELEASE TAB PO SCH ×2 (09:38→22:10)
[2017-11-18] MEDS: POTASSIUM CHLORIDE 20 MEQ CONTROLLED RELEASE TAB PO SCH ×2 (09:38→22:11)
[2017-11-18] MEDS ORDERED: ALBUMIN 25% INJ 100 ML IV ONE (09:45)
[2017-11-18 09:59] LABS: TROPONIN I LESS THAN 0.02 NG/ML (0.02-0.05)
[2017-11-18] MEDS: SPIRONOLACTONE 25 MG TAB PO SCH (10:13)
[2017-11-18] MEDS: FUROSEMIDE 40 MG/4 ML VIAL IV PUSH SCH ×3 (10:13→19:30)
[2017-11-18] MEDS: RESP: ALBUTEROL 2.5 MG/IPRATROPIUM 0.5 MG NEB (SCH) NEB ×3 (12:43→21:51)
--- NOTE | 2017-11-18 14:39 | HHI.GIFU ---
Subjective Remarks Patient laying in bed, she has V mask on her, she is short of breath, she is more lethargic today, accompanied by her mother, seems to be worse today and complaining of some abdominal discomfort and chest discomfort Objective Vitals I&O Vital Signs Date Time Temp Pulse Resp B/P (MAP) Pulse Ox O2 Delivery O2 Flow Rate FiO2 11/18/17 12:44 100 Non-Rebreather 15.00 11/18/17 12:38 99.1 84 49 107/61 (76) 99 11/18/17 09:33 98 Non-Rebreather 12.00 11/18/17 08:00 98.4 94 21 100/52 (68) 95 11/18/17 04:00 98.2 91 20 112/58 (76) 92 11/18/17 00:00 99.5 94 20 105/57 (73) 92 11/17/17 21:06 93 11/17/17 20:00 92 11/17/17 20:00 99.1 82 22 105/57 (73) 97 11/17/17 19:58 95 Nasal Cannula 6.00 11/17/17 16:21 99.6 79 18 105/58 (74) 98 11/17/17 16:00 80 I/O 11/17/17 11/17/17 11/17/17 11/18/17 11/18/17 11/18/17 07:00 15:00 23:00 07:00 15:00 23:00 Intake Total 100 ml 780 ml 360 ml Output Total 1500 ml 700 ml 600 ml Balance -1400 ml 80 ml -240 ml Intake Oral 100 ml 780 ml 360 ml Output Urine Total 1500 ml 600 ml 600 ml Stool Total 100 ml # Bowel Movements 1 Laboratory Laboratory Tests Test 11/18/17 05:42 11/18/17 09:20 11/18/17 09:23 White Blood Count 13.0 Red Blood Count 2.90 Hemoglobin 9.2 Hematocrit 27.2 Mean Corpuscular Volume 93.6 Mean Corpuscular Hemoglobin 31.8 Mean Corpuscular Hemoglobin Concent 34.0 Red Cell Distribution Width 18.5 Platelet Count 122 Mean Platelet Volume 7.2 Neutrophils (%) (Auto) 80.0 Lymphocytes (%) (Auto) 7.0 Monocytes (%) (Auto) 11.3 Eosinophils (%) (Auto) 1.2 Basophils (%) (Auto) 0.5 Neutrophils # (Auto) 10.4 Lymphocytes # (Auto) 0.9 Monocytes # (Auto) 1.5 Eosinophils # (Auto) 0.2 Basophils # (Auto) 0.1 CBC Comment DIFF FINAL Differential Comment Prothrombin Time 19.1 Prothromb Time International Ratio 1.9 Blood Urea Nitrogen 12 Creatinine 0.70 Random Glucose 96 Total Protein 4.6 Albumin 2.2 Calcium Level 7.6 Magnesium Level 2.0 Alkaline Phosphatase 129 Aspartate Amino Transf (AST/SGOT) 117 Alanine Aminotransferase (ALT/SGPT) 133 Total Bilirubin 14.0 Sodium Level 139 Potassium Level 3.9 Chloride Level 106 Carbon Dioxide Level 25.4 Anion Gap 8 Estimat Glomerular Filtration Rate 92 Blood Gas Puncture Site LT RADIAL Blood Gas Patient Temperature 98.6 Blood Gas HCO3 25 Blood Gas Base Excess 2.1 Blood Gas Oxygen Saturation 94 Arterial Blood pH 7.49 Arterial Blood Partial Pressure CO2 34 Arterial Blood Partial Pressure O2 76 Arterial Blood Oxygen Content 11.1 Arterial Blood Carboxyhemoglobin 2.3 Arterial Blood Methemoglobin 0.7 Blood Gas Hemoglobin 8.3 Oxygen Delivery Device NRB Blood Gas Liter Flow 12 Total Creatine Kinase 62 Troponin I LESS THAN 0.02 Lipase 486 D-Dimer Quantitative (PE/DVT) 5.45 Date/Time Source Procedure Growth Status 11/12/17 21:16 Blood Peripheral Aerobic Blood Culture - Final NO GROWTH IN 5 DAYS Complete 11/12/17 21:16 Blood Peripheral Anaerobic Blood Culture - Final NO GROWTH IN 5 DAYS Complete 11/18/17 10:15 Sputum Expectorated Sputum Gram Stain - Final Resulted 11/18/17 10:15 Sputum Expectorated Sputum Sputum Culture Pending Resulted 11/12/17 16:19 Urine Catheterized Urine Urine Culture - Preliminary NO GROWTH IN 48 HOURS. Resulted Physical Exam HEENT: Normocephalic; atraumatic; +icterus using a nonrebreather mask CHEST: Even/unlabored CARDIAC: RRR ABDOMEN: Distended, soft,diffuse TTP, bowel sounds active EXTREMITIES: Generalized edema SKIN: (+) jaundice MANAGER EXPORT: lethargic Assessment and Plan Plan Patient was seen and examined, Assessment and Plan Plan Assessment: - Cirrhosis- secondary to ETOH. MELD-25 DF-41 Concern for possible mass of right hepatic lobe of the liver on CT MRI abdomen (11/14) --> No evidence of abnormal enhancing hepatic mass. Cirrhosis of the liver, ascites, recanalization of the umbilical vein, and perigastric varices consistent with portal HTN. Tumor markers: AFP-2.5 CEA-4.3 CA 19-9-13.5 [id number] - Anemia with reports of dark stool and coffee ground emesis on admission S/P EGD --> Class B esophagitis. Mild gastritis in the gastric antrum, some coffee grounds. No blood. Angiodysplastic lesion with bleeding was found in the 2nd part of the duodenum, cautery with complete hemostasis. S/P Colonoscopy --> Black stool spread throughout the colon and small pockets may interfere with the vision of small lesions. 1 cm polyp in the ascending colon removed by snare. 1 cm polyp in the sigmoid removed by snare. No sign of active bleeding. Could be from AVM in small bowel. Pathology - 2 adenomatous polyps. 11/13/2017 42-year-old lady with significant anemia questionable etiology upper endoscopy showed AVM, hemoglobin stable now, had a colonoscopy done today Patient also has cirrhosis most likely secondary to alcohol, severe elevation of the liver function tests including total bilirubin patient also has a possible mass in the liver and today her CA 125 came back elevated 11/14/17 lessening coffee ground output OGT. LFTs trending up. ETOH hepatitis vs liver mass vs shock liver? DF 49. MRI liver pending. HH stable. NH 70 11/15/17 decreasing coffee ground output. MRI showed cirrhosis, ascites, varices, portal HTN, no evidence mass. s/p extubation. HH stable. LFTs trending down. colon bx adenomatous polyp (11/16) Anemia- no obvious GIB- flexiseal with green/brown liquid stool. No longer has OG and no reports of emesis. H/H dropped some, hgb from 8.3 to 7.7 Cirrhosis-AST and ALT trending down. T bili remains elevated at 9.5. DF of 41 would likely benefit from steroids, however initial concern for sepsis pt is on 7 day course of Azactam with plans to repeat blood cultures after 7 days, initial blood cultures on 11/12 are preliminary negative. Will add Pentoxifylline Ammonia elevated at 70 on 11/13 no recheck, pt is on Lactulose Thrombocytopenia noted- platelets 97 Coagulopathy- INR 1.9 11/17/17 pt lethargic. transaminases improving, tbil is worsening. pt coughing up bloody clots per mother. HH stable thrombocytopenia worsening. 11/18/2017 patient is more lethargic today on nonrebreather mask, mild elevation of her white count she had some chest discomfort, and increase in her liver function test Need to rule out infectious process, could be atelectasis related causing her shortness of breath and elevated white blood cells Plan: consider replacing albumin cont Pentoxifylline Monitor labs Protonix 2gm low sodium Notify GI if active bleeding Is already on antibiotics Pt will need capsule endoscopy outpatient Had a discussion with her mom and patient has guarded prognosis Orville Gregg MD Nov 18, 2017 14:39
[2017-11-18] MEDS: PROPRANOLOL HCL 10 MG TAB PO SCH ×2 (14:52→22:11)
[2017-11-18] MEDS: PHYTONADIONE 2.5 MG/SWFI 2.5 ML ORAL SYR PO SCH ×2 (15:00→16:32)
[2017-11-18] MEDS ORDERED: Vancomycin Consult Pharmacy 1 EA OTHER SCH (15:15)
--- NOTE | 2017-11-18 15:34 | HHI.PR ---
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 Objective Vital Signs Date Time Temp Pulse Resp B/P (MAP) Pulse Ox O2 Delivery O2 Flow Rate FiO2 11/18/17 12:44 100 Non-Rebreather 15.00 11/18/17 12:38 99.1 84 49 107/61 (76) 99 11/18/17 09:33 98 Non-Rebreather 12.00 11/18/17 08:00 98.4 94 21 100/52 (68) 95 11/18/17 04:00 98.2 91 20 112/58 (76) 92 11/18/17 00:00 99.5 94 20 105/57 (73) 92 11/17/17 21:06 93 11/17/17 20:00 92 11/17/17 20:00 99.1 82 22 105/57 (73) 97 11/17/17 19:58 95 Nasal Cannula 6.00 11/17/17 16:21 99.6 79 18 105/58 (74) 98 11/17/17 16:00 80 I/O 11/17/17 11/17/17 11/17/17 11/18/17 11/18/17 11/18/17 07:00 15:00 23:00 07:00 15:00 23:00 Intake Total 100 ml 780 ml 360 ml Output Total 1500 ml 700 ml 600 ml Balance -1400 ml 80 ml -240 ml Intake Oral 100 ml 780 ml 360 ml Output Urine Total 1500 ml 600 ml 600 ml Stool Total 100 ml # Bowel Movements 1 Result Diagram: 11/18/17 0542 11/18/17 0542 Objective Remarks Resp- CTAB CV-s1s2 Abd - + BS, soft ND, min diffuse tenderness Ext - calves soft NT. Edema slightly improved. Assessment and Plan Problem List: (1) Liver cirrhosis ICD Codes: K74.60 - Unspecified cirrhosis of liver (2) Alcohol dependence ICD Codes: F10.20 - Alcohol dependence, uncomplicated (3) GI bleed ICD Codes: K92.2 - Gastrointestinal hemorrhage, unspecified Status: Acute (4) Coagulopathy ICD Codes: D68.9 - Coagulation defect, unspecified Assessment and Plan 42 yof with history of alcohol abuse. Presents with alcoholic cirrhosis and acute GI bleed due to duodenal ulcer. Subsequently seemed to have developed a shock state which her cirrhotic liver was unable to tolerate well. Her transaminases peaked and now seem to be improving. Her bilirubin continues to rise (? due to cholestasis). But in addition to her other improving liver numbers her mentation and renal function seem to be improving. Anticipate that she will continue to improve. Would continue to monitor closely for now. Patient reportedly was just relocated to [place] from [place] by her mother. Her mother believes that someone at the [facility] began the medicaid process, but is unsure. Discussed with the RN that we need to have the family preservation caseworker, help them with applying for insurance (if not already in process) . In addition, she will need to undergo substance abuse rehab counseling (SARP) . Will have the family preservation caseworker assist the patient and her mother with identifying and starting this. Would need to participate for at least 3-6 months, then can be evaluated in [place] for consideration for possible liver transplant. The current medical regimen that was initiated by the lead sales consultant/ hospitalist seem reasonable. Would add a multivitamin and consider lasix and aldactone as needed, otherwise, no other new recommendations at this time. Case was discussed with Dr Francisco Haddad and plan formulated with him. -Today the patient seems to have worsened respiratory status, her xray seems worse (with increased bilateral infiltrates -? etiology) and leukocytosis.Spoke with hospitalist, will panculture and broaden antibiotics. The patient's son was in the room. Discussed her status with him. He is aware that if her respiratory status worsens that she may need to be intubated. All questions answered. Problem Qualifiers (1) Liver cirrhosis: (2) Alcohol dependence: Swapnil Hogan Jr., MD Nov 18, 2017 15:34
[2017-11-18] MEDS ORDERED: VANCOMYCIN INJ 2,000 MG in SODIUM CHLORID 0.9% 500 ML INJ 500 ML IV ONE (16:00)
[2017-11-18 16:15] LABS: TROPONIN I LESS THAN 0.02 NG/ML (0.02-0.05)
--- NOTE | 2017-11-18 16:50 | EKG ---
Date Performed: 11/18/2017 Time Performed: 09:32:54 PTAGE: 42 years EKG: Sinus rhythm WITH SHORT MS INTERVAL NONSPECIFIC T-WAVE ABNORMALITY Since the previous tracing, no significant pablo nge noted BORDERLINE ECG PREVIOUS TRACING : 11/12/2017 14.58 DOCTOR: Mahi Low Interpretating Date/Time 11/18/2017 16:48:57
--- NOTE | 2017-11-18 16:51 | EKG ---
Date Performed: 11/18/2017 Time Performed: 13:14:26 PTAGE: 42 years EKG: Sinus rhythm NONSPECIFIC T-WAVE ABNORMALITY Since the previous tracing, no significant change noted BORDERLINE EC G PREVIOUS TRACING : 11/18/2017 09.32 DOCTOR: Mahi Low Interpretating Date/Time 11/18/2017 16:49:11
[2017-11-18] MEDS ORDERED: ALBUMIN 25% INJ 100 ML IV SCH (17:30)
--- NOTE | 2017-11-18 17:30 | HHI.CCPN ---
Subjective Remarks/Hospital Course Patient is a 42-year-old female with past medical history significant for alcohol dependence and cirrhosis who presented to the [place] emergency department for dark starry stools and coffee-ground vomiting starting last night. Patient had been very weak and had sustained a fall at home according to the history. In the ER she was very pale jaundiced. Had one episode of large amount of coffee-ground vomiting in the ED. hemoglobin came back at 3.4. Sodium was 125, bicarb was only 10, anion gap 32, BUN 80 with creatinine of 1.9. Patient received 1 unit of normal saline bolus. Right IJ central line was placed and blood transfusion and FFP was ordered for INR of 1.9. Patient's blood pressure started to trend down, and emergency release blood was ordered after 1 unit of blood transfusion, blood pressure started to stabilized. Patient received in addition to 1 unit PRBC, IV thiamine, Zofran, octreotide bolus, Protonix 80 mg IV bolus, and calcium. I was contacted by the ED physician and after discussion with Dr. Wiseman decision was made to emergently transfer patient to [facility] hospital for emergent EGD and other interventions if needed. I placed patient on bicarb infusion, Protonix infusion and octreotide infusion. I evaluated the patient immediately after arrival to the main ICU. Patient remains alert awake but confused. Her lactic acid came back at 25, additional fluid bolus was ordered. Currently receiving blood and blood product transfusion. Patient was intubated for airway protection and also to facilitate EGD. After intubation I also placed a right femoral central line. After EGD patient will need a CT of the abdomen pelvis with IV and oral contrast to rule out ischemic bowel as the lactic acid is severely elevated. Empiric antibiotics with IV vancomycin, IV Azactam, IV Flagyl. Discussed the patient multiple times with Dr. Roche and Dr. Wiseman 11/13: Remains critical but some improvement in perfusion. Received 6 units of PRBC to FFP and 1 unit of platelets overnight. Urine output approximately 1 L in the last 12 hours. Hemoglobin 8.8 today, INR 1.7. Lactate 24.3 to 3 today. ABG shows resolution of metabolic acidosis. Will discontinue bicarbonate infusion reduce PRVC rate to 16. EGD yesterday showed mild gastritis in the gastric antrum, with some coffee-ground material. Angiodysplastic lesion with bleeding was found in the 2nd part of the duodenum; cauterized with complete hemostasis. CT abdomen pelvis showed no signs of bowel ischemia, probable mass right lobe of liver 11/14: Patient remains intubated sedated, critically ill but stabilizing. Still requiring 7 mcg/min of Levophed. Continued NG tube coffee-ground output. INR is 2 will transfuse 1 unit of FFP, and 10 mg vitamin K IV. Start lactulose if okay with GI, check MRI of the abdomen rule out hepatoma. Updated mother at the bedside. 11/15: Patient remains intubated still requiring Levophed to maintain blood pressure map above 65, NG tube output has decreased significantly. Hemoglobin remained stable. CPAP trial past will proceed with extubation today 11/16: Extubated yesterday breathing comfortably, Off Levophed since yesterday, UO excellent with IV Lasix given yesterday. Hb 7.7 today, INR 1.9 no evidence of active bleeding RECONSULT NOTE: 11/18: reconsulted for tachypnea and respiratory distress. evaluated. patient is tachypneic but speaking in full sentences. complaints of abdominal pain, but not unchanged from before. is significantly up from dry weight and evidence of pulmonary edema on CXR as well as 3+ edema of LEs. Gram stain on sputum with many GPCs and now on Vanc and Aztreonam for empiric coverage for HCAP pneumonia. not on spironolactone or lasix or propranolol. Objective Vital Signs Date Time Temp Pulse Resp B/P (MAP) Pulse Ox O2 Delivery O2 Flow Rate FiO2 11/18/17 17:07 94 35 110/72 (85) 94 11/18/17 12:44 Non-Rebreather 15.00 11/18/17 12:38 99.1 11/15/17 10:40 35 Intake and Output 11/18/17 11/18/17 11/19/17 08:00 16:00 00:00 Intake Total 360 ml Output Total 600 ml 650 ml Balance -240 ml -650 ml Result Diagram: 11/18/17 0542 11/18/17 0542 Other Results Laboratory Tests Test 11/18/17 09:20 Blood Gas Puncture Site LT RADIAL Blood Gas Patient Temperature 98.6 Blood Gas HCO3 25 mmol/L (22-26) Blood Gas Base Excess 2.1 mmol/L (-2-2) Blood Gas Oxygen Saturation 94 % (90-100) Arterial Blood pH 7.49 (7.380-7.420) Arterial Blood Partial Pressure CO2 34 mmHg (38-42) Arterial Blood Partial Pressure O2 76 mmHg (61-120) Arterial Blood Oxygen Content 11.1 Vol % (12.0-20.0) Arterial Blood Carboxyhemoglobin 2.3 % (0-4) Arterial Blood Methemoglobin 0.7 % (0-2) Blood Gas Hemoglobin 8.3 G/DL (12.0-16.0) Oxygen Delivery Device NRB Blood Gas Liter Flow 12 L/M Imaging Chest x-ray showed no acute findings Procedures Right IJ central line, right femoral artery line, EGD, colonoscopy Objective Remarks GENERAL: middle-aged female who appears older than stated age. pale and jaundiced SKIN: Warm/dry. HEAD: Atraumatic. Normocephalic. EYES: Pupils equal and round. Positive icterus, positive pallor ENT: Mucous membranes moist, airway patent NECK: Trachea midline. No JVD. CARDIOVASCULAR: normal rate, regular rhythm. sinus. RESPIRATORY: equal chest rise. labored. tachypneic. partial NRB in place. RR 30s. GASTROINTESTINAL: Abdomen soft, mildly tender diffusely, nondistended. Stretch griggs noted. MUSCULOSKELETAL: warm, well perfused. 3+ edema. NEUROLOGICAL: Alert awake, follows commands, Moving all extremities. Nonfocal exam A/P Assessment and Plan Assessment: 42yF with End-stage liver disease course complicated by hypoxic respiratory failure and GI bleeding. now with probable HCAP pneumonia and again respiratory failure, which is likely multifactorial and includes volume overload and pneumonia. continue aggressive diuresis and antibiotics. critically ill today and worse than yesterday. NEURO: Hepatic encephalopathy -Minimize sedation -Supplement thiamine -Lactulose 30 mL was TID- increase back to QID. RESP: Acute respiratory failure-recurrent. -Intubated and placed on mechanical ventilation on admission 11/12/17, extubated -DuoNeb every 6 hours as needed - wean o2 as tolerated for goal spo2 > 90%. CV: Hemorrhagic shock-resolved Lactic acidosis, severe-resolved Acute intravascular volume overload Pulmonary Edema - lasix 60mg iv x 1 followed by 40mg iv q8h with concentrated albumin - diamox 250mg iv x 1. start spironolactone 25mg po daily - start propranolol 10mg po q8h. GI/HEME: GI bleed Angiodysplasia of the second part of duodenum Liver cirrhosis Probable right hepatic mass Severe anemia requiring transfusion Coagulopathy -Protonix 40 mg iv q12, off otreotide infusions -Emergent EGD by Dr. Roche 11/12 showed angiodysplasia of the second part of duodenum, status post cauterization with complete hemostasis -Colonoscopy by Dr. Figueroa in 11/13/2017: Black stool throughout the colon. 2 colon polyps removed -Bleeding most likely from small bowel AVMs, capsule endoscopy recommended as outpatient -s/p 6 units PRBC, 2 FFP, 1 platelet. -Continue correction of coagulopathy 5 mg vitamin K -Trend H&H, INR -MRI of the liver to rule out hepatoma-no evidence of hepatoma -CA 125 elevated at 60, may be nonspecific. Plan outpatient follow-up : Acute kidney injury/prerenal Possible hepatorenal syndrome -Secondary to severe dehydration and ATN, now resolved -diuresis as above. ID: Leukocytosis Sepsis, present on admission New HCAP pneumonia - f/u new blood and sputum cultures - continue azactam and vanc ENDO: -Electrolyte replacement per protocol PROPH: -Bilateral lower extremity SCDs. Chemical DVT prophylaxis is contraindicated, continue IV Protonix LINES: -piv's Critical care time: 37 minutes, exclusive of separately billable procedures. Aden Steele MD Nov 18, 2017 17:30
[2017-11-18] MEDS ORDERED: FUROSEMIDE 40 MG/4 ML VIAL IV PUSH SCH (17:45)
[2017-11-18 17:57] LABS: BACTERIA, URINE MOD /hpf; BILIRUBIN, URINE LARGE (NEG); BLOOD, URINE NEG (NEG); GLUCOSE,URINE NEG (NEG); KETONE, URINE NEG (NEG); MUCUS URINE FEW /lpf (OCC); NITRITE,URINE NEG (NEG); SQUAMOUS EPITHELIAL CELL URINE <1 /hpf (0-5); URINE LEUKOCYTE ESTERASE NEG (NEG)
[2017-11-18 17:59] LABS: URINE COLOR DARK-ORANGE (YELLW/STRAW)
[2017-11-18] MEDS: ONDANSETRON HCL 4 MG/2 ML VIAL IV PUSH PRN (18:37)
[2017-11-18] MEDS: ALBUMIN 25% INJ 100 ML IV SCH (20:04)
[2017-11-18 22:50] LABS: TROPONIN I LESS THAN 0.02 NG/ML (0.02-0.05)
[2017-11-18] MEDS ORDERED: ALPRAZolam 0.25 MG TAB PO ONE (23:00)
[2017-11-19] VITALS (10 sets, daily range): BP systolic 94–113; BP diastolic 50–69; PULSE 74–84; RESP 22–34; TEMP 96.1–98.2; O2SAT 94–99
[2017-11-19] MEDS: AZTREONAM INJ 2,000 MG in SODIUM CHLORIDE 0.9% INJ 100 ML IV SCH ×2 (00:06→09:18)
[2017-11-19] MEDS: ONDANSETRON HCL 4 MG/2 ML VIAL IV PUSH PRN ×2 (00:11→06:08)
[2017-11-19] MEDS: SODIUM CHLORIDE 0.9% FLUSH 10 ML FLUSH IV FLUSH PRN (00:11)
[2017-11-19] MEDS: FUROSEMIDE 40 MG/4 ML VIAL IV PUSH SCH ×3 (03:12→20:36)
[2017-11-19] MEDS: ALBUMIN 25% INJ 100 ML IV SCH ×3 (03:12→20:38)
[2017-11-19] MEDS: CHLORHEXIDINE GLUCONATE 2 % 1 PACK (2 CLOTHS) TOP SCH (04:00)
[2017-11-19] MEDS: VANCOMYCIN 1,500 MG/NS 500 ML IV SCH ×4 (04:53→17:40)
[2017-11-19] MEDS: PROPRANOLOL HCL 10 MG TAB PO SCH ×3 (06:03→22:16)
[2017-11-19] MEDS: PENTOXIFYLLINE 400 MG CONTROLLED RELEASE TAB PO SCH ×3 (06:03→22:16)
[2017-11-19 06:38] LABS: AUTOMATED NEUTROPHIL # 15.8 TH/MM3 (1.8-7.7); BASOPHIL % 0.1 % (0.0-2.0); EOSINOPHIL # 0.1 TH/MM3 (0-0.4); EOSINOPHIL % 0.4 % (0.0-4.0); HEMATOCRIT 26.8 % (35.0-46.0); LYMPH % 4.6 % (9.0-44.0); LYMPHOCYTE # 0.8 TH/MM3 (1.0-4.8); MEAN CELL VOLUME 95.6 FL (80.0-100.0); MEAN CORPUSCULAR HEMOGLOBIN 32.1 PG (27.0-34.0); MEAN CORPUSCULAR HGB CONC 33.6 % (32.0-36.0); MEAN PLATELET VOLUME 7.1 FL (7.0-11.0); MONO % 6.9 % (0.0-8.0); MONOCYTE # 1.2 TH/MM3 (0-0.9); PLATELET COUNT 130 TH/MM3 (150-450); RED BLOOD COUNT 2.81 MIL/MM3 (4.00-5.30); RED CELL DISTRIBUTION WIDTH 18.9 % (11.6-17.2)
[2017-11-19 06:40] LABS: ALBUMIN 2.5 GM/DL (3.4-5.0); ALT (GPT) 89 U/L (10-53); AST (GOT) 77 U/L (15-37); BICARBONATE 26.5 MEQ/L (21.0-32.0); BLOOD UREA NITROGEN 14 MG/DL (7-18); CALCIUM 7.6 MG/DL (8.5-10.1); CHLORIDE 104 MEQ/L (98-107); CREATININE 0.61 MG/DL (0.50-1.00); GLOMERULAR FILTRATION RATE 108 ML/MIN (>89); GLUCOSE,RANDOM 102 MG/DL (74-106); MAGNESIUM 1.8 MG/DL (1.5-2.5); SODIUM (NA) 139 MEQ/L (136-145)
[2017-11-19 06:42] LABS: ALKALINE PHOSPHATASE 111 U/L (45-117); TOTAL BILIRUBIN ADULT 13.4 MG/DL (0.2-1.0); TOTAL PROTEIN 4.8 GM/DL (6.4-8.2)
[2017-11-19] MEDS: RESP: ALBUTEROL 2.5 MG/IPRATROPIUM 0.5 MG NEB (SCH) NEB ×4 (08:00→22:05)
[2017-11-19] MEDS: SPIRONOLACTONE 25 MG TAB PO SCH (09:17)
[2017-11-19] MEDS: MULTIVITAMIN TAB PO SCH (09:17)
[2017-11-19] MEDS: LACTULOSE SYRUP 20 GM/30 ML CUP PO SCH ×4 (09:17→20:36)
[2017-11-19] MEDS: POTASSIUM CHLORIDE 20 MEQ CONTROLLED RELEASE TAB PO SCH ×2 (09:17→22:16)
[2017-11-19] MEDS: PANTOPRAZOLE SOD 40 MG DELAYED RELEASE TAB PO SCH ×2 (09:17→22:15)
[2017-11-19] MEDS: THIAMINE HCL 100 MG TAB PO SCH (09:18)
--- NOTE | 2017-11-19 11:04 | HHI.CCPN ---
Subjective Remarks/Hospital Course Patient is a 42-year-old female with past medical history significant for alcohol dependence and cirrhosis who presented to the [place] emergency department for dark starry stools and coffee-ground vomiting starting last night. Patient had been very weak and had sustained a fall at home according to the history. In the ER she was very pale jaundiced. Had one episode of large amount of coffee-ground vomiting in the ED. hemoglobin came back at 3.4. Sodium was 125, bicarb was only 10, anion gap 32, BUN 80 with creatinine of 1.9. Patient received 1 unit of normal saline bolus. Right IJ central line was placed and blood transfusion and FFP was ordered for INR of 1.9. Patient's blood pressure started to trend down, and emergency release blood was ordered after 1 unit of blood transfusion, blood pressure started to stabilized. Patient received in addition to 1 unit PRBC, IV thiamine, Zofran, octreotide bolus, Protonix 80 mg IV bolus, and calcium. I was contacted by the ED physician and after discussion with Dr. Wiseman decision was made to emergently transfer patient to [facility] hospital for emergent EGD and other interventions if needed. I placed patient on bicarb infusion, Protonix infusion and octreotide infusion. I evaluated the patient immediately after arrival to the main ICU. Patient remains alert awake but confused. Her lactic acid came back at 25, additional fluid bolus was ordered. Currently receiving blood and blood product transfusion. Patient was intubated for airway protection and also to facilitate EGD. After intubation I also placed a right femoral central line. After EGD patient will need a CT of the abdomen pelvis with IV and oral contrast to rule out ischemic bowel as the lactic acid is severely elevated. Empiric antibiotics with IV vancomycin, IV Azactam, IV Flagyl. Discussed the patient multiple times with Dr. Roche and Dr. Wiseman 11/13: Remains critical but some improvement in perfusion. Received 6 units of PRBC to FFP and 1 unit of platelets overnight. Urine output approximately 1 L in the last 12 hours. Hemoglobin 8.8 today, INR 1.7. Lactate 24.3 to 3 today. ABG shows resolution of metabolic acidosis. Will discontinue bicarbonate infusion reduce PRVC rate to 16. EGD yesterday showed mild gastritis in the gastric antrum, with some coffee-ground material. Angiodysplastic lesion with bleeding was found in the 2nd part of the duodenum; cauterized with complete hemostasis. CT abdomen pelvis showed no signs of bowel ischemia, probable mass right lobe of liver 11/14: Patient remains intubated sedated, critically ill but stabilizing. Still requiring 7 mcg/min of Levophed. Continued NG tube coffee-ground output. INR is 2 will transfuse 1 unit of FFP, and 10 mg vitamin K IV. Start lactulose if okay with GI, check MRI of the abdomen rule out hepatoma. Updated mother at the bedside. 11/15: Patient remains intubated still requiring Levophed to maintain blood pressure map above 65, NG tube output has decreased significantly. Hemoglobin remained stable. CPAP trial past will proceed with extubation today 11/16: Extubated yesterday breathing comfortably, Off Levophed since yesterday, UO excellent with IV Lasix given yesterday. Hb 7.7 today, INR 1.9 no evidence of active bleeding RECONSULT NOTE: 11/18: reconsulted for tachypnea and respiratory distress. evaluated. patient is tachypneic but speaking in full sentences. complaints of abdominal pain, but not unchanged from before. is significantly up from dry weight and evidence of pulmonary edema on CXR as well as 3+ edema of LEs. Gram stain on sputum with many GPCs and now on Vanc and Aztreonam for empiric coverage for HCAP pneumonia. not on spironolactone or lasix or propranolol. 11/19: good diuresis yesterday. remains tachypneic on partial NRB. edema persists. sputum culture still pending, but appears to be new HCAP pneumonia. had long talk with mother at bedside and we talked about long and short-term prognosis of ESLD. mother requests palliative care to provide additional support. Objective Vital Signs Date Time Temp Pulse Resp B/P (MAP) Pulse Ox O2 Delivery O2 Flow Rate FiO2 11/19/17 08:00 98.0 76 34 98/52 (67) 97 11/18/17 21:51 Partial Rebreather 12.00 11/15/17 10:40 35 Intake and Output 11/19/17 11/19/17 11/20/17 08:00 16:00 00:00 Intake Total 340 ml Output Total 800 ml Balance -460 ml Result Diagram: 11/19/17 0604 11/19/17 0604 Imaging Chest x-ray showed no acute findings Procedures Right IJ central line, right femoral artery line, EGD, colonoscopy Objective Remarks GENERAL: middle-aged female who appears older than stated age. pale and jaundiced SKIN: Warm/dry. HEAD: Atraumatic. Normocephalic. EYES: Pupils equal and round. Positive icterus, positive pallor ENT: Mucous membranes moist, airway patent NECK: Trachea midline. No JVD. CARDIOVASCULAR: normal rate, regular rhythm. sinus. RESPIRATORY: equal chest rise. labored. tachypneic. partial NRB in place. RR 20s. GASTROINTESTINAL: Abdomen soft, mildly tender diffusely, nondistended. Stretch griggs noted. MUSCULOSKELETAL: warm, well perfused. 3+ edema. NEUROLOGICAL: Alert awake, follows commands, Moving all extremities. Nonfocal exam A/P Assessment and Plan Assessment: 42yF with End-stage liver disease course complicated by hypoxic respiratory failure and GI bleeding. now with probable HCAP pneumonia and again respiratory failure, which is likely multifactorial and includes volume overload and pneumonia. continue aggressive diuresis and antibiotics. remains critically ill and multiple organs dysfunctional: both acutely and chronically. will ask palliative care to lend support to the patient and family. goals remain aggressive. NEURO: Hepatic encephalopathy -Minimize sedation -Supplement thiamine -Lactulose 30 mL was TID- increase back to QID. RESP: Acute respiratory failure-recurrent. -Intubated and placed on mechanical ventilation on admission 11/12/17, extubated -DuoNeb every 6 hours as needed - wean o2 as tolerated for goal spo2 > 90%. CV: Hemorrhagic shock-resolved Lactic acidosis, severe-resolved Acute intravascular volume overload Pulmonary Edema - lasix 40mg iv q8h with concentrated albumin - diamox 250mg iv x 1. - spironolactone 25mg po daily - propranolol 10mg po q8h. GI/HEME: GI bleed Angiodysplasia of the second part of duodenum Liver cirrhosis Probable right hepatic mass Severe anemia requiring transfusion Coagulopathy -Protonix 40 mg iv q12, off otreotide infusions -Emergent EGD by Dr. Roche 11/12 showed angiodysplasia of the second part of duodenum, status post cauterization with complete hemostasis -Colonoscopy by Dr. Hemmaiden in 11/13/2017: Black stool throughout the colon. 2 colon polyps removed -Bleeding most likely from small bowel AVMs, capsule endoscopy recommended as outpatient -s/p 6 units PRBC, 2 FFP, 1 platelet. -Continue correction of coagulopathy 5 mg vitamin K -Trend H&H, INR -MRI of the liver to rule out hepatoma-no evidence of hepatoma -CA 125 elevated at 60, may be nonspecific. Plan outpatient follow-up : Acute kidney injury/prerenal Possible hepatorenal syndrome -Secondary to severe dehydration and ATN, now resolved -diuresis as above. ID: Leukocytosis Sepsis, present on admission New HCAP pneumonia - f/u new blood and sputum cultures - continue azactam and vanc ENDO: -Electrolyte replacement per protocol PROPH: -Bilateral lower extremity SCDs. Chemical DVT prophylaxis is contraindicated, continue IV Protonix LINES: -Aden Ritchie MD Nov 19, 2017 11:04
--- NOTE | 2017-11-19 12:52 | HHI.GIFU ---
Subjective Remarks Pt on partial NRB, pedal edema has improved but persists, mother by bed side, one episode of vomiting yesterday, no bleeding reported (Samina Guadalupe RAUL) Objective Vitals I&O Vital Signs Date Time Temp Pulse Resp B/P (MAP) Pulse Ox O2 Delivery O2 Flow Rate FiO2 11/19/17 11:44 97 Partial Rebreather 12.00 11/19/17 11:41 96.1 77 32 97/50 (66) 99 11/19/17 08:00 98.0 76 34 98/52 (67) 97 11/19/17 04:00 74 11/19/17 04:00 97.7 75 24 101/57 (72) 95 11/19/17 00:00 98.2 81 22 113/55 (74) 94 11/19/17 00:00 84 11/18/17 21:51 96 Partial Rebreather 12.00 11/18/17 20:11 98.8 82 22 104/66 (79) 95 11/18/17 20:00 84 11/18/17 17:07 94 35 110/72 (85) 94 11/18/17 16:00 99.4 84 36 110/72 (85) 95 11/18/17 12:44 100 Non-Rebreather 15.00 I/O 11/18/17 11/18/17 11/18/17 11/19/17 11/19/17 11/19/17 07:00 15:00 23:00 07:00 15:00 23:00 Intake Total 360 ml 820 ml 100 ml 340 ml Output Total 600 ml 2075 ml 800 ml Balance -240 ml 820 ml -1975 ml -460 ml Intake Oral 360 ml 720 ml 240 ml IV Total 100 ml 100 ml 100 ml Output Urine Total 600 ml 1875 ml 800 ml Emesis 200 ml # Voids 2 1 # Bowel Movements 1 1 1 3 1 Laboratory Laboratory Tests Test 11/18/17 15:30 11/18/17 17:02 11/18/17 21:45 11/19/17 06:04 Ammonia 41 Total Creatine Kinase 56 62 Troponin I LESS THAN 0.02 LESS THAN 0.02 Urine Color DARK-ORANGE Urine Turbidity CLEAR Urine pH 6.0 Urine Specific [place] 1.018 Urine Protein TRACE Urine Glucose (UA) NEG Urine Ketones NEG Urine Occult Blood NEG Urine Nitrite NEG Urine Bilirubin LARGE Urine Urobilinogen LESS THAN 2.0 Urine Leukocyte Esterase NEG Urine RBC 1 Urine WBC 2 Urine Squamous Epithelial Cells <1 Urine Bacteria MOD Urine Mucus FEW Microscopic Urinalysis Comment CATH-CULTURE IND White Blood Count 18.0 Red Blood Count 2.81 Hemoglobin 9.0 Hematocrit 26.8 Mean Corpuscular Volume 95.6 Mean Corpuscular Hemoglobin 32.1 Mean Corpuscular Hemoglobin Concent 33.6 Red Cell Distribution Width 18.9 Platelet Count 130 Mean Platelet Volume 7.1 Neutrophils (%) (Auto) 88.0 Lymphocytes (%) (Auto) 4.6 Monocytes (%) (Auto) 6.9 Eosinophils (%) (Auto) 0.4 Basophils (%) (Auto) 0.1 Neutrophils # (Auto) 15.8 Lymphocytes # (Auto) 0.8 Monocytes # (Auto) 1.2 Eosinophils # (Auto) 0.1 Basophils # (Auto) 0.0 CBC Comment DIFF FINAL Differential Comment Blood Urea Nitrogen 14 Creatinine 0.61 Random Glucose 102 Total Protein 4.8 Albumin 2.5 Calcium Level 7.6 Magnesium Level 1.8 Alkaline Phosphatase 111 Aspartate Amino Transf (AST/SGOT) 77 Alanine Aminotransferase (ALT/SGPT) 89 Total Bilirubin 13.4 Sodium Level 139 Potassium Level 3.7 Chloride Level 104 Carbon Dioxide Level 26.5 Anion Gap 9 Estimat Glomerular Filtration Rate 108 Date/Time Source Procedure Growth Status 11/18/17 15:40 Blood Peripheral Aerobic Blood Culture - Preliminary NO GROWTH IN 1 DAY Resulted 11/18/17 15:40 Blood Peripheral Anaerobic Blood Culture - Preliminary NO GROWTH IN 1 DAY Resulted 11/18/17 10:15 Sputum Expectorated Sputum Gram Stain - Final Resulted 11/18/17 10:15 Sputum Expectorated Sputum Sputum Culture Pending Resulted 11/18/17 17:02 Urine Catheterized Urine Urine Culture - Preliminary NO GROWTH IN 24 HOURS. Resulted Imaging Last Impressions Chest X-Ray 11/18/17 0000 Signed Impressions: Service Date/Time: Saturday, November 18, 2017 09:04 - CONCLUSION: Increasing airspace disease both lungs. Sergio Otoole MD FACR Abdomen MRI 11/14/17 0000 Signed Impressions: Service Date/Time: Tuesday, November 14, 2017 13:50 - CONCLUSION: 1. No evidence of abnormal enhancing hepatic mass. 2. Cirrhosis of the liver, ascites, recanalization of the umbilical vein, and perigastric varices consistent with portal hypertension. 3. Small bilateral pleural effusions with adjacent compressive atelectasis. Gordon Klein MD Abdomen X-Ray 11/12/171951 Signed Impressions: Service Date/Time: Sunday, November 12, 2017 19:56 - CONCLUSION: NG tube tip is at the GE junction. Janusz Curtis MD Abdomen/Pelvis CT 11/12/17 0000 Signed Impressions: Service Date/Time: Sunday, November 12, 2017 22:00 - CONCLUSION: 1. Cirrhosis with small ascites and a recanalized umbilical vein with caput medusa. Possible mass of the right hepatic lobe and a followup nonemergent MRI of the abdomen with and without contrast is recommended. 2. Orogastric tube is coiled in the stomach. 3. No obstruction or acute inflammatory changes are seen of the gastrointestinal tract. 4. Atelectasis/infiltrate left lung base. Trace atelectasis right lung base. Janusz Curtis MD Physical Exam HEENT: Normocephalic; atraumatic; +icterus using a nonrebreather mask CHEST: Even/unlabored CARDIAC: tachy ABDOMEN: Distended, soft,diffuse TTP, bowel sounds active , ascites EXTREMITIES: Generalized edema SKIN: (+) jaundice CRNP: lethargic (Samina Guadalupe) Assessment and Plan Plan Assessment and Plan Plan Assessment: - Cirrhosis- secondary to ETOH. MELD-25 DF-41 Concern for possible mass of right hepatic lobe of the liver on CT MRI abdomen (11/14) --> No evidence of abnormal enhancing hepatic mass. Cirrhosis of the liver, ascites, recanalization of the umbilical vein, and perigastric varices consistent with portal HTN. Tumor markers: AFP-2.5 CEA-4.3 CA 19-9-13.5 VS621-24.5 - Anemia with reports of dark stool and coffee ground emesis on admission S/P EGD --> Class B esophagitis. Mild gastritis in the gastric antrum, some coffee grounds. No blood. Angiodysplastic lesion with bleeding was found in the 2nd part of the duodenum, cautery with complete hemostasis. S/P Colonoscopy --> Black stool spread throughout the colon and small pockets may interfere with the vision of small lesions. 1 cm polyp in the ascending colon removed by snare. 1 cm polyp in the sigmoid removed by snare. No sign of active bleeding. Could be from AVM in small bowel. Pathology - 2 adenomatous polyps. 11/13/2017 42-year-old lady with significant anemia questionable etiology upper endoscopy showed AVM, hemoglobin stable now, had a colonoscopy done today Patient also has cirrhosis most likely secondary to alcohol, severe elevation of the liver function tests including total bilirubin patient also has a possible mass in the liver and today her CA 125 came back elevated 11/14/17 lessening coffee ground output OGT. LFTs trending up. ETOH hepatitis vs liver mass vs shock liver? DF 49. MRI liver pending. HH stable. NH 70 11/15/17 decreasing coffee ground output. MRI showed cirrhosis, ascites, varices, portal HTN, no evidence mass. s/p extubation. HH stable. LFTs trending down. colon bx adenomatous polyp (11/16) Anemia- no obvious GIB- flexiseal with green/brown liquid stool. No longer has OG and no reports of emesis. H/H dropped some, hgb from 8.3 to 7.7 Cirrhosis-AST and ALT trending down. T bili remains elevated at 9.5. DF of 41 would likely benefit from steroids, however initial concern for sepsis pt is on 7 day course of Azactam with plans to repeat blood cultures after 7 days, initial blood cultures on 11/12 are preliminary negative. Will add Pentoxifylline Ammonia elevated at 70 on 11/13 no recheck, pt is on Lactulose Thrombocytopenia noted- platelets 97 Coagulopathy- INR 1.9 11/17/17 pt lethargic. transaminases improving, tbil is worsening. pt coughing up bloody clots per mother. HH stable thrombocytopenia worsening. 11/18/2017 patient is more lethargic today on nonrebreather mask, mild elevation of her white count she had some chest discomfort, and increase in her liver function test Need to rule out infectious process, could be atelectasis related causing her shortness of breath and elevated white blood cells 11/19/17 Patient remain critically ill, on partial NRB, edema better but persist. Sputum cx pending, ? HCAP pneumonia No bleeding reported, hh stable. Tumor markers normal except elevation Ca 125 Plan: cont Pentoxifylline cont. lactulose Cont. Lasix and Aldactone Monitor labs Protonix 2gm low sodium Notify GI if active bleeding Is already on antibiotics Pt will need capsule endoscopy outpatient guarded prognosis Palliative care on the case Pt seen and examined by Dr. Gregg and myself (Samina Guadalupe) Plan Patient was seen and examined, agree with above note, patient seems to have pneumonia, she is stable but still lethargic and on nonrebreather mask, she was started on antibiotic, overall guarded prognosis, I discussed this with her mother and brother and will continue current care (Orville Gregg MD) Samina Guadalupe Nov 19, 2017 12:52 Orville Gregg MD Nov 19, 2017 15:29
--- NOTE | 2017-11-19 14:26 | EKG ---
Date Performed: 11/18/2017 Time Performed: 21:08:34 PTAGE: 42 years EKG: Sinus rhythm NONSPECIFIC T-WAVE ABNORMALITY BORDERLINE ECG Since PREVIOUS TRACING , no significant change noted PREVIOUS TRACIN11/18/2017 13.14 DOCTOR: Mahi Low Interpretating Date/Time 11/19/2017 14:24:35
[2017-11-19] MEDS: PHYTONADIONE 2.5 MG/SWFI 2.5 ML ORAL SYR PO SCH (15:00)
--- NOTE | 2017-11-19 15:29 | HHI.PR ---
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 and acute UGI Bleed. Now seems to have developed possible hospital acquired pneumonia and is currently on a nonrebreather. Is arousable but less responsive than a couple days ago. Objective Vital Signs Date Time Temp Pulse Resp B/P (MAP) Pulse Ox O2 Delivery O2 Flow Rate FiO2 11/19/17 11:44 97 Partial Rebreather 12.00 11/19/17 11:41 96.1 77 32 97/50 (66) 99 11/19/17 08:00 98.0 76 34 98/52 (67) 97 11/19/17 04:00 74 11/19/17 04:00 97.7 75 24 101/57 (72) 95 11/19/17 00:00 98.2 81 22 113/55 (74) 94 11/19/17 00:00 84 11/18/17 21:51 96 Partial Rebreather 12.00 11/18/17 20:11 98.8 82 22 104/66 (79) 95 11/18/17 20:00 84 11/18/17 17:07 94 35 110/72 (85) 94 11/18/17 16:00 99.4 84 36 110/72 (85) 95 I/O 11/18/17 11/18/17 11/18/17 11/19/17 11/19/17 11/19/17 07:00 15:00 23:00 07:00 15:00 23:00 Intake Total 360 ml 820 ml 100 ml 340 ml Output Total 600 ml 2075 ml 800 ml 750 ml Balance -240 ml 820 ml -1975 ml -460 ml -750 ml Intake Oral 360 ml 720 ml 240 ml IV Total 100 ml 100 ml 100 ml Output Urine Total 600 ml 1875 ml 800 ml 750 ml Emesis 200 ml # Voids 2 1 # Bowel Movements 1 1 1 3 2 Result Diagram: 11/19/17 0604 11/19/17 0604 Objective Remarks Resp- Coarse breath sounds bilaterally. Nonrebreather in place. CV-s1s2 Abd - + BS, soft ND, min diffuse tenderness. No peritoneal signs noted. Ext - calves soft NT. Edema slightly improved, but still with 4+ pitting edema in BLE. Assessment and Plan Problem List: (1) Liver cirrhosis ICD Codes: K74.60 - Unspecified cirrhosis of liver (2) Alcohol dependence ICD Codes: F10.20 - Alcohol dependence, uncomplicated (3) GI bleed ICD Codes: K92.2 - Gastrointestinal hemorrhage, unspecified Status: Acute (4) Coagulopathy ICD Codes: D68.9 - Coagulation defect, unspecified Assessment and Plan 42 yof with history of alcohol abuse. admitted with ELSD and acute GI bleed. Her TBil seems to have plateaued (? due to cholestasis). Her transaminases continue to slowly improve. Her leukocytosis has worsened since yesterday despite antibiosis. Suspect she has combined hospital acquired pneumonia along with some fluid overload. She has continued resp insufficiency and is currently on a nonrebreather. Anticipate that she may require require re-intubation, due to increased work of breathing. Case d/w childhood development teacher. No new recommendations. Spoke with family for about 15 minutes. All questions answered. They would like to discuss DNR status with childhood development teacher, he is aware and will address when able. Problem Qualifiers (1) Liver cirrhosis: (2) Alcohol dependence: Swapnil Hogan Jr., MD Nov 19, 2017 15:29
[2017-11-19] MEDS: CHLORHEXIDINE 0.12% (ORAL KIT) 15 ML CUP MT SCH (20:00)
[2017-11-20] VITALS (25 sets, daily range): BP systolic 89–120; BP diastolic 50–72; PULSE 70–89; RESP 17–38; TEMP 98.5–101.9; O2SAT 90–100
[2017-11-20] MEDS ORDERED: ROCURONIUM INJ 50 MG/5 ML VIAL ONE (00:06)
[2017-11-20] MEDS ORDERED: ETOMIDATE 40 MG/20 ML VIAL ONE (00:06)
[2017-11-20] MEDS ORDERED: PROPOFOL 500 MG/50 ML INJ 50 ML ONE (00:10)
[2017-11-20] MEDS ORDERED: PHENYLEPHRINE HCL 10 MG/ML VIAL ONE (00:14)
[2017-11-20] MEDS ORDERED: ETOMIDATE 20 MG/10 ML VIAL IV PUSH ONE (00:15)
[2017-11-20] MEDS ORDERED: MIDAZOLAM HCL 2 MG/2 ML VIAL IV PUSH PRN (00:15)
[2017-11-20] MEDS ORDERED: ROCURONIUM INJ 50 MG/5 ML VIAL IV ONE (00:15)
[2017-11-20] MEDS ORDERED: TERBUTALINE INJ 1 MG/ML AMP SQ PRN (00:15)
[2017-11-20] MEDS: PHENYLEPHRINE INJ 40 MG in DEXTROSE 5% IN WATE 500 ML INJ 496 ML IV PRN ×2 (00:25)
[2017-11-20] MEDS: PROPOFOL 1000 MG/100 ML INJ 100 ML IV PRN ×5 (00:30→23:27)
[2017-11-20] MEDS: fentaNYL DRIP 250 ML IV PRN ×2 (00:30→21:08)
--- NOTE | 2017-11-20 00:34 | PD.PROCEDR ---
Procedure Note Procedure PROCEDURE NOTE PROCEDURE: Endotracheal intubation INDICATION: Acute respiratory failure. Patient is hypoxemic with sats 91% on NR with respiratory rate in 40s. DETAILS OF PROCEDURE: The patient was placed in optimal position and preoxygenated with 100% FiO2 via [id number]. Oximeter oxygen saturation of 94% was obtained prior to direct laryngoscopy. The patient was administered Etomidate 20 mg IV for sedation and rocuronium 50 mg IV. Direct laryngoscopy was performed with a 4 Vogt laryngoscope blade and a grade I Cormack-Lehane view was obtained. Initially was going to place 8.0 ETT but glottis was small and would not accommodate. Switched to 7.5 endotracheal tube which was visualized passing through the cords. Correct placement was confirmed with colorimetric CO2 detector. Breath sounds were equal bilaterally. No sounds auscultated over the stomach. The endotracheal tube was secured with a commercial tube avina at a depth of 21 cm at the lips. The patient was connected to the ventilator. The patient tolerated the procedure well without any apparent complication. Oxygen saturations were maintained greater than 87% at all times. Stat chest x-ray was ordered. Irene Parker MD Nov 20, 2017 00:34
[2017-11-20] MEDS: CHLORHEXIDINE 0.12% (ORAL KIT) 15 ML CUP MT SCH ×5 (01:00→21:49)
--- NOTE | 2017-11-20 01:01 | RADRPT ---
EXAM DATE/TIME: 11/20/2017 00:45 [facility] COMPARISON: CHEST SINGLE AP, November 18, 2017, 9:04. INDICATIONS : Post intubation. MEDICAL HISTORY : Cirrhosis. SURGICAL HISTORY : Hysterectomy. ENCOUNTER: Subsequent ACUITY: 1 week PAIN SCORE: 0/10 LOCATION: Bilateral chest FINDINGS: There is diffuse bilateral airspace consolidation that is much worse in the interim. Small, bilateral pleural effusions are likely. I don't see a pneumothorax. Patient is now intubated. Endotracheal tube tip is approximately 4 cm above the dulce. CONCLUSION: Diffuse airspace disease, much worse over the past 2 days. Appropriate position of the endotracheal t ube tip. Jansuz Curtis MD on November 20, 2017 at 0:59 Board Certified Radiologist. This report was verified electronically.
[2017-11-20] MEDS: AZTREONAM INJ 2,000 MG in SODIUM CHLORIDE 0.9% INJ 100 ML IV SCH ×3 (02:35→17:06)
[2017-11-20] MEDS: metroNIDAZOLE 500 MG INJ 100 ML IV SCH ×4 (02:46→21:49)
[2017-11-20] MEDS: ALBUMIN 25% INJ 100 ML IV SCH ×3 (03:53→21:48)
[2017-11-20] MEDS: FUROSEMIDE 40 MG/4 ML VIAL IV PUSH SCH ×3 (03:59→21:48)
[2017-11-20] MEDS: CHLORHEXIDINE GLUCONATE 2 % 1 PACK (2 CLOTHS) TOP SCH (04:00)
[2017-11-20] MEDS: VANCOMYCIN 1,500 MG/NS 500 ML IV SCH ×4 (05:10→17:55)
[2017-11-20] MEDS: PENTOXIFYLLINE 400 MG CONTROLLED RELEASE TAB PO SCH ×2 (06:00→14:00)
[2017-11-20] MEDS: PROPRANOLOL HCL 10 MG TAB PO SCH ×3 (06:00→21:49)
[2017-11-20] MEDS: RESP: ALBUTEROL 2.5 MG/IPRATROPIUM 0.5 MG NEB (SCH) NEB ×4 (08:28→19:39)
[2017-11-20] MEDS: SODIUM CHLORIDE 0.9% FLUSH 10 ML FLUSH IV FLUSH PRN (08:35)
[2017-11-20] MEDS: LACTULOSE SYRUP 20 GM/30 ML CUP PO SCH ×4 (08:36→21:48)
[2017-11-20] MEDS: POTASSIUM CHLORIDE 20 MEQ CONTROLLED RELEASE TAB PO SCH (08:36)
[2017-11-20] MEDS: SPIRONOLACTONE 25 MG TAB PO SCH (08:36)
[2017-11-20] MEDS: PANTOPRAZOLE SOD 40 MG DELAYED RELEASE TAB PO SCH (08:36)
[2017-11-20] MEDS: MULTIVITAMIN TAB PO SCH (08:37)
[2017-11-20] MEDS: THIAMINE HCL 100 MG TAB PO SCH (08:37)
--- NOTE | 2017-11-20 09:00 | HHI.CCPN ---
Subjective Remarks/Hospital Course Patient is a 42-year-old female with past medical history significant for alcohol dependence and cirrhosis who presented to the [place] emergency department for dark starry stools and coffee-ground vomiting starting last night. Patient had been very weak and had sustained a fall at home according to the history. In the ER she was very pale jaundiced. Had one episode of large amount of coffee-ground vomiting in the ED. hemoglobin came back at 3.4. Sodium was 125, bicarb was only 10, anion gap 32, BUN 80 with creatinine of 1.9. Patient received 1 unit of normal saline bolus. Right IJ central line was placed and blood transfusion and FFP was ordered for INR of 1.9. Patient's blood pressure started to trend down, and emergency release blood was ordered after 1 unit of blood transfusion, blood pressure started to stabilized. Patient received in addition to 1 unit PRBC, IV thiamine, Zofran, octreotide bolus, Protonix 80 mg IV bolus, and calcium. I was contacted by the ED physician and after discussion with Dr. Wiseman decision was made to emergently transfer patient to [facility] hospital for emergent EGD and other interventions if needed. I placed patient on bicarb infusion, Protonix infusion and octreotide infusion. I evaluated the patient immediately after arrival to the main ICU. Patient remains alert awake but confused. Her lactic acid came back at 25, additional fluid bolus was ordered. Currently receiving blood and blood product transfusion. Patient was intubated for airway protection and also to facilitate EGD. After intubation I also placed a right femoral central line. After EGD patient will need a CT of the abdomen pelvis with IV and oral contrast to rule out ischemic bowel as the lactic acid is severely elevated. Empiric antibiotics with IV vancomycin, IV Azactam, IV Flagyl. Discussed the patient multiple times with Dr. Roche and Dr. Wiseman 11/13: Remains critical but some improvement in perfusion. Received 6 units of PRBC to FFP and 1 unit of platelets overnight. Urine output approximately 1 L in the last 12 hours. Hemoglobin 8.8 today, INR 1.7. Lactate 24.3 to 3 today. ABG shows resolution of metabolic acidosis. Will discontinue bicarbonate infusion reduce PRVC rate to 16. EGD yesterday showed mild gastritis in the gastric antrum, with some coffee-ground material. Angiodysplastic lesion with bleeding was found in the 2nd part of the duodenum; cauterized with complete hemostasis. CT abdomen pelvis showed no signs of bowel ischemia, probable mass right lobe of liver 11/14: Patient remains intubated sedated, critically ill but stabilizing. Still requiring 7 mcg/min of Levophed. Continued NG tube coffee-ground output. INR is 2 will transfuse 1 unit of FFP, and 10 mg vitamin K IV. Start lactulose if okay with GI, check MRI of the abdomen rule out hepatoma. Updated mother at the bedside. 11/15: Patient remains intubated still requiring Levophed to maintain blood pressure map above 65, NG tube output has decreased significantly. Hemoglobin remained stable. CPAP trial past will proceed with extubation today 11/16: Extubated yesterday breathing comfortably, Off Levophed since yesterday, UO excellent with IV Lasix given yesterday. Hb 7.7 today, INR 1.9 no evidence of active bleeding RECONSULT NOTE: 11/18: reconsulted for tachypnea and respiratory distress. evaluated. patient is tachypneic but speaking in full sentences. complaints of abdominal pain, but not unchanged from before. is significantly up from dry weight and evidence of pulmonary edema on CXR as well as 3+ edema of LEs. Gram stain on sputum with many GPCs and now on Vanc and Aztreonam for empiric coverage for HCAP pneumonia. not on spironolactone or lasix or propranolol. 11/19: good diuresis yesterday. remains tachypneic on partial NRB. edema persists. sputum culture still pending, but appears to be new HCAP pneumonia. had long talk with mother at bedside and we talked about long and short-term prognosis of ESLD. mother requests palliative care to provide additional support. 11/20: Continued deterioration and cardiopulmonary failure. We are in for long- term ventilator support and recovery is unlikely in the context of ESLD. Objective Vital Signs Date Time Temp Pulse Resp B/P (MAP) Pulse Ox O2 Delivery O2 Flow Rate FiO2 11/20/17 08:18 100 50 11/20/17 06:00 74 11/20/17 04:00 98.6 18 101/60 (74) 11/19/17 22:07 Non-Rebreather 15.00 Intake and Output 11/20/17 11/20/17 11/21/17 08:00 16:00 00:00 Intake Total 400 ml Output Total 625 ml Balance -225 ml Result Diagram: 11/19/17 0604 11/19/17 0604 Other Results Laboratory Tests Test 11/20/17 02:10 Blood Gas Puncture Site RT RADIAL Blood Gas Patient Temperature 98.6 Blood Gas HCO3 26 mmol/L (22-26) Blood Gas Base Excess 2.4 mmol/L (-2-2) Blood Gas Oxygen Saturation 98 % (90-100) Arterial Blood pH 7.45 (7.380-7.420) Arterial Blood Partial Pressure CO2 38 mmHg (38-42) Arterial Blood Partial Pressure O2 315 mmHg (61-120) Arterial Blood Oxygen Content 12.1 Vol % (12.0-20.0) Arterial Blood Carboxyhemoglobin 2.0 % (0-4) Arterial Blood Methemoglobin 0.8 % (0-2) Blood Gas Hemoglobin 8.2 G/DL (12.0-16.0) Oxygen Delivery Device VENTILATOR Blood Gas Ventilator Setting PRVC/AC Blood Gas Inspired Oxygen 100 % Imaging Chest x-ray showed no acute findings Procedures Right IJ central line, right femoral artery line, EGD, colonoscopy Objective Remarks GENERAL: middle-aged female who appears older than stated age. pale and jaundiced SKIN: Warm/dry. HEAD: Atraumatic. Normocephalic. EYES: Pupils equal and round. Positive icterus, positive pallor ENT: Mucous membranes moist, airway patent NECK: Trachea midline. No JVD. CARDIOVASCULAR: normal rate, regular rhythm. sinus. RESPIRATORY: equal chest rise. intubated now, diffuse rhonchi. GASTROINTESTINAL: Abdomen soft, mildly tender diffusely, nondistended. Stretch griggs noted. MUSCULOSKELETAL: warm, well perfused. 3+ pitting edema. NEUROLOGICAL: Sedated awake, follows commands, Moving all extremities. Nonfocal exam A/P Assessment and Plan Assessment: 42yF with End-stage liver disease course complicated by hypoxic respiratory failure and GI bleeding. now with probable HCAP pneumonia and again respiratory failure, which is likely multifactorial and includes volume overload and pneumonia. continue aggressive diuresis and antibiotics. remains critically ill and multiple organs dysfunctional: both acutely and chronically. will ask palliative care to lend support to the patient and family. goals remain aggressive. NEURO: Hepatic encephalopathy -Minimize sedation -Supplement thiamine -Lactulose 30 mL was TID- increase back to QID. RESP: Acute respiratory failure-recurrent. -Intubated and placed on mechanical ventilation on admission 11/12/17, extubated -DuoNeb every 6 hours as needed - wean o2 as tolerated for goal spo2 > 90%. CV: Hemorrhagic shock-resolved Lactic acidosis, severe-resolved Acute intravascular volume overload Pulmonary Edema - lasix 40mg iv q8h with concentrated albumin - diamox 250mg iv x 1. - spironolactone 25mg po daily - propranolol 10mg po q8h. GI/HEME: GI bleed Angiodysplasia of the second part of duodenum Liver cirrhosis Probable right hepatic mass Severe anemia requiring transfusion Coagulopathy -Protonix 40 mg iv q12, off otreotide infusions -Emergent EGD by Dr. Roche 11/12 showed angiodysplasia of the second part of duodenum, status post cauterization with complete hemostasis -Colonoscopy by Dr. Figueroa in 11/13/2017: Black stool throughout the colon. 2 colon polyps removed -Bleeding most likely from small bowel AVMs, capsule endoscopy recommended as outpatient -s/p 6 units PRBC, 2 FFP, 1 platelet. -Continue correction of coagulopathy 5 mg vitamin K -Trend H&H, INR -MRI of the liver to rule out hepatoma-no evidence of hepatoma -CA 125 elevated at 60, may be nonspecific. Plan outpatient follow-up : Acute kidney injury/prerenal Possible hepatorenal syndrome -Secondary to severe dehydration and ATN, now resolved -diuresis as above. ID: Leukocytosis Sepsis, present on admission New HCAP pneumonia - f/u new blood and sputum cultures - continue azactam and vanc ENDO: -Electrolyte replacement per protocol PROPH: -Bilateral lower extremity SCDs. Chemical DVT prophylaxis is contraindicated, continue IV Protonix LINES: -piv's Overall impression: Critically ill and deteriorating rapidly. Multisystem organ failure. Critical care 44 ins Israel Faith MD Nov 20, 2017 09:00
[2017-11-20 09:29] LABS: AUTOMATED NEUTROPHIL # 12.6 TH/MM3 (1.8-7.7); BASOPHIL % 0.2 % (0.0-2.0); EOSINOPHIL # 0.4 TH/MM3 (0-0.4); EOSINOPHIL % 2.6 % (0.0-4.0); HEMATOCRIT 28.3 % (35.0-46.0); HEMOGLOBIN 9.3 GM/DL (11.6-15.3); LYMPHOCYTE # 1.2 TH/MM3 (1.0-4.8); MEAN CELL VOLUME 98.8 FL (80.0-100.0); MEAN CORPUSCULAR HEMOGLOBIN 32.6 PG (27.0-34.0); MEAN CORPUSCULAR HGB CONC 32.9 % (32.0-36.0); MEAN PLATELET VOLUME 7.2 FL (7.0-11.0); MONOCYTE # 0.6 TH/MM3 (0-0.9); NEUT % 85.2 % (16.0-70.0); PLATELET COUNT 158 TH/MM3 (150-450); RED BLOOD COUNT 2.87 MIL/MM3 (4.00-5.30); RED CELL DISTRIBUTION WIDTH 20.5 % (11.6-17.2); WHITE BLOOD COUNT 14.7 TH/MM3 (4.0-11.0)
[2017-11-20 10:44] LABS: ALKALINE PHOSPHATASE 127 U/L (45-117); TOTAL BILIRUBIN ADULT 13.6 MG/DL (0.2-1.0); TOTAL PROTEIN 5.1 GM/DL (6.4-8.2)
[2017-11-20 10:45] LABS: ALBUMIN 2.7 GM/DL (3.4-5.0); ALT (GPT) 74 U/L (10-53); AST (GOT) 105 U/L (15-37); BICARBONATE 21.7 MEQ/L (21.0-32.0); BLOOD UREA NITROGEN 19 MG/DL (7-18); CALCIUM 7.8 MG/DL (8.5-10.1); CHLORIDE 108 MEQ/L (98-107); CREATININE 0.81 MG/DL (0.50-1.00); GLOMERULAR FILTRATION RATE 78 ML/MIN (>89); GLUCOSE,RANDOM 70 MG/DL (74-106); SODIUM (NA) 140 MEQ/L (136-145)
--- NOTE | 2017-11-20 11:05 | HHI.PR ---
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 and acute UGI Bleed. Now seems to have developed possible hospital acquired pneumonia and is currently reintubated. Objective Vital Signs Date Time Temp Pulse Resp B/P (MAP) Pulse Ox O2 Delivery O2 Flow Rate FiO2 11/20/17 08:18 100 50 11/20/17 06:00 74 11/20/17 05:20 100 50 11/20/17 04:00 98.6 70 18 101/60 (74) 96 11/20/17 04:00 73 11/20/17 02:20 100 50 11/20/17 02:00 70 11/20/17 00:40 100 100 11/20/17 00:35 100 100 11/20/17 00:30 84 11/20/17 00:30 98.5 84 19 117/72 (87) 100 11/20/17 00:27 84 120/70 (87) 11/20/17 00:25 80 107/60 (76) 11/20/17 00:25 84 117/72 11/20/17 00:19 76 94/55 (68) 96 11/20/17 00:17 76 38 96/51 (66) 100 11/20/17 00:14 77 89/51 (64) 93 11/19/17 23:44 97.0 79 30 94/53 (67) 97 11/19/17 22:15 105/53 (70) 11/19/17 22:07 97 Non-Rebreather 15.00 100 11/19/17 20:00 96.7 77 24 101/59 (73) 98 11/19/17 16:00 96.1 78 34 112/69 (83) 97 11/19/17 11:44 97 Partial Rebreather 12.00 11/19/17 11:41 96.1 77 32 97/50 (66) 99 I/O 11/19/17 11/19/17 11/19/17 11/20/17 11/20/17 11/20/17 07:00 15:00 23:00 07:00 15:00 23:00 Intake Total 340 ml 200 ml 100 ml 400 ml Output Total 800 ml 750 ml 1025 ml Balance -460 ml -550 ml 100 ml -625 ml Intake Oral 240 ml IV Total 100 ml 200 ml 100 ml 400 ml Output Urine Total 800 ml 750 ml 875 ml Gastric Drainage Total 150 ml # Voids 1 # Bowel Movements 3 2 1 Result Diagram: 11/20/1782111/20/17821 Objective Remarks Resp- Coarse breath sounds bilaterally. Intubated CV-s1s2 Abd - + BS, soft No peritoneal signs noted. Ext - calves soft NT. Edema persists Assessment and Plan Problem List: (1) Liver cirrhosis ICD Codes: K74.60 - Unspecified cirrhosis of liver (2) Alcohol dependence ICD Codes: F10.20 - Alcohol dependence, uncomplicated (3) GI bleed ICD Codes: K92.2 - Gastrointestinal hemorrhage, unspecified Status: Acute (4) Coagulopathy ICD Codes: D68.9 - Coagulation defect, unspecified Assessment and Plan 42 yof with history of alcohol abuse. admitted with ELSD and acute GI bleed with acute decompensation, then progressive worsening of overall clinical status. TBil seems to have plateaued (? due to cholestasis). Her leukocytosis has slightly improved with antibiosis. However, she is now reintubated and her CXR seems c/w possible ARDS (suspect (combination of ARDS, fluid overload due to low protein, and pneumonia). Creatinine remains WNL (??). Agree with polishing wheel setter that overall prognosis seems poor. Agree with continuing antibiosis and supportive care. Palliative care consult pending also. Would consider beginning nutritional supplementation within the next few days, as deemed appropriate. Otherwise no new recommendation. At this time, will sign off and follow loosely. Should patient survive this illness (which at this time seems doubtful, due to her current trajectory of illness), recommendations re consideration for transplant , are as documented in the initial consult note. Problem Qualifiers (1) Liver cirrhosis: (2) Alcohol dependence: Swapnil Hogan Jr., MD Nov 20, 2017 11:05
--- NOTE | 2017-11-20 11:38 | HHI.GIFU ---
Subjective Remarks Pt now intubated (Tiffany Washington) Objective Vitals I&O Vital Signs Date Time Temp Pulse Resp B/P (MAP) Pulse Ox O2 Delivery O2 Flow Rate FiO2 11/20/17 08:18 100 50 11/20/17 06:00 74 11/20/17 05:20 100 50 11/20/17 04:00 98.6 70 18 101/60 (74) 96 11/20/17 04:00 73 11/20/17 02:20 100 50 11/20/17 02:00 70 11/20/17 00:40 100 100 11/20/17 00:35 100 100 11/20/17 00:30 84 11/20/17 00:30 98.5 84 19 117/72 (87) 100 11/20/17 00:27 84 120/70 (87) 11/20/17 00:25 80 107/60 (76) 11/20/17 00:25 84 117/72 11/20/17 00:19 76 94/55 (68) 96 11/20/17 00:17 76 38 96/51 (66) 100 11/20/17 00:14 77 89/51 (64) 93 11/19/17 23:44 97.0 79 30 94/53 (67) 97 11/19/17 22:15 105/53 (70) 11/19/17 22:07 97 Non-Rebreather 15.00 100 11/19/17 20:00 96.7 77 24 101/59 (73) 98 11/19/17 16:00 96.1 78 34 112/69 (83) 97 11/19/17 11:44 97 Partial Rebreather 12.00 11/19/17 11:41 96.1 77 32 97/50 (66) 99 I/O 11/19/17 11/19/17 11/19/17 11/20/17 11/20/17 11/20/17 07:00 15:00 23:00 07:00 15:00 23:00 Intake Total 340 ml 200 ml 100 ml 400 ml Output Total 800 ml 750 ml 1025 ml Balance -460 ml -550 ml 100 ml -625 ml Intake Oral 240 ml IV Total 100 ml 200 ml 100 ml 400 ml Output Urine Total 800 ml 750 ml 875 ml Gastric Drainage Total 150 ml # Voids 1 # Bowel Movements 3 2 1 Laboratory Laboratory Tests Test 11/20/17 02:10 11/20/17 08:22 Blood Gas Puncture Site RT RADIAL Blood Gas Patient Temperature 98.6 Blood Gas HCO3 26 Blood Gas Base Excess 2.4 Blood Gas Oxygen Saturation 98 Arterial Blood pH 7.45 Arterial Blood Partial Pressure CO2 38 Arterial Blood Partial Pressure O2 315 Arterial Blood Oxygen Content 12.1 Arterial Blood Carboxyhemoglobin 2.0 Arterial Blood Methemoglobin 0.8 Blood Gas Hemoglobin 8.2 Oxygen Delivery Device VENTILATOR Blood Gas Ventilator Setting PRVC/AC Blood Gas Inspired Oxygen 100 White Blood Count 14.7 Red Blood Count 2.87 Hemoglobin 9.3 Hematocrit 28.3 Mean Corpuscular Volume 98.8 Mean Corpuscular Hemoglobin 32.6 Mean Corpuscular Hemoglobin Concent 32.9 Red Cell Distribution Width 20.5 Platelet Count 158 Mean Platelet Volume 7.2 Neutrophils (%) (Auto) 85.2 Lymphocytes (%) (Auto) 8.0 Monocytes (%) (Auto) 4.0 Eosinophils (%) (Auto) 2.6 Basophils (%) (Auto) 0.2 Neutrophils # (Auto) 12.6 Lymphocytes # (Auto) 1.2 Monocytes # (Auto) 0.6 Eosinophils # (Auto) 0.4 Basophils # (Auto) 0.0 CBC Comment DIFF FINAL Differential Comment Blood Urea Nitrogen 19 Creatinine 0.81 Random Glucose 70 Total Protein 5.1 Albumin 2.7 Calcium Level 7.8 Alkaline Phosphatase 127 Aspartate Amino Transf (AST/SGOT) 105 Alanine Aminotransferase (ALT/SGPT) 74 Total Bilirubin 13.6 Sodium Level 140 Potassium Level 4.1 Chloride Level 108 Carbon Dioxide Level 21.7 Anion Gap 10 Estimat Glomerular Filtration Rate 78 Magnesium Level 1.9 Date/Time Source Procedure Growth Status 11/18/17 15:40 Blood Peripheral Aerobic Blood Culture - Preliminary NO GROWTH IN 2 DAYS Resulted 11/18/17 15:40 Blood Peripheral Anaerobic Blood Culture - Preliminary NO GROWTH IN 2 DAYS Resulted 11/20/17 01:22 Sputum Endotracheal Gram Stain Pending Received 11/20/17 01:22 Sputum Endotracheal Sputum Culture Pending Received 11/18/17 17:02 Urine Catheterized Urine Urine Culture - Final NO GROWTH IN 48 HOURS. Complete Imaging Last Impressions Chest X-Ray 11/20/17 0000 Signed Impressions: Service Date/Time: Monday, November 20, 2017 00:45 - CONCLUSION: Diffuse airspace disease, much worse over the past 2 days. Appropriate position of the endotracheal tube tip. Janusz Curtis MD Abdomen MRI 11/14/17 0000 Signed Impressions: Service Date/Time: Tuesday, November 14, 2017 13:50 - CONCLUSION: 1. No evidence of abnormal enhancing hepatic mass. 2. Cirrhosis of the liver, ascites, recanalization of the umbilical vein, and perigastric varices consistent with portal hypertension. 3. Small bilateral pleural effusions with adjacent compressive atelectasis. Gordon Klein MD Abdomen X-Ray 11/12/171951 Signed Impressions: Service Date/Time: Sunday, November 12, 2017 19:56 - CONCLUSION: NG tube tip is at the GE junction. Janusz Curtis MD Abdomen/Pelvis CT 11/12/17 0000 Signed Impressions: Service Date/Time: Sunday, November 12, 2017 22:00 - CONCLUSION: 1. Cirrhosis with small ascites and a recanalized umbilical vein with caput medusa. Possible mass of the right hepatic lobe and a followup nonemergent MRI of the abdomen with and without contrast is recommended. 2. Orogastric tube is coiled in the stomach. 3. No obstruction or acute inflammatory changes are seen of the gastrointestinal tract. 4. Atelectasis/infiltrate left lung base. Trace atelectasis right lung base. Janusz Curtis MD Physical Exam HEENT: Normocephalic; atraumatic; +icterus intubated CHEST: coarse CARDIAC: RRR ABDOMEN: Distended, protruding umbilicus, soft,diffuse TTP, bowel sounds active , ascites EXTREMITIES: Generalized edema SKIN: (+) jaundice GLASS BLOWER:sedated on vent. opens eyes (Tiffany Washington) Assessment and Plan Plan Assessment: - Cirrhosis- secondary to ETOH. MELD-25 DF-41 Concern for possible mass of right hepatic lobe of the liver on CT MRI abdomen (11/14) --> No evidence of abnormal enhancing hepatic mass. Cirrhosis of the liver, ascites, recanalization of the umbilical vein, and perigastric varices consistent with portal HTN. Tumor markers: AFP-2.5 CEA-4.3 CA 19-9-13.5 [id number] - Anemia with reports of dark stool and coffee ground emesis on admission S/P EGD --> Class B esophagitis. Mild gastritis in the gastric antrum, some coffee grounds. No blood. Angiodysplastic lesion with bleeding was found in the 2nd part of the duodenum, cautery with complete hemostasis. S/P Colonoscopy --> Black stool spread throughout the colon and small pockets may interfere with the vision of small lesions. 1 cm polyp in the ascending colon removed by snare. 1 cm polyp in the sigmoid removed by snare. No sign of active bleeding. Could be from AVM in small bowel. Pathology - 2 adenomatous polyps. 11/13/2017 42-year-old lady with significant anemia questionable etiology upper endoscopy showed AVM, hemoglobin stable now, had a colonoscopy done today Patient also has cirrhosis most likely secondary to alcohol, severe elevation of the liver function tests including total bilirubin patient also has a possible mass in the liver and today her CA 125 came back elevated 11/14/17 lessening coffee ground output OGT. LFTs trending up. ETOH hepatitis vs liver mass vs shock liver? DF 49. MRI liver pending. HH stable. NH 70 11/15/17 decreasing coffee ground output. MRI showed cirrhosis, ascites, varices, portal HTN, no evidence mass. s/p extubation. HH stable. LFTs trending down. colon bx adenomatous polyp (11/16) Anemia- no obvious GIB- flexiseal with green/brown liquid stool. No longer has OG and no reports of emesis. H/H dropped some, hgb from 8.3 to 7.7 Cirrhosis-AST and ALT trending down. T bili remains elevated at 9.5. DF of 41 would likely benefit from steroids, however initial concern for sepsis pt is on 7 day course of Azactam with plans to repeat blood cultures after 7 days, initial blood cultures on 11/12 are preliminary negative. Will add Pentoxifylline Ammonia elevated at 70 on 11/13 no recheck, pt is on Lactulose Thrombocytopenia noted- platelets 97 Coagulopathy- INR 1.9 11/17/17 pt lethargic. transaminases improving, tbil is worsening. pt coughing up bloody clots per mother. HH stable thrombocytopenia worsening. 11/18/2017 patient is more lethargic today on nonrebreather mask, mild elevation of her white count she had some chest discomfort, and increase in her liver function test Need to rule out infectious process, could be atelectasis related causing her shortness of breath and elevated white blood cells 11/19/17 Patient remain critically ill, on partial NRB, edema better but persist. Sputum cx pending, ? HCAP pneumonia No bleeding reported, hh stable. Tumor markers normal except elevation Ca 125 11/20/17 now intubated. palliative care consult pending. WBC trending up. HH is stable. LFTs mild increase from yesterday Plan: - Pentoxifylline - lactulose - continue diuretics - Monitor labs - ppi -Notify GI if active bleeding - continue abx - capsule endoscopy outpatient - await palliative care consult pt seen by myself and Dr Torres and this note is on her behalf (Tiffany Washington) Tiffany Washington Nov 20, 2017 11:38 Raysa Torres MD Nov 20, 2017 16:34
--- NOTE | 2017-11-20 12:15 | PD.CONS ---
Consult Service Palliative Care . Consult Requested By Dr. Steele . Primary Care Physician No Primary Care Physician . Reason for Consultation a. To assist with evaluation and management of symptoms including: Pain/ dyspnea b. To assist medical decision maker(s) with: better understanding of current medical conditions; weighing benefits/burdens of medical treatment options; making medical treatment decisions. . HPI History of Present Illness Ms. Gant is a 42 year old female with a known history of liver cirrhosis secondary to EtOH abuse who presented to [facility] ED in [place] on 11/12 for evaluation of dark tarry stools and black, coffee-ground emesis that began the previous night. Patient's mother originally reported the patient had quit drinking 18 months ago, but it was later revealed that the patient drank alcohol within the past 4-5 weeks. Additionally, patient/family reports the patient has had progressively increased generalized weakness with associated falls. Additional diagnostic data: * Vital signs: Pulse 90, respirations 18, BP 111/54, oxygen saturation 100%, oral temperature 97.5. * WBC: 21.3, hemoglobin 3.4, hematocrit 10.5, platelets 327, neutrophils 83.6% * Sodium: 125, potassium 4.5, carbon dioxide 9.8, glucose 51, calcium 7.3, prot corrected calcium 8.8 * BUN: 80, creatinine 1.90, GFR 29 * Total bilirubin: 3.7, AST 446, ALT 179, alkaline phosphatase 139 * Ammonia: 46 * Total protein: 4.4, albumin 1.9 * PT: 19.2, INR 1.9, APTT 23.4 * Ethyl alcohol: <3 * Urine culture-negative * Blood cultures-negative Patient was jaundice on exam. She had a large episode of coffee-ground emesis in the ED. Hemoglobin was critically low at 3.4. Patient received 1L of normal saline bolus. Right IJ central line was placed and PRBCs as well as FFP was ordered for INR of 1.9. Patient's blood pressure began to trend downward, but stabilized after patient was transfused with 1 unit of emergency release blood. Patient also received IV thiamine, zofran, octreotide bolus, protonix bolus and calcium. She was placed on bicarb infusion, protonix infusion and octreotide infusion prior to being transferred to the main hospital for emergent EGD. Upon arrival to [place] [facility], patient remained alert but confused. Lactic acid was 25 and additional IVF bolus was ordered. Patient was intubated for airway protection. Started on empiric antibiotics with IV vancomycin, IV azactam, IV flagyl. Patient received 6 units of PRBCs, 2 units of FFP and 1 unit of platelets overnight. Requiring pressor support. EGD showed mild gastritis in the gastric antrum, with some coffee-ground material. Angiodysplastic lesion with bleeding was found in the 2nd part of the duodenum; cauterized with complete hemostasis. CT abdomen pelvis showed no signs of bowel ischemia, probable mass right lobe of liver. Pathology revealed adenomatous polyps. CA 125 elevated: 65.5 MRI of the abdomen on 11/14/2017 showed no evidence of abnormal enhancing hepatic mass; cirrhosis of the liver, ascites, week recanalization of the umbilical vein, and perigastric varices consistent with portal hypertension. Small bilateral pleural effusions with adjacent compressive atelectasis. Patient was extubated and weaned off Levophed on 11/15/2017. Dr. Hogan, transplant surgery, was asked to evaluate the patient. Per Dr. Hogan, patient would need to undergo substance abuse rehab counseling (SARP) for at least 3-6 months, she can then be evaluated in [place] for consideration of possible liver transplant. Critical care was reconsulted on 11/18/17 secondary to worsening respiratory status. Patient was tachypneic but able to speak in full sentences. She complained of ongoing abdominal pain; significant increase in dry weight with evidence of pulmonary edema on chest x-ray as well as 3+ edema in lower extremities. Gram stain on positive with many GPC's; patient has been on vancomycin and aztreonam for empiric coverage of HCAP pneumonia. Palliative Care was consulted to assist with symptom management and to discuss with the family the benefits and burdens of her current illnesses and the options regarding future care. On exam the patient showing no s/s non-verbal pain; sedated with propofol and fentanyl. Patient was reintubated overnight on secondary to respiratory failure, likely multifactorial including volume overload and pneumonia. Follow-up chest x-ray on 11/20/2017, if acutely worse in recent days. . Function/Cognitive Trajectory Patient is a 42-year-old female with a known history of liver cirrhosis. She recently experienced generalized weakness with associated falls; her mother states the patient thought she had some type of infection. She was hospitalized 11/12/2017 with a GIB bleed and septic shock. . Review of Systems ROS Limitations: Clinical Condition (ROS obtained through review of medical record and family report), Intubated, Altered Mental Status Constitutional: COMPLAINS OF: Generalized weakness Gastrointestinal: COMPLAINS OF: Black stools, Vomiting blood Integumentary: COMPLAINS OF: Abnormal pigmentation (Jaundice) Neurologic: COMPLAINS OF: Abnormal gait, Poor Balance Psychiatric: COMPLAINS OF: Confusion Past Family Social History Coded Allergies: Penicillins (Verified Allergy, Intermediate, HIVES, 11/12/17) Past Medical History Liver cirrhosis . Past Surgical History Pending conversations with patient's family . Reported Medications Per report, patient is not on any home medications. . Current Medications Medications (Trade) Dose Ordered Sig/Herminio Route Start Time Stop Time Status Last Admin (NS Flush) 2 ml UNSCH PRN IV FLUSH 11/12/17 12:15 11/20/17 08:35 Miscellaneous Information 1 Q361D XX 11/12/17 14:15 (Chlorhexidine 2% Cloth) Taper DAILY@04 TOP 11/13/17 04:00 11/09/18 03:59 (Chlorhexidine 2% Cloth) 3 pack UNSCH PRN TOP 11/12/17 14:15 (Brethine Inj) 1 mg UNSCH PRN SQ 11/12/17 14:45 (Peridex 0.12% Liq) 15 ml BID@08,20 MT 11/12/17 20:00 11/20/17 08:35 Potassium Chloride 100 ml @ 50 mls/hr Q2H PRN IV 11/13/17 06:45 11/13/17 13:11 Potassium Chloride 100 ml @ 50 mls/hr Q2H PRN IV 11/13/17 06:45 (K-Lyte Cl Eff) 50 meq UNSCH PRN PO 11/13/17 06:45 Potassium Chloride 100 ml @ 25 mls/hr UNSCH PRN IV 11/13/17 06:45 Potassium Chloride 100 ml @ 50 mls/hr Q2H PRN IV 11/13/17 06:45 Magnesium Sulfate 4 gm/Sodium Chloride 100 ml @ 50 mls/hr UNSCH PRN IV 11/13/17 06:45 (Mag-Ox) 800 mg UNSCH PRN PO 11/13/17 06:45 Magnesium Sulfate 2 gm/Sodium Chloride 100 ml @ 50 mls/hr UNSCH PRN IV 11/13/17 06:45 (K-Phos) 2,000 mg Q4H PRN PO 11/13/17 06:45 Sodium Phosphate 30 mmol/Sodium Chloride 250 ml @ 42 mls/hr UNSCH PRN IV 11/13/17 06:45 (K-Phos) 2,000 mg UNSCH PRN PO/TUBE 11/13/17 06:45 Potassium Phosphate 30 mmol/ Sodium Chloride 260 ml @ 42 mls/hr UNSCH PRN IV 11/13/17 06:45 (Zofran Inj) 4 mg Q6H PRN IV PUSH 11/15/17 17:30 11/19/17 06:08 (Vitamin B1) 100 mg DAILY PO 11/16/17 09:00 11/20/17 08:37 (TRENtal SR) 400 mg Q8HR PO 11/16/17 14:00 11/19/17 22:16 (Protonix) 40 mg Q12HR PO 11/17/17 09:00 11/19/17 22:15 (Mephyton Liq) 5 mg Q24H PO 11/17/17 15:00 11/20/17 14:59 11/19/17 15:00 (KCl) 20 meq Q12HR PO 11/17/17 21:00 11/19/17 22:16 (Theragran) 1 tab DAILY PO 11/18/17 09:00 11/20/17 08:37 (Duoneb Neb) 1 ampule Q4HR WHILE AWAKE NEB NEB 11/18/17 12:00 11/20/17 08:28 (Albuterol Neb) 2.5 mg Q2HR NEB PRN NEB 11/18/17 09:30 (Aldactone) 25 mg DAILY PO 11/18/17 09:45 11/20/17 08:36 (Inderal) 10 mg Q8HR PO 11/18/17 14:00 11/20/17 06:00 Pharmacy Profile Note 0 ml @ 0 mls/hr UNSCH OTHER 11/18/17 15:15 Vancomycin HCl 1500 mg/Sodium Chloride 515 ml @ 257.5 mls/ hr Q12H IV 11/19/17 04:00 11/20/17 05:10 Miscellaneous Information SPECIFIC LAB TO BE DRAWN:[facility]... ONCE ONCE .XX 11/20/17 15:45 11/20/17 15:46 (Lactulose Liq) 30 ml QID PO 11/18/17 18:00 11/20/17 08:36 (Lasix Inj) 40 mg Q8H IV PUSH 11/18/17 19:30 11/20/17 03:59 Albumin Human 100 ml @ 60 mls/hr Q8H IV 11/18/17 19:30 11/20/17 11:03 Fentanyl Citrate 250 ml @ 5 mls/hr TITRATE PRN IV 11/20/17 00:15 11/20/17 00:30 (Versed Inj) 2 mg Q15M PRN IV PUSH 11/20/17 00:15 Propofol 100 ml @ 3.015 mls/ hr TITRATE PRN IV 11/20/17 00:15 11/20/17 10:54 (Peridex 0.12% Liq) 15 ml BID@08,20 MT 11/20/17 00:15 11/20/17 01:00 Phenylephrine HCl 40 mg/Dextrose 500 ml @ 30 mls/hr TITRATE PRN IV 11/20/17 00:15 11/20/17 00:25 (Brethine Inj) 1 mg UNSCH PRN SQ 11/20/17 00:15 Metronidazole 100 ml @ 100 mls/hr Q6H IV 11/20/17 02:00 11/20/17 08:35 Aztreonam 2000 mg/ Sodium Chloride 100 ml @ 200 mls/hr Q8H IV 11/20/17 01:00 11/20/17 08:35 , Family History Pending further conversation with family . Substance Use Tobacco: Active smoker, smokes approximately 1/2 PPD Alcohol: History of EtOH abuse. It was thought the patient had quit drinking 18 months ago, but at least she later stated she last drank 4-5 weeks ago. Prescription med abuse: None known Illicits: None known . Psychosocial History Patient is originally from [place]. She is not ; she has 1 son ( Deny) who is 20 years old. Patient moved to [place] with her mother in September, to try to "get her life on track." Apparently the patient's boyfriend was recently killed and an MCA, and another friend in his sleep. 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 . Spiritual/Cultural Factors Hoahaoism magui. . Documented care wishes: No known documented care wishes were completed. . Today's verbally stated goals: Given patient's current clinical condition, she is unable to participate in establishing medical treatment goals at this time. . Family/friends goals: Patient's mother verbalizes understanding that her daughter is critically ill and may not survive this hospitalization, but she would like to give her daughter some time to see if she can turn things around. She requested that the patient's CODE STATUS be changed to an ALTERNATE CODE-INTUBATION ONLY. If the patient's medical condition does not improve, they will likely not proceed with trach/PEG tube placement but transition to comfort focused care at that time. . Ethical and Legal Issues Patient is not . Per [place] statutes, in the absence of written advanced directives healthcare proxy decision making would fall to the patient' s only adult son. However, Deny (son) has opted out of HCP decision-making. Patient's father is , therefore healthcare proxy decision making falls to the patient's mother (Ruma Gant). Physical Exam Vital Signs Date Time Temp Pulse Resp B/P (MAP) Pulse Ox O2 Delivery O2 Flow Rate FiO2 11/20/17 08:18 100 50 11/20/17 06:00 74 11/20/17 05:20 100 50 11/20/17 04:00 98.6 70 18 101/60 (74) 96 11/20/17 04:00 73 11/20/17 02:20 100 50 11/20/17 02:00 70 11/20/17 00:40 100 100 11/20/17 00:35 100 100 11/20/17 00:30 84 11/20/17 00:30 98.5 84 19 117/72 (87) 100 11/20/17 00:27 84 120/70 (87) 11/20/17 00:25 80 107/60 (76) 11/20/17 00:25 84 117/72 11/20/17 00:19 76 94/55 (68) 96 11/20/17 00:17 76 38 96/51 (66) 100 11/20/17 00:14 77 89/51 (64) 93 11/19/17 23:44 97.0 79 30 94/53 (67) 97 11/19/17 22:15 105/53 (70) 11/19/17 22:07 97 Non-Rebreather 15.00 100 11/19/17 20:00 96.7 77 24 101/59 (73) 98 11/19/17 16:00 96.1 78 34 112/69 (83) 97 11/19/17 11:44 97 Partial Rebreather 12.00 11/19/17 11:41 96.1 77 32 97/50 (66) 99 . Exam CONSTITUTIONAL/GENERAL: This is an adequately nourished, jaundice, female patient who is currently intubated on mechanical ventilation TUBES/LINES/DRAINS: PIV, CVL, arterial line, OGT, ETT, Ward catheter, soft restraints SKIN: Jaundice. Ecchymoses on upper extremities. No wounds seen anteriorly. Skin temperature appropriate. Not diaphoretic. HEAD: Atraumatic. Normocephalic. EYES: Pupils equal and round and reactive. Extraocular motions intact. + scleral icterus. No injection or drainage. Fundi not examined. ENT: Hearing grossly normal. Nose without bleeding or purulent drainage. NECK: Trachea midline. S CARDIOVASCULAR: Regular rate and rhythm without murmurs, gallops, or rubs. No JVD. Peripheral pulses symmetric. RESPIRATORY/CHEST: Symmetric, unlabored respirations. Breath sounds diminished bilaterally. Diffuse rhonchi GASTROINTESTINAL: Abdomen soft, non-tender, slightly distended. Bowel sounds present. GENITOURINARY: Without palpable bladder distension. Ward catheter in place. MUSCULOSKELETAL: No obvious deformities. 3+ pitting edema. LYMPHATICS: No palpable cervical or supraclavicular adenopathy. NEUROLOGICAL: Sedated, arouses slightly to verbal stimuli PSYCHIATRIC: No obvious anxiety/depression. No apparent hallucinations or other psychotic thought process. . Diagnostic Tests Laboratory Laboratory Tests Test 11/18/17 05:42 11/18/17 09:20 11/18/17 09:23 11/18/17 15:30 White Blood Count 13.0 TH/MM3 (4.0-11.0) Red Blood Count 2.90 MIL/MM3 (4.00-5.30) Hemoglobin 9.2 GM/DL (11.6-15.3) Hematocrit 27.2 % (35.0-46.0) Mean Corpuscular Volume 93.6 FL (80.0-100.0) Mean Corpuscular Hemoglobin 31.8 PG (27.0-34.0) Mean Corpuscular Hemoglobin Concent 34.0 % (32.0-36.0) Red Cell Distribution Width 18.5 % (11.6-17.2) Platelet Count 122 TH/MM3 (150-450) Mean Platelet Volume 7.2 FL (7.0-11.0) Neutrophils (%) (Auto) 80.0 % (16.0-70.0) Lymphocytes (%) (Auto) 7.0 % (9.0-44.0) Monocytes (%) (Auto) 11.3 % (0.0-8.0) Eosinophils (%) (Auto) 1.2 % (0.0-4.0) Basophils (%) (Auto) 0.5 % (0.0-2.0) Neutrophils # (Auto) 10.4 TH/MM3 (1.8-7.7) Lymphocytes # (Auto) 0.9 TH/MM3 (1.0-4.8) Monocytes # (Auto) 1.5 TH/MM3 (0-0.9) Eosinophils # (Auto) 0.2 TH/MM3 (0-0.4) Basophils # (Auto) 0.1 TH/MM3 (0-0.2) CBC Comment DIFF FINAL Differential Comment Prothrombin Time 19.1 SEC (9.8-11.6) Prothromb Time International Ratio 1.9 RATIO Blood Urea Nitrogen 12 MG/DL (7-18) Creatinine 0.70 MG/DL (0.50-1.00) Random Glucose 96 MG/DL (74-106) Total Protein 4.6 GM/DL (6.4-8.2) Albumin 2.2 GM/DL (3.4-5.0) Calcium Level 7.6 MG/DL (8.5-10.1) Magnesium Level 2.0 MG/DL (1.5-2.5) Alkaline Phosphatase 129 U/L (45-117) Aspartate Amino Transf (AST/SGOT) 117 U/L (15-37) Alanine Aminotransferase (ALT/SGPT) 133 U/L (10-53) Total Bilirubin 14.0 MG/DL (0.2-1.0) Sodium Level 139 MEQ/L (136-145) Potassium Level 3.9 MEQ/L (3.5-5.1) Chloride Level 106 MEQ/L (98-107) Carbon Dioxide Level 25.4 MEQ/L (21.0-32.0) Anion Gap 8 MEQ/L (5-15) Estimat Glomerular Filtration Rate 92 ML/MIN (>89) Blood Gas Puncture Site LT RADIAL Blood Gas Patient Temperature 98.6 Blood Gas HCO3 25 mmol/L (22-26) Blood Gas Base Excess 2.1 mmol/L (-2-2) Blood Gas Oxygen Saturation 94 % (90-100) Arterial Blood pH 7.49 (7.380-7.420) Arterial Blood Partial Pressure CO2 34 mmHg (38-42) Arterial Blood Partial Pressure O2 76 mmHg (61-120) Arterial Blood Oxygen Content 11.1 Vol % (12.0-20.0) Arterial Blood Carboxyhemoglobin 2.3 % (0-4) Arterial Blood Methemoglobin 0.7 % (0-2) Blood Gas Hemoglobin 8.3 G/DL (12.0-16.0) Oxygen Delivery Device NRB Blood Gas Liter Flow 12 L/M Total Creatine Kinase 62 U/L (26-192) 56 U/L (26-192) Troponin I LESS THAN 0.02 NG/ML LESS THAN 0.02 NG/ML Lipase 486 U/L (73-393) D-Dimer Quantitative (PE/DVT) 5.45 MG/L FEU (0.00-0.50) Ammonia 41 MCMOL/L (11-32) Test 11/18/17 17:02 11/18/17 21:45 11/19/17 06:04 11/20/17 02:10 Urine Color DARK-ORANGE (YELLW/STRAW) Urine Turbidity CLEAR (CLEAR) Urine pH 6.0 (5.0-8.5) Urine Specific [place] 1.018 (1.002-1.035) Urine Protein TRACE mg/dL (NEG-TRACE) Urine Glucose (UA) NEG mg/dL (NEG) Urine Ketones NEG mg/dL (NEG) Urine Occult Blood NEG (NEG) Urine Nitrite NEG (NEG) Urine Bilirubin LARGE (NEG) Urine Urobilinogen LESS THAN 2.0 MG/DL (LESS Urine Leukocyte Esterase NEG (NEG) Urine RBC 1 /hpf (0-3) Urine WBC 2 /hpf (0-5) Urine Squamous Epithelial Cells <1 /hpf (0-5) Urine Bacteria MOD /hpf (NONE) Urine Mucus FEW /lpf (OCC) Microscopic Urinalysis Comment CATH-CULTURE IND Total Creatine Kinase 62 U/L (26-192) Troponin I LESS THAN 0.02 NG/ML White Blood Count 18.0 TH/MM3 (4.0-11.0) Red Blood Count 2.81 MIL/MM3 (4.00-5.30) Hemoglobin 9.0 GM/DL (11.6-15.3) Hematocrit 26.8 % (35.0-46.0) Mean Corpuscular Volume 95.6 FL (80.0-100.0) Mean Corpuscular Hemoglobin 32.1 PG (27.0-34.0) Mean Corpuscular Hemoglobin Concent 33.6 % (32.0-36.0) Red Cell Distribution Width 18.9 % (11.6-17.2) Platelet Count 130 TH/MM3 (150-450) Mean Platelet Volume 7.1 FL (7.0-11.0) Neutrophils (%) (Auto) 88.0 % (16.0-70.0) Lymphocytes (%) (Auto) 4.6 % (9.0-44.0) Monocytes (%) (Auto) 6.9 % (0.0-8.0) Eosinophils (%) (Auto) 0.4 % (0.0-4.0) Basophils (%) (Auto) 0.1 % (0.0-2.0) Neutrophils # (Auto) 15.8 TH/MM3 (1.8-7.7) Lymphocytes # (Auto) 0.8 TH/MM3 (1.0-4.8) Monocytes # (Auto) 1.2 TH/MM3 (0-0.9) Eosinophils # (Auto) 0.1 TH/MM3 (0-0.4) Basophils # (Auto) 0.0 TH/MM3 (0-0.2) CBC Comment DIFF FINAL Differential Comment Blood Urea Nitrogen 14 MG/DL (7-18) Creatinine 0.61 MG/DL (0.50-1.00) Random Glucose 102 MG/DL (74-106) Total Protein 4.8 GM/DL (6.4-8.2) Albumin 2.5 GM/DL (3.4-5.0) Calcium Level 7.6 MG/DL (8.5-10.1) Magnesium Level 1.8 MG/DL (1.5-2.5) Alkaline Phosphatase 111 U/L (45-117) Aspartate Amino Transf (AST/SGOT) 77 U/L (15-37) Alanine Aminotransferase (ALT/SGPT) 89 U/L (10-53) Total Bilirubin 13.4 MG/DL (0.2-1.0) Sodium Level 139 MEQ/L (136-145) Potassium Level 3.7 MEQ/L (3.5-5.1) Chloride Level 104 MEQ/L (98-107) Carbon Dioxide Level 26.5 MEQ/L (21.0-32.0) Anion Gap 9 MEQ/L (5-15) Estimat Glomerular Filtration Rate 108 ML/MIN (>89) Blood Gas Puncture Site RT RADIAL Blood Gas Patient Temperature 98.6 Blood Gas HCO3 26 mmol/L (22-26) Blood Gas Base Excess 2.4 mmol/L (-2-2) Blood Gas Oxygen Saturation 98 % (90-100) Arterial Blood pH 7.45 (7.380-7.420) Arterial Blood Partial Pressure CO2 38 mmHg (38-42) Arterial Blood Partial Pressure O2 315 mmHg (61-120) Arterial Blood Oxygen Content 12.1 Vol % (12.0-20.0) Arterial Blood Carboxyhemoglobin 2.0 % (0-4) Arterial Blood Methemoglobin 0.8 % (0-2) Blood Gas Hemoglobin 8.2 G/DL (12.0-16.0) Oxygen Delivery Device VENTILATOR Blood Gas Ventilator Setting [facility]/AC Blood Gas Inspired Oxygen 100 % Test 11/20/17 08:22 White Blood Count 14.7 TH/MM3 (4.0-11.0) Red Blood Count 2.87 MIL/MM3 (4.00-5.30) Hemoglobin 9.3 GM/DL (11.6-15.3) Hematocrit 28.3 % (35.0-46.0) Mean Corpuscular Volume 98.8 FL (80.0-100.0) Mean Corpuscular Hemoglobin 32.6 PG (27.0-34.0) Mean Corpuscular Hemoglobin Concent 32.9 % (32.0-36.0) Red Cell Distribution Width 20.5 % (11.6-17.2) Platelet Count 158 TH/MM3 (150-450) Mean Platelet Volume 7.2 FL (7.0-11.0) Neutrophils (%) (Auto) 85.2 % (16.0-70.0) Lymphocytes (%) (Auto) 8.0 % (9.0-44.0) Monocytes (%) (Auto) 4.0 % (0.0-8.0) Eosinophils (%) (Auto) 2.6 % (0.0-4.0) Basophils (%) (Auto) 0.2 % (0.0-2.0) Neutrophils # (Auto) 12.6 TH/MM3 (1.8-7.7) Lymphocytes # (Auto) 1.2 TH/MM3 (1.0-4.8) Monocytes # (Auto) 0.6 TH/MM3 (0-0.9) Eosinophils # (Auto) 0.4 TH/MM3 (0-0.4) Basophils # (Auto) 0.0 TH/MM3 (0-0.2) CBC Comment DIFF FINAL Differential Comment Blood Urea Nitrogen 19 MG/DL (7-18) Creatinine 0.81 MG/DL (0.50-1.00) Random Glucose 70 MG/DL (74-106) Total Protein 5.1 GM/DL (6.4-8.2) Albumin 2.7 GM/DL (3.4-5.0) Calcium Level 7.8 MG/DL (8.5-10.1) Alkaline Phosphatase 127 U/L (45-117) Aspartate Amino Transf (AST/SGOT) 105 U/L (15-37) Alanine Aminotransferase (ALT/SGPT) 74 U/L (10-53) Total Bilirubin 13.6 MG/DL (0.2-1.0) Sodium Level 140 MEQ/L (136-145) Potassium Level 4.1 MEQ/L (3.5-5.1) Chloride Level 108 MEQ/L (98-107) Carbon Dioxide Level 21.7 MEQ/L (21.0-32.0) Anion Gap 10 MEQ/L (5-15) Estimat Glomerular Filtration Rate 78 ML/MIN (>89) Magnesium Level 1.9 MG/DL (1.5-2.5) . Result Diagram: 11/20/17 0822 11/20/17 0822 Microbiology Microbiology Date/Time Source Procedure Growth Status 11/18/17 15:40 Blood Peripheral Aerobic Blood Culture - Preliminary NO GROWTH IN 2 DAYS Resulted 11/18/17 15:40 Blood Peripheral Anaerobic Blood Culture - Preliminary NO GROWTH IN 2 DAYS Resulted 11/18/17 15:30 Blood Peripheral Aerobic Blood Culture - Preliminary NO GROWTH IN 2 DAYS Resulted 11/18/17 15:30 Blood Peripheral Anaerobic Blood Culture - Preliminary NO GROWTH IN 2 DAYS Resulted 11/20/17 01:22 Sputum Endotracheal Gram Stain Pending Received 11/20/17 01:22 Sputum Endotracheal Sputum Culture Pending Received 11/18/17 10:15 Sputum Expectorated Sputum Gram Stain - Final Complete 11/18/17 10:15 Sputum Expectorated Sputum Sputum Culture - Final HEAVY GROWTH NORMAL RESPIRATORY FABIAN Complete 11/18/17 17:02 Urine Catheterized Urine Urine Culture - Final NO GROWTH IN 48 HOURS. Complete Imaging Last 72 hours Impressions Chest X-Ray 11/20/17 0000 Signed Impressions: Service Date/Time: Monday, November 20, 2017 00:45 - CONCLUSION: Diffuse airspace disease, much worse over the past 2 days. Appropriate position of the endotracheal tube tip. Janusz Curtis MD Chest X-Ray 11/18/17 0000 Signed Impressions: Service Date/Time: Saturday, November 18, 2017 09:04 - CONCLUSION: Increasing airspace disease both lungs. Sergio Otoole MD FACR . Procedures 11/12/2017: Intubation 11/12/2017: NGT placed; later OGT placed 11/12/2017:Right IJ line placed, tip in the superior vena cava. 11/12/2017: Right femoral arterial line placement 11/12/2017: EGD with ablation 11/13/2017: Colonoscopy 11/15/2017: Extubated 11/20/2017: Reintubated . Patient/Family Conference Present at Family Conference: Met with patient's son at bedside this morning. Later met with patient's son and mother at bedside and privately in the patient conference room. . Family Conference Location: Bedside, Consult Room Issues Discussed: * Palliative care role, purpose, approach * Additional medical, psychosocial, and spiritual history * Patients general health, functional status, and cognitive changes in the months leading up to the current hospitalization * Patient/family understanding of the current medical problems * Patient/family understanding of prognosis * Patients goals of care as best understood from advance directives and/or conversations and/or values * Current medical treatment options and benefits/burdens of those options * Likely scenarios comparing ongoing aggressive care with a transition to comfort measures only * Questions answered to the best of my ability * Palliative care contact information provided . Assessment and Plan Disease Oriented Problem List: (1) Hemorrhagic shock (2) Upper gastrointestinal bleed (3) Severe anemia (4) Metabolic acidosis (5) Coagulopathy (6) Liver cirrhosis (7) Alcohol dependence (8) Encephalopathy (9) Acute kidney failure (10) Lactic acidemia Symptom Scale: Pertinent Non-Medical Issues Psychosocial:Patient is originally from [place]. She is not ; she has 1 son (Deny) who is 20 years old. Patient moved to [place] with her mother in September, to try to "get her life on track." Apparently the patient's boyfriend was recently killed and an MCA, and another friend in his sleep. 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 Spiritual: Hoahaoism magui Legal:Patient is not . Per [place] statutes, in the absence of written advanced directives healthcare proxy decision making would fall to the patient' s only adult son. However, Deny (son) has opted out of HCP decision-making. Patient's father is , therefore healthcare proxy decision making falls to the patient's mother (Ruma Gant). Ethical issues impacting care: No known ethical issues impacting care at this time. . Important Contacts Ruma Gant, mother: [phone] . Prognosis Patient is a 42-year-old female with a known history of liver cirrhosis who was admitted with GIB and HCAP Pneumonia. Having ongoing deterioration and cardiopulmonary failure requiring reintubation on 11/20/2017. Patient is high risk for ongoing decline and complications, recovery is unlikely in the context of ESLD. . Code Status: Alternative Code (Intubation only) Plan * ALTERNATE CODE-intubation only * Patient is not . Per [place] statutes, in the absence of written advanced directives healthcare proxy decision making would fall to the patient' s only adult son. However, Deny (son) has opted out of HCP decision-making. Patient's father is , therefore healthcare proxy decision making falls to the patient's mother (Ruma Gant). * Discussed patient with bedside nurse and Dr. Hou * Palliative care contact information provided to the patient's family * GOALS: Patient's mother verbalizes understanding that her daughter is critically ill and may not survive this hospitalization, but she would like to give her daughter some time to see if she can turn things around. She requested that the patient's CODE STATUS be changed to an ALTERNATE CODE- INTUBATION ONLY. If the patient's medical condition does not improve, they will likely not proceed with trach/PEG tube placement but transition to comfort focused care at that time. * Symptom management: == Dyspnea: Intubated 11/12/17-11/15/17. Having worsening respiratory status requiring reintubation on 11/20/2017. Sputum culture pending, appears to have new HCAP pneumonia. Follow-up chest x-ray showing diffuse airspace disease that has significantly worsened over the past 2 days. == Pain: Multifactoral. Patient has been reporting ongoing abdominal pain in recent day. Contributing factors may include pneumonia, infection, edema, invasive lines, immobility, bedbound status. Patient currently sedated on propofol and fentanyl; showing no signs of acute distress. Will continue to monitor. * Palliative care will continue to follow this patient throughout her hospitalization to establish stress, assist with symptom management and clarification of medical treatment goals. . Thank you for the opportunity to participate in the care of Ms. Gant. . Attestation To help prompt me to consider important information that might be impacting today's encounter and assessment, information from prior notes written by myself or my colleagues may have been "brought forward" into today's note. My signature on this note, however, is an attestation that I personally performed the exam, history, and/or decision-making noted today, and, unless otherwise indicated, the interactions with patient, family, and staff as well as the review of records all occurred today. I also attest that the listed assessment and stated plan reflect my best clinical judgment today based on the combination of historical information, prior notes, and today's exam/ interactions. When time spent is documented, it refers only to time spent today by the signer, or if indicated, combined time spent today by collaborating physician/nurse practitioner. . Stacie Echols Nov 20, 2017 12:12
[2017-11-20] MEDS: DEXTROSE 5% IN WATE 1000ML INJ 1,000 ML IV SCH (14:59)
[2017-11-20] MEDS ORDERED: PHARMACY ORDERED LAB ONE (15:45)
[2017-11-20] MEDS: PANTOPRAZOLE SODIUM 40 MG VIAL IV PUSH SCH (21:48)
[2017-11-20] MEDS: POTASSIUM CHLORIDE 20 MEQ PWD PACKET OG-TUBE SCH (21:49)
[2017-11-21] VITALS (10 sets, daily range): BP systolic 102–109; BP diastolic 52–57; PULSE 85–96; RESP 18–21; TEMP 98.3–99.9; O2SAT 92–100
[2017-11-21] MEDS: AZTREONAM INJ 2,000 MG in SODIUM CHLORIDE 0.9% INJ 100 ML IV SCH ×2 (00:53→09:10)
[2017-11-21] MEDS: metroNIDAZOLE 500 MG INJ 100 ML IV SCH ×3 (02:03→13:51)
[2017-11-21] MEDS: FUROSEMIDE 40 MG/4 ML VIAL IV PUSH SCH (03:07)
[2017-11-21] MEDS: ALBUMIN 25% INJ 100 ML IV SCH ×2 (03:07→11:30)
[2017-11-21] MEDS: CHLORHEXIDINE GLUCONATE 2 % 1 PACK (2 CLOTHS) TOP SCH (03:07)
[2017-11-21] MEDS: PROPRANOLOL HCL 10 MG TAB PO SCH ×2 (04:16→13:52)
[2017-11-21] MEDS: VANCOMYCIN 1,500 MG/NS 500 ML IV SCH ×2 (04:38)
[2017-11-21 05:59] LABS: AUTOMATED NEUTROPHIL # 10.3 TH/MM3 (1.8-7.7); BASOPHIL # 0.1 TH/MM3 (0-0.2); BASOPHIL % 0.7 % (0.0-2.0); EOSINOPHIL # 0.7 TH/MM3 (0-0.4); EOSINOPHIL % 5.3 % (0.0-4.0); HEMATOCRIT 23.1 % (35.0-46.0); HEMOGLOBIN 7.7 GM/DL (11.6-15.3); LYMPH % 8.1 % (9.0-44.0); MEAN CELL VOLUME 96.8 FL (80.0-100.0); MEAN CORPUSCULAR HEMOGLOBIN 32.4 PG (27.0-34.0); MEAN CORPUSCULAR HGB CONC 33.5 % (32.0-36.0); MEAN PLATELET VOLUME 7.5 FL (7.0-11.0); MONO % 3.7 % (0.0-8.0); MONOCYTE # 0.5 TH/MM3 (0-0.9); NEUT % 82.2 % (16.0-70.0); PLATELET COUNT 132 TH/MM3 (150-450); RED BLOOD COUNT 2.38 MIL/MM3 (4.00-5.30); WHITE BLOOD COUNT 12.5 TH/MM3 (4.0-11.0)
[2017-11-21 06:04] LABS: PROTHROMBIN TIME - PATIENT 20.5 SEC (9.8-11.6)
[2017-11-21] MEDS: PROPOFOL 1000 MG/100 ML INJ 100 ML IV PRN (06:12)
--- NOTE | 2017-11-21 06:15 | RADRPT ---
EXAM DATE/TIME: 11/21/2017 05:42 [facility] COMPARISON: CHEST SINGLE AP, November 20, 2017, 0:45. INDICATIONS : Respiratory distress. MEDICAL HISTORY : Cirrhosis. SURGICAL HISTORY : Hysterectomy. ENCOUNTER: Subsequent ACUITY: 1 week PAIN SCORE: Non-responsive. LOCATION: Bilateral chest FINDINGS: Persistent extensive bilateral airspace opacities but slightly improved since yesterday. No definite effusion. No pneumothorax. Mild cardiomegaly is stable. Endotracheal tube tip is approximately 5 cm above the dulce. Nasogastric tube courses into the stoma ch. CONCLUSION: Bilateral parenchymal opacities remain severe but are slightly improved. Janusz Curtis MD on November 21, 2017 at 6:13 Board Certified Radiologist. This report was verified electronically.
[2017-11-21 06:22] LABS: ALT (GPT) 60 U/L (10-53)
[2017-11-21 06:25] LABS: ALKALINE PHOSPHATASE 117 U/L (45-117); TOTAL BILIRUBIN ADULT 12.2 MG/DL (0.2-1.0); TOTAL PROTEIN 4.8 GM/DL (6.4-8.2)
[2017-11-21 06:31] LABS: ALBUMIN 2.6 GM/DL (3.4-5.0); AST (GOT) 103 U/L (15-37); BICARBONATE 21.7 MEQ/L (21.0-32.0); BLOOD UREA NITROGEN 24 MG/DL (7-18); CHLORIDE 108 MEQ/L (98-107); CREATININE 1.06 MG/DL (0.50-1.00); GLOMERULAR FILTRATION RATE 57 ML/MIN (>89); GLUCOSE,RANDOM 86 MG/DL (74-106); MAGNESIUM 1.8 MG/DL (1.5-2.5); SODIUM (NA) 140 MEQ/L (136-145)
[2017-11-21] MEDS: CHLORHEXIDINE 0.12% (ORAL KIT) 15 ML CUP MT SCH ×2 (08:00→09:11)
[2017-11-21] MEDS: RESP: ALBUTEROL 2.5 MG/IPRATROPIUM 0.5 MG NEB (SCH) NEB ×2 (08:08→11:37)
[2017-11-21] MEDS: SPIRONOLACTONE 25 MG TAB PO SCH (09:00)
[2017-11-21] MEDS ORDERED: LACTULOSE SYRUP 20 GM/30 ML CUP PO SCH (09:00)
[2017-11-21] MEDS: PHENYLEPHRINE INJ 40 MG in DEXTROSE 5% IN WATE 500 ML INJ 496 ML IV PRN ×2 (09:08)
[2017-11-21] MEDS: SODIUM CHLORIDE 0.9% FLUSH 10 ML FLUSH IV FLUSH PRN (09:08)
[2017-11-21] MEDS: PANTOPRAZOLE SODIUM 40 MG VIAL IV PUSH SCH (09:08)
--- NOTE | 2017-11-21 09:08 | HHI.CCPN ---
Subjective Remarks/Hospital Course Patient is a 42-year-old female with past medical history significant for alcohol dependence and cirrhosis who presented to the [facility] emergency department for dark starry stools and coffee-ground vomiting starting last night. Patient had been very weak and had sustained a fall at home according to the history. In the ER she was very pale jaundiced. Had one episode of large amount of coffee-ground vomiting in the ED. hemoglobin came back at 3.4. Sodium was 125, bicarb was only 10, anion gap 32, BUN 80 with creatinine of 1.9. Patient received 1 unit of normal saline bolus. Right IJ central line was placed and blood transfusion and FFP was ordered for INR of 1.9. Patient's blood pressure started to trend down, and emergency release blood was ordered after 1 unit of blood transfusion, blood pressure started to stabilized. Patient received in addition to 1 unit PRBC, IV thiamine, Zofran, octreotide bolus, Protonix 80 mg IV bolus, and calcium. I was contacted by the ED physician and after discussion with Dr. Wiseman decision was made to emergently transfer patient to [facility] hospital for emergent EGD and other interventions if needed. I placed patient on bicarb infusion, Protonix infusion and octreotide infusion. I evaluated the patient immediately after arrival to the main ICU. Patient remains alert awake but confused. Her lactic acid came back at 25, additional fluid bolus was ordered. Currently receiving blood and blood product transfusion. Patient was intubated for airway protection and also to facilitate EGD. After intubation I also placed a right femoral central line. After EGD patient will need a CT of the abdomen pelvis with IV and oral contrast to rule out ischemic bowel as the lactic acid is severely elevated. Empiric antibiotics with IV vancomycin, IV Azactam, IV Flagyl. Discussed the patient multiple times with Dr. Roche and Dr. Wiseman 11/13: Remains critical but some improvement in perfusion. Received 6 units of PRBC to FFP and 1 unit of platelets overnight. Urine output approximately 1 L in the last 12 hours. Hemoglobin 8.8 today, INR 1.7. Lactate 24.3 to 3 today. ABG shows resolution of metabolic acidosis. Will discontinue bicarbonate infusion reduce PRVC rate to 16. EGD yesterday showed mild gastritis in the gastric antrum, with some coffee-ground material. Angiodysplastic lesion with bleeding was found in the 2nd part of the duodenum; cauterized with complete hemostasis. CT abdomen pelvis showed no signs of bowel ischemia, probable mass right lobe of liver 11/14: Patient remains intubated sedated, critically ill but stabilizing. Still requiring 7 mcg/min of Levophed. Continued NG tube coffee-ground output. INR is 2 will transfuse 1 unit of FFP, and 10 mg vitamin K IV. Start lactulose if okay with GI, check MRI of the abdomen rule out hepatoma. Updated mother at the bedside. 11/15: Patient remains intubated still requiring Levophed to maintain blood pressure map above 65, NG tube output has decreased significantly. Hemoglobin remained stable. CPAP trial past will proceed with extubation today 11/16: Extubated yesterday breathing comfortably, Off Levophed since yesterday, UO excellent with IV Lasix given yesterday. Hb 7.7 today, INR 1.9 no evidence of active bleeding RECONSULT NOTE: 11/18: reconsulted for tachypnea and respiratory distress. evaluated. patient is tachypneic but speaking in full sentences. complaints of abdominal pain, but not unchanged from before. is significantly up from dry weight and evidence of pulmonary edema on CXR as well as 3+ edema of LEs. Gram stain on sputum with many GPCs and now on Vanc and Aztreonam for empiric coverage for HCAP pneumonia. not on spironolactone or lasix or propranolol. 11/19: good diuresis yesterday. remains tachypneic on partial NRB. edema persists. sputum culture still pending, but appears to be new HCAP pneumonia. had long talk with mother at bedside and we talked about long and short-term prognosis of ESLD. mother requests palliative care to provide additional support. 11/20: Continued deterioration and cardiopulmonary failure. We are in for long- term ventilator support and recovery is unlikely in the context of ESLD. 11/21: Less responsive today and increased requirements for vasopressor blood pressure support. The General clinical arc is one of ongoing deterioration. I spoke at length with the patient's mother today and conveyed to her that the prognosis is bleak and the patient is unlikely to survive this hospitalization. This is end-stage liver failure, now associated with fluid retention and respiratory failure. The superimposed pneumonia further reduces any chance for survival. Update: Family has met and decided unanimously to withdraw artificial support and let patient from natural causes. The patient has end-stage liver disease and has progressed to cardiopulmonary failure due to fluid retention. She is becoming coagulopathic and is now quite lethargic. The family wants to be assured that the patient will not experience any pain or discomfort following the extubation. They are concerned that she will be struggling and have requested that we use liberal amounts of sedation and analgesia to limit any symptoms of distress. I concur hardily with the decision to withdraw artificial support as this is an end-stage problem. We will make every attempt to minimize the patient's discomfort. Objective Vital Signs Date Time Temp Pulse Resp B/P (MAP) Pulse Ox O2 Delivery O2 Flow Rate FiO2 11/21/17 08:11 95 70 11/21/17 06:00 88 11/21/17 04:38 109/57 11/21/17 04:00 99.9 21 11/19/17 22:07 Non-Rebreather 15.00 Intake and Output 11/21/17 11/21/17 11/22/17 08:00 16:00 00:00 Intake Total 500 ml Output Total 850 ml Balance -350 ml Result Diagram: 11/21/17 0530 11/21/17 0530 Other Results Microbiology Date/Time Source Procedure Growth Status 11/18/17 10:15 Sputum Expectorated Sputum Gram Stain - Final Complete 11/18/17 10:15 Sputum Expectorated Sputum Sputum Culture - Final HEAVY GROWTH NORMAL RESPIRATORY FABIAN Complete 11/18/17 17:02 Urine Catheterized Urine Urine Culture - Final NO GROWTH IN 48 HOURS. Complete Laboratory Tests Test 11/21/17 06:17 Blood Gas Puncture Site RT RADIAL Blood Gas Patient Temperature 98.6 Blood Gas HCO3 23 mmol/L (22-26) Blood Gas Base Excess -1.2 mmol/L (-2-2) Blood Gas Oxygen Saturation 95 % (90-100) Arterial Blood pH 7.41 (7.380-7.420) Arterial Blood Partial Pressure CO2 37 mmHg (38-42) Arterial Blood Partial Pressure O2 89 mmHg (61-120) Arterial Blood Oxygen Content 10.5 Vol % (12.0-20.0) Arterial Blood Carboxyhemoglobin 2.0 % (0-4) Arterial Blood Methemoglobin 0.8 % (0-2) Blood Gas Hemoglobin 7.7 G/DL (12.0-16.0) Oxygen Delivery Device VENTILATOR Blood Gas Ventilator Setting Blood Gas Inspired Oxygen 50 % Imaging Chest x-ray showed no acute findings Procedures Right IJ central line, right femoral artery line, EGD, colonoscopy Objective Remarks GENERAL: middle-aged female who appears older than stated age. pale and jaundiced SKIN: Warm/dry. HEAD: Atraumatic. Normocephalic. EYES: Pupils equal and round. Positive icterus, positive pallor ENT: Mucous membranes moist, airway patent NECK: Trachea midline. No JVD. CARDIOVASCULAR: normal rate, regular rhythm. sinus. RESPIRATORY: equal chest rise. intubated now, diffuse rhonchi. GASTROINTESTINAL: Abdomen soft, mildly tender diffusely, nondistended. Stretch griggs noted. MUSCULOSKELETAL: warm, well perfused. 3+ pitting edema. NEUROLOGICAL: Unresponsive. A/P Assessment and Plan Assessment: 42yF with End-stage liver disease course complicated by hypoxic respiratory failure and GI bleeding. now with probable HCAP pneumonia and again respiratory failure, which is likely multifactorial and includes volume overload and pneumonia. continue aggressive diuresis and antibiotics. remains critically ill and multiple organs dysfunctional: both acutely and chronically. will ask palliative care to lend support to the patient and family. goals are being reconsidered at this point. NEURO: Hepatic encephalopathy -Minimize sedation -Supplement thiamine -Lactulose 30 mL was BID- increase back to QID. RESP: Acute respiratory failure-recurrent. -Intubated and placed on mechanical ventilation on admission 11/12/17, extubated -DuoNeb every 6 hours as needed - wean o2 as tolerated for goal spo2 > 90%. CV: Hemorrhagic shock-resolved Lactic acidosis, severe-resolved Acute intravascular volume overload Pulmonary Edema - lasix 40mg iv q8h with concentrated albumin - spironolactone 25mg po daily - propranolol 10mg po q8h. GI/HEME: GI bleed Angiodysplasia of the second part of duodenum Liver cirrhosis Probable right hepatic mass Severe anemia requiring transfusion Coagulopathy -Protonix 40 mg iv q12, off otreotide infusions -Emergent EGD by Dr. Roche 11/12 showed angiodysplasia of the second part of duodenum, status post cauterization with complete hemostasis -Colonoscopy by Dr. Figueroa in 11/13/2017: Black stool throughout the colon. 2 colon polyps removed -Bleeding most likely from small bowel AVMs, capsule endoscopy recommended as outpatient -s/p 6 units PRBC, 2 FFP, 1 platelet. -Continue correction of coagulopathy 5 mg vitamin K -Trend H&H, INR -MRI of the liver to rule out hepatoma-no evidence of hepatoma -CA 125 elevated at 60, may be nonspecific. Plan outpatient follow-up : Acute kidney injury/prerenal Possible hepatorenal syndrome -Secondary to severe dehydration and ATN, now resolved -diuresis as above. ID: Leukocytosis Sepsis, present on admission New HCAP pneumonia - f/u new blood and sputum cultures - continue azactam and vanc ENDO: -Electrolyte replacement per protocol PROPH: -Bilateral lower extremity SCDs. Chemical DVT prophylaxis is contraindicated, continue IV Protonix LINES: -piv's Overall impression: Critically ill and deteriorating. Multisystem organ failure. Fluid retention problematic and refractory to aggressive diuretic therapy. Critical care 48 minutes Israel Faith MD Nov 21, 2017 09:08
[2017-11-21] MEDS: MULTIVITAMIN TAB PO SCH (09:09)
[2017-11-21] MEDS: THIAMINE HCL 100 MG TAB PO SCH (09:09)
[2017-11-21] MEDS: POTASSIUM CHLORIDE 20 MEQ PWD PACKET OG-TUBE SCH (09:10)
[2017-11-21] MEDS ORDERED: FUROSEMIDE INJ 100 MG in SODIUM CHLORIDE 0.9% INJ 90 ML IV SCH (10:00)
[2017-11-21] MEDS ORDERED: LORazepam 2 MG/ML VIAL IV PUSH PRN (11:45)
--- NOTE | 2017-11-21 12:28 | HHI.HCPN ---
Reason for visit a. To assist with evaluation and management of symptoms including: Pain/ dyspnea b. To assist medical decision maker(s) with: better understanding of current medical conditions; weighing benefits/burdens of medical treatment options; making medical treatment decisions. . Subjective/Interval History Follow up visit to further discuss medical treatment goals and to assess for symptom management of pain and dyspnea. Patient seen and assessed in [facility], room 1304. Also present, patient son, mother, brother and uncle. Patient remains sedated with propofol and fentanyl, intubated on mechanical ventilation. She is less responsive today than yesterday ; requiring increased vasopressor blood pressure support. Showing no non-verbal s/s dyspnea or pain. Recent imaging and lab work reviewed. Follow-up chest x-ray this morning 2017 showed persistent extensive bilateral airspace opacities, slightly improved since yesterday. No definite effusion; no pneumothorax. = WBC: 12.5, hemoglobin 7.7, hematocrit 23.1, platelets 132, neutrophils 82.2% = BUN: 24, creatinine 1.06 (increased from 0.81 yesterday 11/20/17), GFR 57 = Total bilirubin: 12.2, AST 103, ALT 60, alkaline phosphatase 117 Patient's condition has continued to deteriorate. She has end-stage liver disease further complicated by acute kidney failure and respiratory failure. Superimposed pneumonia further reduces any chance of survival. Given patient's acute decline, multi-organ dysfunction with underlying end-stage disease, the patient's family is in agreement that the patient would not want ongoing diagnostic procedures or aggressive interventions. They have opted for compassionate withdrawal of artificial life support, allowing the patient to pass peacefully and naturally. The process of withdrawing the patient from artificial life support was discussed at length with the patient's family. Signed exhibits B&C have been placed on the patient's chart. The family expressed concerns that they do do not want the patient to suffer further stating their primary goal is her comfort. Discussed patient/family's medical treatment goals with patient's nurse (Sylvia) as well as the line painting machine operator (Dr. Hou). . Advance Directives Advance Directive Specifics Documented care wishes: No known documented care wishes were completed. . Objective Vital Signs Date Time Temp Pulse Resp B/P (MAP) Pulse Ox O2 Delivery O2 Flow Rate FiO2 11/21/17 11:39 95 70 11/21/17 09:08 85 97/53 11/21/17 08:11 95 70 11/21/17 06:00 88 11/21/17 04:46 92 50 11/21/17 04:38 94 109/57 11/21/17 04:00 50 11/21/17 04:00 89 11/21/17 04:00 99.9 89 21 109/57 (74) 96 11/21/17 02:00 85 11/21/17 00:57 84 87/52 11/21/17 00:49 84 90/48 11/21/17 00:31 94 50 11/21/17 00:00 87 11/21/17 00:00 98.3 87 18 102/52 (69) 94 11/21/17 00:00 50 11/20/17 22:00 89 11/20/17 20:00 50 11/20/17 20:00 101.9 87 22 95/53 (67) 98 11/20/17 20:00 87 11/20/17 19:42 96 50 11/20/17 18:00 85 11/20/17 16:30 96 50 11/20/17 16:00 50 11/20/17 16:00 100.9 82 20 96/51 (66) 97 11/20/17 16:00 82 11/20/17 14:00 78 Intake & Output 11/21/17 11/21/17 07:00 19:00 Intake Total 500 ml 200 ml Output Total 850 ml Balance -350 ml 200 ml IV Total 500 ml 200 ml Output Urine Total 450 ml Gastric Drainage Total 400 ml # Bowel Movements 0 Physical Exam CONSTITUTIONAL/GENERAL: This is a critically ill, jaundice, middle aged female patient who is currently intubated on mechanical ventilation TUBES/LINES/DRAINS: PIV, CVL, arterial line, OGT, ETT, Ward catheter, soft restraints SKIN: Jaundice. Ecchymoses on upper extremities. No wounds seen anteriorly. Skin temperature appropriate. Not diaphoretic. HEAD: Atraumatic. Normocephalic. EYES: Pupils equal and round and reactive. Extraocular motions intact. + scleral icterus. No injection or drainage. Fundi not examined. ENT: Hearing grossly normal. Nose without bleeding or purulent drainage. NECK: Trachea midline. CARDIOVASCULAR: Regular rate and rhythm without murmurs, gallops, or rubs. No JVD. Peripheral pulses symmetric. RESPIRATORY/CHEST: Symmetric, unlabored respirations. Breath sounds diminished bilaterally. Diffuse rhonchi GASTROINTESTINAL: Abdomen soft, non-tender, slightly distended. Hypoactive bowel sounds present, GENITOURINARY: Without palpable bladder distension. Ward catheter in place draining dark kamla colored urine. MUSCULOSKELETAL: No obvious deformities. 3+ pitting edema. LYMPHATICS: No palpable cervical or supraclavicular adenopathy. NEUROLOGICAL: Sedated, arouses slightly to verbal stimuli PSYCHIATRIC: No obvious anxiety/depression. No apparent hallucinations or other psychotic thought process. . Diagnostic Tests Laboratory Laboratory Tests Test 11/18/17 15:30 11/18/17 17:02 11/18/17 21:45 11/19/17 06:04 Ammonia 41 MCMOL/L (11-32) Total Creatine Kinase 56 U/L (26-192) 62 U/L (26-192) Troponin I LESS THAN 0.02 NG/ML LESS THAN 0.02 NG/ML Urine Color DARK-ORANGE (YELLW/STRAW) Urine Turbidity CLEAR (CLEAR) Urine pH 6.0 (5.0-8.5) Urine Specific [place] 1.018 (1.002-1.035) Urine Protein TRACE mg/dL (NEG-TRACE) Urine Glucose (UA) NEG mg/dL (NEG) Urine Ketones NEG mg/dL (NEG) Urine Occult Blood NEG (NEG) Urine Nitrite NEG (NEG) Urine Bilirubin LARGE (NEG) Urine Urobilinogen LESS THAN 2.0 MG/DL (LESS Urine Leukocyte Esterase NEG (NEG) Urine RBC 1 /hpf (0-3) Urine WBC 2 /hpf (0-5) Urine Squamous Epithelial Cells <1 /hpf (0-5) Urine Bacteria MOD /hpf (NONE) Urine Mucus FEW /lpf (OCC) Microscopic Urinalysis Comment CATH-CULTURE IND White Blood Count 18.0 TH/MM3 (4.0-11.0) Red Blood Count 2.81 MIL/MM3 (4.00-5.30) Hemoglobin 9.0 GM/DL (11.6-15.3) Hematocrit 26.8 % (35.0-46.0) Mean Corpuscular Volume 95.6 FL (80.0-100.0) Mean Corpuscular Hemoglobin 32.1 PG (27.0-34.0) Mean Corpuscular Hemoglobin Concent 33.6 % (32.0-36.0) Red Cell Distribution Width 18.9 % (11.6-17.2) Platelet Count 130 TH/MM3 (150-450) Mean Platelet Volume 7.1 FL (7.0-11.0) Neutrophils (%) (Auto) 88.0 % (16.0-70.0) Lymphocytes (%) (Auto) 4.6 % (9.0-44.0) Monocytes (%) (Auto) 6.9 % (0.0-8.0) Eosinophils (%) (Auto) 0.4 % (0.0-4.0) Basophils (%) (Auto) 0.1 % (0.0-2.0) Neutrophils # (Auto) 15.8 TH/MM3 (1.8-7.7) Lymphocytes # (Auto) 0.8 TH/MM3 (1.0-4.8) Monocytes # (Auto) 1.2 TH/MM3 (0-0.9) Eosinophils # (Auto) 0.1 TH/MM3 (0-0.4) Basophils # (Auto) 0.0 TH/MM3 (0-0.2) CBC Comment DIFF FINAL Differential Comment Blood Urea Nitrogen 14 MG/DL (7-18) Creatinine 0.61 MG/DL (0.50-1.00) Random Glucose 102 MG/DL (74-106) Total Protein 4.8 GM/DL (6.4-8.2) Albumin 2.5 GM/DL (3.4-5.0) Calcium Level 7.6 MG/DL (8.5-10.1) Magnesium Level 1.8 MG/DL (1.5-2.5) Alkaline Phosphatase 111 U/L (45-117) Aspartate Amino Transf (AST/SGOT) 77 U/L (15-37) Alanine Aminotransferase (ALT/SGPT) 89 U/L (10-53) Total Bilirubin 13.4 MG/DL (0.2-1.0) Sodium Level 139 MEQ/L (136-145) Potassium Level 3.7 MEQ/L (3.5-5.1) Chloride Level 104 MEQ/L (98-107) Carbon Dioxide Level 26.5 MEQ/L (21.0-32.0) Anion Gap 9 MEQ/L (5-15) Estimat Glomerular Filtration Rate 108 ML/MIN (>89) Test 11/20/17 02:10 11/20/17 08:22 11/20/17 16:54 11/21/17 05:30 Blood Gas Puncture Site RT RADIAL Blood Gas Patient Temperature 98.6 Blood Gas HCO3 26 mmol/L (22-26) Blood Gas Base Excess 2.4 mmol/L (-2-2) Blood Gas Oxygen Saturation 98 % (90-100) Arterial Blood pH 7.45 (7.380-7.420) Arterial Blood Partial Pressure CO2 38 mmHg (38-42) Arterial Blood Partial Pressure O2 315 mmHg (61-120) Arterial Blood Oxygen Content 12.1 Vol % (12.0-20.0) Arterial Blood Carboxyhemoglobin 2.0 % (0-4) Arterial Blood Methemoglobin 0.8 % (0-2) Blood Gas Hemoglobin 8.2 G/DL (12.0-16.0) Oxygen Delivery Device VENTILATOR Blood Gas Ventilator Setting PRVC/AC Blood Gas Inspired Oxygen 100 % White Blood Count 14.7 TH/MM3 (4.0-11.0) 12.5 TH/MM3 (4.0-11.0) Red Blood Count 2.87 MIL/MM3 (4.00-5.30) 2.38 MIL/MM3 (4.00-5.30) Hemoglobin 9.3 GM/DL (11.6-15.3) 7.7 GM/DL (11.6-15.3) Hematocrit 28.3 % (35.0-46.0) 23.1 % (35.0-46.0) Mean Corpuscular Volume 98.8 FL (80.0-100.0) 96.8 FL (80.0-100.0) Mean Corpuscular Hemoglobin 32.6 PG (27.0-34.0) 32.4 PG (27.0-34.0) Mean Corpuscular Hemoglobin Concent 32.9 % (32.0-36.0) 33.5 % (32.0-36.0) Red Cell Distribution Width 20.5 % (11.6-17.2) 21.0 % (11.6-17.2) Platelet Count 158 TH/MM3 (150-450) 132 TH/MM3 (150-450) Mean Platelet Volume 7.2 FL (7.0-11.0) 7.5 FL (7.0-11.0) Neutrophils (%) (Auto) 85.2 % (16.0-70.0) 82.2 % (16.0-70.0) Lymphocytes (%) (Auto) 8.0 % (9.0-44.0) 8.1 % (9.0-44.0) Monocytes (%) (Auto) 4.0 % (0.0-8.0) 3.7 % (0.0-8.0) Eosinophils (%) (Auto) 2.6 % (0.0-4.0) 5.3 % (0.0-4.0) Basophils (%) (Auto) 0.2 % (0.0-2.0) 0.7 % (0.0-2.0) Neutrophils # (Auto) 12.6 TH/MM3 (1.8-7.7) 10.3 TH/MM3 (1.8-7.7) Lymphocytes # (Auto) 1.2 TH/MM3 (1.0-4.8) 1.0 TH/MM3 (1.0-4.8) Monocytes # (Auto) 0.6 TH/MM3 (0-0.9) 0.5 TH/MM3 (0-0.9) Eosinophils # (Auto) 0.4 TH/MM3 (0-0.4) 0.7 TH/MM3 (0-0.4) Basophils # (Auto) 0.0 TH/MM3 (0-0.2) 0.1 TH/MM3 (0-0.2) CBC Comment DIFF FINAL DIFF FINAL Differential Comment Blood Urea Nitrogen 19 MG/DL (7-18) 24 MG/DL (7-18) Creatinine 0.81 MG/DL (0.50-1.00) 1.06 MG/DL (0.50-1.00) Random Glucose 70 MG/DL (74-106) 86 MG/DL (74-106) Total Protein 5.1 GM/DL (6.4-8.2) 4.8 GM/DL (6.4-8.2) Albumin 2.7 GM/DL (3.4-5.0) 2.6 GM/DL (3.4-5.0) Calcium Level 7.8 MG/DL (8.5-10.1) 8.0 MG/DL (8.5-10.1) Alkaline Phosphatase 127 U/L (45-117) 117 U/L (45-117) Aspartate Amino Transf (AST/SGOT) 105 U/L (15-37) 103 U/L (15-37) Alanine Aminotransferase (ALT/SGPT) 74 U/L (10-53) 60 U/L (10-53) Total Bilirubin 13.6 MG/DL (0.2-1.0) 12.2 MG/DL (0.2-1.0) Sodium Level 140 MEQ/L (136-145) 140 MEQ/L (136-145) Potassium Level 4.1 MEQ/L (3.5-5.1) 3.4 MEQ/L (3.5-5.1) Chloride Level 108 MEQ/L (98-107) 108 MEQ/L (98-107) Carbon Dioxide Level 21.7 MEQ/L (21.0-32.0) 21.7 MEQ/L (21.0-32.0) Anion Gap 10 MEQ/L (5-15) 10 MEQ/L (5-15) Estimat Glomerular Filtration Rate 78 ML/MIN (>89) 57 ML/MIN (>89) Magnesium Level 1.9 MG/DL (1.5-2.5) 1.8 MG/DL (1.5-2.5) Vancomycin Level Trough 15.7 MCG/ML (5.0-10.0) Prothrombin Time 20.5 SEC (9.8-11.6) Prothromb Time International Ratio 2.0 RATIO Test 11/21/17 06:17 Blood Gas Puncture Site RT RADIAL Blood Gas Patient Temperature 98.6 Blood Gas HCO3 23 mmol/L (22-26) Blood Gas Base Excess -1.2 mmol/L (-2-2) Blood Gas Oxygen Saturation 95 % (90-100) Arterial Blood pH 7.41 (7.380-7.420) Arterial Blood Partial Pressure CO2 37 mmHg (38-42) Arterial Blood Partial Pressure O2 89 mmHg (61-120) Arterial Blood Oxygen Content 10.5 Vol % (12.0-20.0) Arterial Blood Carboxyhemoglobin 2.0 % (0-4) Arterial Blood Methemoglobin 0.8 % (0-2) Blood Gas Hemoglobin 7.7 G/DL (12.0-16.0) Oxygen Delivery Device VENTILATOR Blood Gas Ventilator Setting Blood Gas Inspired Oxygen 50 % . Result Diagram: 11/21/1730 11/21/17 0530 Microbiology Microbiology Date/Time Source Procedure Growth Status 11/18/17 15:40 Blood Peripheral Aerobic Blood Culture - Preliminary NO GROWTH IN 3 DAYS Resulted 11/18/17 15:40 Blood Peripheral Anaerobic Blood Culture - Preliminary NO GROWTH IN 3 DAYS Resulted 11/18/17 15:30 Blood Peripheral Aerobic Blood Culture - Preliminary NO GROWTH IN 3 DAYS Resulted 11/18/17 15:30 Blood Peripheral Anaerobic Blood Culture - Preliminary NO GROWTH IN 3 DAYS Resulted 11/20/17 01:22 Sputum Endotracheal Gram Stain - Final Resulted 11/20/17 01:22 Sputum Endotracheal Sputum Culture Pending Resulted 11/18/17 17:02 Urine Catheterized Urine Urine Culture - Final NO GROWTH IN 48 HOURS. Complete . Imaging Last 72 hours Impressions Chest X-Ray 11/21/17 0000 Signed Impressions: Service Date/Time: Tuesday, November 21, 2017 05:42 - CONCLUSION: Bilateral parenchymal opacities remain severe but are slightly improved. Janusz Curtis MD Chest X-Ray 11/20/17 0000 Signed Impressions: Service Date/Time: Monday, November 20, 2017 00:45 - CONCLUSION: Diffuse airspace disease, much worse over the past 2 days. Appropriate position of the endotracheal tube tip. Janusz Curtis MD . Procedures 11/12/2017: Intubation 11/12/2017: NGT placed; later OGT placed 11/12/2017:Right IJ line placed, tip in the superior vena cava. 11/12/2017: Right femoral arterial line placement 11/12/2017: EGD with ablation 11/13/2017: Colonoscopy 11/15/2017: Extubated 11/20/2017: Reintubated . Assessment and Plan Disease Oriented Problem List: (1) Hemorrhagic shock (2) Upper gastrointestinal bleed (3) Severe anemia (4) Metabolic acidosis (5) Coagulopathy (6) Liver cirrhosis (7) Alcohol dependence (8) Encephalopathy (9) Acute kidney failure (10) Lactic acidemia Symptom Scale: Pertinent Non-Medical Issues Psychosocial:Patient is originally from [place]. She is not ; she has 1 son (Deny) who is 20 years old. Patient moved to [place] with her mother in September, to try to "get her life on track." Apparently the patient's boyfriend was recently killed and an MCA, and another friend in his sleep. 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 Spiritual: Uatsdin magui Legal:Patient is not . Per [place] statutes, in the absence of written advanced directives healthcare proxy decision making would fall to the patient' s only adult son. However, Deny (son) has opted out of HCP decision-making. Patient's father is , therefore healthcare proxy decision making falls to the patient's mother (Ruma Gant). Ethical issues impacting care: No known ethical issues impacting care at this time. . Important Contacts Ruma Gant, mother: [phone] . Prognosis Patient is a 42-year-old female with a known history of liver cirrhosis who was admitted with GIB and HCAP Pneumonia. Having ongoing deterioration and cardiopulmonary failure requiring reintubation on 11/20/2017. Patient is high risk for ongoing decline and complications, recovery is unlikely in the context of ESLD. . Code Status: No Code Plan * NO CODE-DNR/DNI * Patient is not . Per [place] statutes, in the absence of written advanced directives healthcare proxy decision making would fall to the patient' s only adult son. However, Deny (son) has opted out of HCP decision-making. Patient's father is , therefore healthcare proxy decision making falls to the patient's mother (Ruma Gant). * Medical treatment goals discussed with bedside nurse (Sylvia lucas (and line painting machine operator (Dr. Hou). * Patient's condition has continued to deteriorate. She has end-stage liver disease further complicated by acute kidney failure, fluid retention and respiratory failure. Superimposed pneumonia further reduces any chance of survival. Given patient's acute decline with underlying end-stage disease. * GOALS: The patient's family is in agreement that the patient would not want ongoing diagnostic procedures or aggressive interventions. They have opted for compassionate withdrawal of artificial life support, allowing the patient to pass peacefully and naturally. The process of withdrawing the patient from artificial life support was discussed at length with the patient's family. * Signed exhibits B&C have been placed on the patient's chart. * The family expressed concerns that they do do not want the patient to suffer further stating their primary goal is her comfort. Comfort medications have been ordered. == Dyspnea: Intubated 11/12/17-11/15/17. Having worsening respiratory status requiring reintubation on 11/20/2017. Sputum culture pending, appears to have new HCAP pneumonia. Follow-up chest x-ray this morning 11/21/2017 showed persistent extensive bilateral airspace opacities, slightly improved since yesterday. No definite effusion; no pneumothorax. == Pain: Multifactoral. Patient has been reporting ongoing abdominal pain in recent day. Contributing factors may include pneumonia, infection, edema, invasive lines, immobility, bedbound status. Patient currently sedated on propofol and fentanyl; showing no signs of acute distress. Comfort medications have been ordered prior to compassionate withdrawal of artificial life support. * Palliative care will continue to follow this patient throughout her hospitalization to establish stress, assist with symptom management and clarification of medical treatment goals. . Attestation To help prompt me to consider important information that might be impacting today's encounter and assessment, information from prior notes written by myself or my colleagues may have been "brought forward" into today's note. My signature on this note, however, is an attestation that I personally performed the exam, history, and/or decision-making noted today, and, unless otherwise indicated, the interactions with patient, family, and staff as well as the review of records all occurred today. I also attest that the listed assessment and stated plan reflect my best clinical judgment today based on the combination of historical information, prior notes, and today's exam/ interactions. When time spent is documented, it refers only to time spent today by the signer, or if indicated, combined time spent today by collaborating physician/nurse practitioner. . Stacie Echols Nov 21, 2017 12:28
[2017-11-21] MEDS ORDERED: HYOSCYAMINE 0.5 MG/ML AMP IV PUSH PRN (12:30)
[2017-11-21] MEDS: LORazepam 2 MG/ML VIAL IV PRN ×4 (12:31→14:12)
[2017-11-21] MEDS: HYDROmorphone HCL PF 2 MG/ML VIAL IV PUSH PRN ×3 (12:31→13:34)
[2017-11-21] MEDS: DEXTROSE 5% IN WATE 1000ML INJ 1,000 ML IV SCH (13:52)
[2017-11-21] MEDS ORDERED: HYDROmorphone HCL PF 4 MG/ML VIAL IV PUSH PRN (15:00)
--- NOTE | 2017-11-21 15:11 | DEATH SUM ---
Summary Demographics Date Pronounced : Nov 21, 2017 Time Of : 1417 Pronounced By: DOTTY ANGEL RN AND RAZA RUELAS RN Preliminary Cause of : Multi Organ Failure Israel Faith MD Nov 21, 2017 15:11
--- NOTE | 2017-11-21 15:14 | HHI.DS ---
Discharge Summary Admission Date Nov 12, 2017 at 14:06 Discharge Date: Nov 21, 2017 Admitting Diagnosis Severe Anemia, Upper and lower GI bleeding, Acidosis. (1) Hemorrhagic shock ICD Code: R57.8 - Other shock Diagnosis: Principal Status: Acute (2) Liver cirrhosis ICD Code: K74.60 - Unspecified cirrhosis of liver Diagnosis: Secondary (3) Upper gastrointestinal bleed ICD Code: K92.2 - Gastrointestinal hemorrhage, unspecified Diagnosis: Principal (4) Severe anemia ICD Code: D64.9 - Anemia, unspecified Diagnosis: Principal Status: Acute (5) Metabolic acidosis ICD Code: E87.2 - Acidosis Diagnosis: Principal Status: Acute (6) Lactic acidemia ICD Code: E87.2 - Acidosis Diagnosis: Principal (7) Coagulopathy ICD Code: D68.9 - Coagulation defect, unspecified Diagnosis: Principal (8) Encephalopathy ICD Code: G93.40 - Encephalopathy, unspecified Diagnosis: Principal Status: Acute (9) Hyponatremia ICD Code: E87.1 - Hypo-osmolality and hyponatremia Diagnosis: Principal Status: Acute (10) Hypocalcemia ICD Code: E83.51 - Hypocalcemia Status: Acute (11) Acute kidney failure ICD Code: N17.9 - Acute kidney failure, unspecified Diagnosis: Principal (12) Alcohol dependence ICD Code: F10.20 - Alcohol dependence, uncomplicated Diagnosis: Secondary Procedures Right IJ central line, right femoral artery line, EGD, colonoscopy Brief History Patient is a 42-year-old female with past medical history significant for alcohol dependence and cirrhosis who presented to the [facility] emergency department for dark starry stools and coffee-ground vomiting starting last night. Patient had been very weak and had sustained a fall at home according to the history. In the ER she was very pale jaundiced. Had one episode of large amount of coffee-ground vomiting in the ED. hemoglobin came back at 3.4. Sodium was 125, bicarb was only 10, anion gap 32, BUN 80 with creatinine of 1.9. Patient received 1 unit of normal saline bolus. Right IJ central line was placed and blood transfusion and FFP was ordered for INR of 1.9. Patient's blood pressure started to trend down, and emergency release blood was ordered after 1 unit of blood transfusion, blood pressure started to stabilized. Patient received in addition to 1 unit PRBC, IV thiamine, Zofran, octreotide bolus, Protonix 80 mg IV bolus, and calcium. I was contacted by the ED physician and after discussion with Dr. Wiseman decision was made to emergently transfer patient to Main hospital for emergent EGD and other interventions if needed. I placed patient on bicarb infusion, Protonix infusion and octreotide infusion. I evaluated the patient immediately after arrival to the main ICU. Patient remains alert awake but confused. Her lactic acid came back at 25, additional fluid bolus was ordered. Currently receiving blood and blood product transfusion. Patient was intubated for airway protection and also to facilitate EGD. After intubation I also placed a right femoral central line. After EGD patient will need a CT of the abdomen pelvis with IV and oral contrast to rule out ischemic bowel as the lactic acid is severely elevated. Empiric antibiotics with IV vancomycin, IV Azactam, IV Flagyl. Discussed the patient multiple times with Dr. Roche and Dr. Wiseman CBC/BMP: 11/21/17 0530 11/21/17 0530 Significant Findings Laboratory Tests Test 11/18/17 15:30 11/18/17 17:02 11/18/17 21:45 11/19/17 06:04 Ammonia 41 MCMOL/L (11-32) Troponin I LESS THAN 0.02 NG/ML LESS THAN 0.02 NG/ML Urine Color DARK-ORANGE (YELLW/STRAW) Urine Bilirubin LARGE (NEG) Urine Bacteria MOD /hpf (NONE) Urine Mucus FEW /lpf (OCC) White Blood Count 18.0 TH/MM3 (4.0-11.0) Red Blood Count 2.81 MIL/MM3 (4.00-5.30) Hemoglobin 9.0 GM/DL (11.6-15.3) Hematocrit 26.8 % (35.0-46.0) Red Cell Distribution Width 18.9 % (11.6-17.2) Platelet Count 130 TH/MM3 (150-450) Neutrophils (%) (Auto) 88.0 % (16.0-70.0) Lymphocytes (%) (Auto) 4.6 % (9.0-44.0) Neutrophils # (Auto) 15.8 TH/MM3 (1.8-7.7) Lymphocytes # (Auto) 0.8 TH/MM3 (1.0-4.8) Monocytes # (Auto) 1.2 TH/MM3 (0-0.9) Total Protein 4.8 GM/DL (6.4-8.2) Albumin 2.5 GM/DL (3.4-5.0) Calcium Level 7.6 MG/DL (8.5-10.1) Aspartate Amino Transf (AST/SGOT) 77 U/L (15-37) Alanine Aminotransferase (ALT/SGPT) 89 U/L (10-53) Total Bilirubin 13.4 MG/DL (0.2-1.0) Test 11/20/17 02:10 11/20/17 08:22 11/20/17 16:54 11/21/17 05:30 Blood Gas Base Excess 2.4 mmol/L (-2-2) Arterial Blood pH 7.45 (7.380-7.420) Arterial Blood Partial Pressure O2 315 mmHg (61-120) Blood Gas Hemoglobin 8.2 G/DL (12.0-16.0) White Blood Count 14.7 TH/MM3 (4.0-11.0) 12.5 TH/MM3 (4.0-11.0) Red Blood Count 2.87 MIL/MM3 (4.00-5.30) 2.38 MIL/MM3 (4.00-5.30) Hemoglobin 9.3 GM/DL (11.6-15.3) 7.7 GM/DL (11.6-15.3) Hematocrit 28.3 % (35.0-46.0) 23.1 % (35.0-46.0) Red Cell Distribution Width 20.5 % (11.6-17.2) 21.0 % (11.6-17.2) Neutrophils (%) (Auto) 85.2 % (16.0-70.0) 82.2 % (16.0-70.0) Lymphocytes (%) (Auto) 8.0 % (9.0-44.0) 8.1 % (9.0-44.0) Neutrophils # (Auto) 12.6 TH/MM3 (1.8-7.7) 10.3 TH/MM3 (1.8-7.7) Blood Urea Nitrogen 19 MG/DL (7-18) 24 MG/DL (7-18) Random Glucose 70 MG/DL (74-106) Total Protein 5.1 GM/DL (6.4-8.2) 4.8 GM/DL (6.4-8.2) Albumin 2.7 GM/DL (3.4-5.0) 2.6 GM/DL (3.4-5.0) Calcium Level 7.8 MG/DL (8.5-10.1) 8.0 MG/DL (8.5-10.1) Alkaline Phosphatase 127 U/L (45-117) Aspartate Amino Transf (AST/SGOT) 105 U/L (15-37) 103 U/L (15-37) Alanine Aminotransferase (ALT/SGPT) 74 U/L (10-53) 60 U/L (10-53) Total Bilirubin 13.6 MG/DL (0.2-1.0) 12.2 MG/DL (0.2-1.0) Chloride Level 108 MEQ/L (98-107) 108 MEQ/L (98-107) Estimat Glomerular Filtration Rate 78 ML/MIN (>89) 57 ML/MIN (>89) Vancomycin Level Trough 15.7 MCG/ML (5.0-10.0) Platelet Count 132 TH/MM3 (150-450) Eosinophils (%) (Auto) 5.3 % (0.0-4.0) Eosinophils # (Auto) 0.7 TH/MM3 (0-0.4) Prothrombin Time 20.5 SEC (9.8-11.6) Creatinine 1.06 MG/DL (0.50-1.00) Potassium Level 3.4 MEQ/L (3.5-5.1) Test 11/21/17 06:17 Arterial Blood Partial Pressure CO2 37 mmHg (38-42) Arterial Blood Oxygen Content 10.5 Vol % (12.0-20.0) Blood Gas Hemoglobin 7.7 G/DL (12.0-16.0) Imaging CT and MRI abdomen and pelvis: Cirrhosis of the liver, ascites, portal hypertension with gastric varices PE at Discharge GENERAL: Well-developed well-nourished pale and jaundiced in respiratory distress on nonrebreather SKIN: Warm/dry. CARDIOVASCULAR: S1-S2 normal. No murmur appreciated. RESPIRATORY: Breath sounds equal bilaterally, diminished at the bases with scattered rhonchi/crackles GASTROINTESTINAL: Abdomen soft, non-tender, nondistended. Stretch griggs noted. No fluid thrill MUSCULOSKELETAL: Extremities are poorly perfused. Anasarca noted NEUROLOGICAL: Alert awake, follows commands, Moving all extremities. Nonfocal exam Transfer Summary 40-year-old patient with chronic alcoholism and advanced hepatic cirrhosis complicated by portal hypertension presents with massive upper GI bleeding. Esophagogastroduodenoscopy reveals angiodysplastic lesion in the second part of the duodenum which is successfully cauterized. Patient remained in shock however and her resuscitation was complicated by persistent coagulopathy, hepatic dysfunction and subsequent failure, hepatic encephalopathy, fluid retention, and hypoxemic respiratory failure. After several days she was successfully extubated but required reintubation due to ongoing respiratory problems. Her clinical condition continued to deteriorate and she lapsed into multisystem organ failure with hepatic cardiac and pulmonary failure. She became grossly edematous and was unresponsive to diuretic therapy. The family gathered on November 21, 2017 and decided to withdraw artificial support. Her power of civil attorney for healthcare was present as well. Shortly following extubation she and was pronounced at 1417 hours on November 21, 2017. Hospital Course Patient is a 42-year-old female with past medical history significant for alcohol dependence and cirrhosis who presented to the [facility] emergency department for dark starry stools and coffee-ground vomiting starting last night. Patient had been very weak and had sustained a fall at home according to the history. In the ER she was very pale jaundiced. Had one episode of large amount of coffee-ground vomiting in the ED. hemoglobin came back at 3.4. Sodium was 125, bicarb was only 10, anion gap 32, BUN 80 with creatinine of 1.9. Patient received 1 unit of normal saline bolus. Right IJ central line was placed and blood transfusion and FFP was ordered for INR of 1.9. Patient's blood pressure started to trend down, and emergency release blood was ordered after 1 unit of blood transfusion, blood pressure started to stabilized. Patient received in addition to 1 unit PRBC, IV thiamine, Zofran, octreotide bolus, Protonix 80 mg IV bolus, and calcium. I was contacted by the ED physician and after discussion with Dr. Wiseman decision was made to emergently transfer patient to Main hospital for emergent EGD and other interventions if needed. I placed patient on bicarb infusion, Protonix infusion and octreotide infusion. I evaluated the patient immediately after arrival to the main ICU. Patient remains alert awake but confused. Her lactic acid came back at 25, additional fluid bolus was ordered. Currently receiving blood and blood product transfusion. Patient was intubated for airway protection and also to facilitate EGD. After intubation I also placed a right femoral central line. After EGD patient will need a CT of the abdomen pelvis with IV and oral contrast to rule out ischemic bowel as the lactic acid is severely elevated. Empiric antibiotics with IV vancomycin, IV Azactam, IV Flagyl. Discussed the patient multiple times with Dr. Roche and Dr. Wiseman 11/13: Remains critical but some improvement in perfusion. Received 6 units of PRBC to FFP and 1 unit of platelets overnight. Urine output approximately 1 L in the last 12 hours. Hemoglobin 8.8 today, INR 1.7. Lactate 24.3 to 3 today. ABG shows resolution of metabolic acidosis. Will discontinue bicarbonate infusion reduce PRVC rate to 16. EGD yesterday showed mild gastritis in the gastric antrum, with some coffee-ground material. Angiodysplastic lesion with bleeding was found in the 2nd part of the duodenum; cauterized with complete hemostasis. CT abdomen pelvis showed no signs of bowel ischemia, probable mass right lobe of liver 11/14: Patient remains intubated sedated, critically ill but stabilizing. Still requiring 7 mcg/min of Levophed. Continued NG tube coffee-ground output. INR is 2 will transfuse 1 unit of FFP, and 10 mg vitamin K IV. Start lactulose if okay with GI, check MRI of the abdomen rule out hepatoma. Updated mother at the bedside. 11/15: Patient remains intubated still requiring Levophed to maintain blood pressure map above 65, NG tube output has decreased significantly. Hemoglobin remained stable. CPAP trial past will proceed with extubation today 11/16: Extubated yesterday breathing comfortably, Off Levophed since yesterday, UO excellent with IV Lasix given yesterday. Hb 7.7 today, INR 1.9 no evidence of active bleeding RECONSULT NOTE: 11/18: reconsulted for tachypnea and respiratory distress. evaluated. patient is tachypneic but speaking in full sentences. complaints of abdominal pain, but not unchanged from before. is significantly up from dry weight and evidence of pulmonary edema on CXR as well as 3+ edema of LEs. Gram stain on sputum with many GPCs and now on Vanc and Aztreonam for empiric coverage for HCAP pneumonia. not on spironolactone or lasix or propranolol. 11/19: good diuresis yesterday. remains tachypneic on partial NRB. edema persists. sputum culture still pending, but appears to be new HCAP pneumonia. had long talk with mother at bedside and we talked about long and short-term prognosis of ESLD. mother requests palliative care to provide additional support. 11/20: Continued deterioration and cardiopulmonary failure. We are in for long- term ventilator support and recovery is unlikely in the context of ESLD. 11/21: Less responsive today and increased requirements for vasopressor blood pressure support. The General clinical arc is one of ongoing deterioration. I spoke at length with the patient's mother today and conveyed to her that the prognosis is bleak and the patient is unlikely to survive this hospitalization. This is end-stage liver failure, now associated with fluid retention and respiratory failure. The superimposed pneumonia further reduces any chance for survival. Update: Family has met and decided unanimously to withdraw artificial support and let patient from natural causes. The patient has end-stage liver disease and has progressed to cardiopulmonary failure due to fluid retention. She is becoming coagulopathic and is now quite lethargic. The family wants to be assured that the patient will not experience any pain or discomfort following the extubation. They are concerned that she will be struggling and have requested that we use liberal amounts of sedation and analgesia to limit any symptoms of distress. I concur hardily with the decision to withdraw artificial support as this is an end-stage problem. We will make every attempt to minimize the patient's discomfort. Pt Condition on Discharge: Deteriorating Israel Faith MD Nov 21, 2017 15:13
[2017-11-21] MEDS ORDERED: PHARMACY ORDERED LAB ONE (15:45)
== END 2017-11-21 15:15 | disposition expired | DRG 871 ==
LOC: PHED 11:21 → PHEDA 14:06 → N03B 15:57 → N03A 11-20 00:37
PROVIDERS: ADMIT Internal Medicine Critical Care Medicine; ATTEND Internal Medicine Critical Care Medicine
PROC: 04HY32Z Insertion of Monitoring Device into Lower Artery, Percutaneous Approach (ICD-10-PCS; 2017-11-12)
PROC: 30233N1 Transfusion of Nonautologous Red Blood Cells into Peripheral Vein, Percutaneous Approach (ICD-10-PCS; 2017-11-12)
PROC: 30233R1 Transfusion of Nonautologous Platelets into Peripheral Vein, Percutaneous Approach (ICD-10-PCS; 2017-11-12)
PROC: 02HV33Z Insertion of Infusion Device into Superior Vena Cava, Percutaneous Approach (ICD-10-PCS; 2017-11-12)
PROC: 0BH17EZ Insertion of Endotracheal Airway into Trachea, Via Natural or Artificial Opening (ICD-10-PCS; 2017-11-12)
PROC: 5A1945Z Respiratory Ventilation, 24-96 Consecutive Hours (ICD-10-PCS; 2017-11-12)
PROC: 0W3P8ZZ Control Bleeding in Gastrointestinal Tract, Via Natural or Artificial Opening Endoscopic (ICD-10-PCS; 2017-11-12)
PROC: 0D598ZZ Destruction of Duodenum, Via Natural or Artificial Opening Endoscopic (ICD-10-PCS; 2017-11-12)
PROC: 30233K1 Transfusion of Nonautologous Frozen Plasma into Peripheral Vein, Percutaneous Approach (ICD-10-PCS; principal; 2017-11-12 17:10)
PROC: 0DBK8ZX Excision of Ascending Colon, Via Natural or Artificial Opening Endoscopic, Diagnostic (ICD-10-PCS; 2017-11-13)
PROC: 0DBN8ZX Excision of Sigmoid Colon, Via Natural or Artificial Opening Endoscopic, Diagnostic (ICD-10-PCS; 2017-11-13)
PROC: 0BH17EZ Insertion of Endotracheal Airway into Trachea, Via Natural or Artificial Opening (ICD-10-PCS; 2017-11-20)
PROC: 5A1945Z Respiratory Ventilation, 24-96 Consecutive Hours (ICD-10-PCS; 2017-11-20)
PROC: 0CJS8ZZ Inspection of Larynx, Via Natural or Artificial Opening Endoscopic (ICD-10-PCS; 2017-11-20)
DX: A41.9 Sepsis, unspecified organism (principal); J96.01 Acute respiratory failure with hypoxia; K76.7 Hepatorenal syndrome; R57.8 Other shock; N17.0 Acute kidney failure with tubular necrosis; J18.9 Pneumonia, unspecified organism; J81.1 Chronic pulmonary edema; D68.9 Coagulation defect, unspecified; K31.811 Angiodysplasia of stomach and duodenum with bleeding; E87.2 Acidosis; E87.1 Hypo-osmolality and hyponatremia; D62 Acute posthemorrhagic anemia; K92.1 Melena; K92.0 Hematemesis; K76.6 Portal hypertension; E83.51 Hypocalcemia; K70.31 Alcoholic cirrhosis of liver with ascites; F17.210 Nicotine dependence, cigarettes, uncomplicated; F10.20 Alcohol dependence, uncomplicated; K72.90 Hepatic failure, unspecified without coma; K29.70 Gastritis, unspecified, without bleeding; E86.0 Dehydration; D12.2 Benign neoplasm of ascending colon; D12.5 Benign neoplasm of sigmoid colon; R29.6 Repeated falls; K20.9 Esophagitis, unspecified; R97.1 Elevated cancer antigen 125 [CA 125]; Y95 Nosocomial condition; Z51.5 Encounter for palliative care; E87.70 Fluid overload, unspecified; D69.6 Thrombocytopenia, unspecified; Z91.81 History of falling
CPT/HCPCS: 31500; 36430; 36556; 36600; 71045; 74018; 74176; 74183; 80053; 80074; 80202; 80307; 81001; 82105; 82140; 82378; 82550; 82805; 82948; 83605; 83690; 83735; 84100; 84132; 84443; 84484; 85007; 85018; 85025; 85027; 85379; 85384; 85610; 85730; 86301; 86304; 86403; 86850; 86900; 86901; 86920; 86927; 87040; 87070; 87086; 87147; 87186; 87205; 87641; 88305; 93005; 94002; 94003; 94150; 94640; 94664; 94770; 96361; 96374; 96375; A9579; C9113; J0610; J1120; J1170; J1940; J1980; J2060; J2250; J2354; J2370; J2405; J3010; J3370; J3411; J3430; J3480; J7030; J7040; J7050; J7060; J7070; J7120; P9016; P9017; P9035; P9047; Q9963